=== PATIENT | female | born 1970 | race Caucasian/White ===

== ENCOUNTER 2025-01-26 13:05 | Outpatient (CLI) | payer BC, SELFPAY ==
--- OUTSIDE RECORDS SUMMARY | 2025-01-26 14:42 | XMS_ITS | Continuity of Care Document ---
Author Organization [facility] Address [address] [place] [address] Phone Care Team Providers Care Vascular Technologist Name Role Phone Messi Saunders MD Unavailable Unavailable Allergies, Adverse Reactions, Alerts Substance Reaction Status Criticality azithromycin Vomiting Active No Information levofloxacin RashRash Active No Information codeine RashRash Active No Information Medications Medication Instructions Dosage Effective Dates (start - stop) Status Comments levothyroxine 75 mcg tablet take 1 tablet by oral route every day 75 MCG - Active Reclast 5 mg/100 mL intravenous piggyback take 1 Tablet by Oral route once 1 Tablet - Active Vitamin D3 125 mcg (5,000 unit) tablet take 1 tablet by oral route every day - No Longer Active Procedures Procedure Date FALL RISK ASSESSMENT DOC'D PRES/ABSN URINE INCON ASSESS Pt inelig neg scrn depres PREVENTATIVE-EST: 40-64 BODY MASS INDEX DOCD SYST BP LT 130 MM HG DIAST BP 80-89 MM HG FALL RISK ASSESSMENT DOC'D PRES/ABSN URINE INCON ASSESS URINALYSIS, DIPSTICK (UA) - Office Lab F Pt inelig neg scrn depres PREVENTATIVE-NEW: 40-64 BODY MASS INDEX DOCD SYST BP LT 130 MM HG DIAST BP < 80 MM HG Advance Directives Directive Yes / No Effective Date File Name No Information Encounters Encounter Description Practice Location Reason(s) For Visit Diagnoses Date Provider Providers Copied on Encounter [facility], [address], [place], [place], [address] , tel: [phone] [facility] No Information 5 Chip Swenson. [address] [place] [address], [address] , [place], [place], [address] , . tel: [phone] Referring Provider: Messi Saunders, [address] [place] [address] [address] , [place], [address] . tel:[phone] PREVENTATIVE -EST: [facility], [address], [place], [place], [address] , tel: [phone] [facility] Chronic Conditions (chief complaint)c hronic conditions (chief complaint) Encounter for annual health examinationAcquired hypothyroidismOAB (overactive bladder)Body mass index [BMI] 26.0-26.9, adult 4 Chip Swenson. [address] [place] [address], [facility] [address] , [place], [place], [id number] , . tel: [phone] Referring Provider: Messi Saunders, [address] [place] [address] [address] , [place], [place], [address] [place] [address] . tel:[phone] [facility], [address], [place], [place], [address] , tel: [phone] [facility] No Information 3 Chip Swenson. [address] [place] [address], [address] [place], [place], [id number] , . tel: [phone] PREVENTATIVE -NEW: [facility], [address], [place], [place], [address] , tel: [phone] [facility] preventive exam (chief complaint)C hronic Conditions (chief complaint)c hronic conditions (chief complaint) Encounter for general adult medical examination without abnormal findingsMalignant neoplasm of right female breast, unspecified estrogen receptor status, unspecified site of breastAcquired hypothyroidismHearin g loss of left ear, unspecified hearing loss typeSeasonal allergiesAnxiety and depressionPrimary insomniaUrinary urgencyMicroscopic hematuriaHistory of acute lymphoid leukemiaBody mass index [BMI] 28.0-28.9, adult [address] Elo Winter[id number] [place] [address], [address], [place], [place], [address] , . tel: [phone] Referring Provider: Messi Saunders, [address] [place] [address] [address], [place], [address] . tel:[phone] Family History Family Member Type Diagnosis Age At Onset Father Problem Hypercholesterolemia Father Problem Hearing loss Mother Problem Diabetes mellitus Sister Problem Mental disorder Father Problem Dementia Father Problem Stroke Brother Problem Obesity Sister Problem Cancer, breast Father Problem Hypertension Mother Problem Obesity Mother Problem Irritable bowel syndrome Sister Problem Migraine headaches Immunizations Vaccine Date Status Comments Pfizer Comirnaty COVID vacci ne, sonny-sucrose, 30mcg/0.3mL dose, 12 years and older administered Source: Source Unspe cified Fluzone Trivalent, preservat lindsay free, split virus, 0.5mL dosage administered Source: Source Unspecified SHINGRIX (Zoster vaccine recombinant, adjuvanted) administered Source: Source Unspecified SHINGRIX (Zoster vaccine recombinant, adjuvanted) administered Source: Source Unspecified Pneumococcal conjugate PCV20 administered Source: Source Unspecified Moderna (Bivalent Booster) C OVID Vac, 50mgc/0.5 mL, 18+ years administered Source: Terrie rce Unspecified Fluzone High-Dose, high dose , preservative free administered Source: Source Unspe cified Tdap administered Source: Source Unspecified Moderna COVID19 Vaccine, 0.5 mL per dose, 2 doses, administered 28 days apart administered Source: Source Unspe cified J&J COVID/Adenovirus Vaccine [id number] viral particles/0.5mL administered Source: Terrie rce Unspecified Payers Payer name Insurance type Covered green party ID Authoriza tion(s) No Information Social History Type Description Quantity Date Captured Comments Sex Female Smoking Status No Information Chief Complaint And Reason For Visit No Information Reason For Referral Reason For Referral No Information Plan Of Treatment Date Type Action Status Goal Dietary manageme nt education, guidance, and counseling completed Goal Dietary manageme nt education, guidance, and counseling completed Appointment Penny Walter BOOKED History Of Present Illness Encounter Date Complaint History Of Prese nt Illness Chronic Conditions *See Chronic Conditions HPI chronic conditions *See Chronic Conditions HPI chronic conditions *See Chronic Conditions HPI Chronic Conditions *See Chronic Conditions HPI preventive exam : 2. Tasneem ty: Term: 2. Livin. The patient states she uses abstinence for control. Last LMP was 09/07/2013. Her menses is absent. Negative for: breast discharge, breast lump(s) and breast pain. Positive for: breast self exam.Postmenopausal: Type: chemo induced. Negative for Hormone replacement therapy. Menopausal symptoms negative for: hot flashes, night sweats and vaginal dryness. Menopausal symptoms positive for: insomnia. Associated symptoms include anxiety and depression. Pertinent negatives include abnormal bleeding (hematology), abnormal vaginal bleeding, difficulty falling sleep, history of infertility, nocturia, sexual dysfunction, sleep disturbances, urinary incontinence, urinary urgency, vaginal discharge and vaginal itching. Diet healthy. She reports getting calcium from dietary sources. She reports getting calcium supplement daily. She reports taking a vitamin D supplement daily. She does not take multivitamins. She does not take Folic acid.The patient states her exercise level is moderate. The patient does not use tobacco. She has not been exposed to passive smoke. She has not been exposed to passive vaping. She formerly drank alcohol. Additional information: She is here today to establish as a new pt. of this practice. She is , 2 sons. She states she is not presently working- was displaced she states. She does not smoke, stopped drinking alcohol in 2016. She had mammogram in Jun 2022, colonoscopy in February 2022. She is going to see manager recruiting for well woman exam soon. She sees Dr Peraza for endocrinology, Dr [facility] for breast cancer (Yessi Rodriguez), She notes she will be seeing Dr Pollard at [facility] next month after breast MRI/mammogram. She had 1 COVID vaccine (Aditya & Aditya) and 2 boosters. She had flu vaccine 07/30/22, She has not had shingrix vaccine.. Functional Status Date Functional Assessmen t No Information Instructions Date Instruction Additional Infor mation Get appropriate vacc martha. Return 1 year Related to Encounter for annual health examination Giving encouragement to exercise Related to Body mass index (BMI) 26.0-26.9, adult Dietary management e ducation, guidance, and counseling Related to Body mass index (BMI) 26.0-26.9, adult Disease process Get labs as planned. Related to Acquired hypothyroidism Could see urology. Related to OA B (overactive bladder) She is here today to establish as a new pt. of this practice. She is , 2 sons. She states she is not presently working- was displaced she states. She does not smoke, stopped drinking alcohol in 2016. She had mammogram in Jun 2022, colonoscopy in February 2022. She is going to see manager recruiting for well woman exam soon. She sees Dr Peraza for endocrinology, Dr [facility] for breast cancer (Yessi Rodriguez), She notes she will be seeing Dr Pollard at [facility] next month after breast MRI/mammogram. She had 1 COVID vaccine (Aditya & Aditya) and 2 boosters. She had flu vaccine 07/30/22, She has not had shingrix vaccine. Related to Encounter for general adult medical examination without abnormal findings She continues to fol low with oncology. Related to History of acute lymphoid leukemia sending sample to lab for C&S. R elated to Microscopic hematuria Checking urine dip today Related to Urinary urgency Discussed good sleep habits with her. Related to Primary insomnia She will advise if symptoms wors en. Related to Anxiety and depression She will advise if s ymptoms worsen or when OTC meds are not helpful. Related to Seasonal allergies She states she will advise of changes in hearing. Related to Hearing loss of left ear, unspecified hearing loss type She will continue pl an of care with Dr Peraza. Related to Acquired hypothyroidism Continue present corrina n of care, has mamm and MRI scheduled [facility] next month and will see specialists as well. She agrees to advise of any changes Related to Malignant neoplasm of right female breast, unspecified estrogen receptor status, unspecified site of breast Disease process Dietary management e ducation, guidance, and counseling Related to Body mass index (BMI) 28.0-28.9, adult Prescribed activity/ exercise education Related to Body mass index (BMI) 28.0-28.9, adult Assessments Type Assessment Date No Information Patient Care Teams Name Effective Dates (start - stop) Status Members No Information
--- OUTSIDE RECORDS SUMMARY | 2025-01-26 14:42 | XMS_ITS | Clinical Summary ---
Author Organization [facility] Address [address] [place] [address] Phone Care Team Providers Care Hose Operator Name Role Phone Unavailable Unavailable Unavailable Reason for Visit and Chief Complaint LINER ROLL CHANGER EXAM Problems Includes: Problems addressed during this encounter and other active Problems All Visits Onset Date Resolved Date Provider Condition S tatus Drug Toxicity Chemotherapeutics 12/04/2013 BEKA LUONG MD Active Last Documented On 4 11:15AM ; [facility] History of Ductal Xlckvcvqn-qd-ooeg of the Breast 12/04/2013 BEKA LUONG MD Active Last Documented On 4 11:10AM ; [facility] Note: Dr. Regine Sethi oncologist Irregular Menstrual Bleeding 03/25/2013 BEKA LUONG MD Active Last Documented On 3 9:54AM ; [facility] HEARTBURN 11/17/2011 JEFRY SALAZAR M.D. A ctive Last Documented On 2 10:51AM ; [facility] DISORDER OF THYROID NOS 02/14/2011 JEFRY GARRETT M.D. Active Last Documented On 1 9:08AM ; [facility] Plan of Treatment No Plan of Treatment Recorded Assessments Includes: Assessments from this encounter No Assessments Recorded Medical Equipment - Implanted Devices Includes: Current Devices No Medical Equipment Recorded Medications Includes: Medications discussed during this encounter and other current Medications Discontinued / Stopped on this date on 02/10/2016 Mirtazapine 30 MG Tablet Provider: Diagnosis: Last Documented On 02/19/2017 3:47PM By ELIAS JARQUIN LPN ; [facility] Pantoprazole Sodium 40 MG OR TBEC Provide r: SALEEM DUMONT MD Diagnosis: Last Documented On 02/19/2017 3:47PM By ELIAS JARQUIN LPN ; [facility] Current Medications (continue as prescribed) [facility] Melatonin 10MG Oral Capsule, conventional 02/26/20 18 Provider: Diagnosis: Last Documented On 8 3:39PM By NATIVIDAD COTA ; [facility] Pepcid 20MG Oral Tablet 02/19/2017 Provider: Diagnosis: Last Documented On 02/19/2017 3:48PM By ELIAS JARQUIN LPN ; [facility] Vitamin D3 1000UNIT Oral Tablet Chewable 7 Provider: Diagnosis: Last Documented On 02/19/2017 3:48PM By ELIAS JARQUIN LPN ; [facility] Vitamin C 1000MG Oral Tablet Chewable 02/19/2017 Provider: Diagnosis: Last Documented On 02/19/2017 3:48PM By ELIAS JARQUIN LPN ; [facility] Tamoxifen Citrate 10 MG OR TABS 12/04/2013 Provider: Diagnosis: Last Documented On 12/04/2013 11:10AM By ALAINA JOSHUA LPN ; [facility] Levothyroxine Sodium 75 MCG OR TABS 11/17/2011 Provi marylu: Diagnosis: Last Documented On 2 11:10AM By DR. JEFRY SALAZAR ; [facility] Medications Administered Includes: Administered Medications from this encounter No Administered Medications Recorded Results Includes: Results discussed during this encounter No Results Recorded For Specified Dates History of Present Illness Includes: History of Present Illness from this encounter No History of Present Illness Recorded Social History No Social History Recorded - Smoking Status Unknown Medical History Includes: Medical History addressed during this encounter No Medical History Recorded Family History Includes: Family History addressed during this encounter No Family History Recorded Review of Systems Includes: Review of Systems from this encounter No Review of Systems Recorded Mental Status Includes: Mental Status from this encounter No Mental Status Recorded Functional Status Includes: Functional Status from this encounter No Functional Status Recorded Physical Exam Includes: Physical Exam from this encounter No Physical Exam Recorded Allergies Includes: Active Allergies Substance Type Reaction Onset Date Resolved Date Statu s Zithromax Allergy 12/04/2013 Active Last Documented On 8 3:39PM ; [facility] Levaquin Allergy 12/04/2013 Active Last Documented On 8 3:39PM ; [facility] Codeine Allergy 10/04/2009 Active Last Documented On 8 3:39PM ; [facility] Clinical Notes Includes: Clinical Notes from this encounter No Clinical Notes Recorded
--- OUTSIDE RECORDS SUMMARY | 2025-01-26 14:42 | XMS_ITS | Encounter Summary ---
Author Organization [facility] Address [address] [place] [address] Care Team Providers Care Tuber Machine Operator Name Role Phone Sharifa Sin Primary Care Provider [phone] Leslie Parker MD Unavailable [phone] Tata Bang MD Unavailable [phone] Rima Peraza MD Unavailable Kenny Ansari MD Unavailable [phone] Messi Goff MD Unavailable [phone] Messi Saunders MD Primary Care Provider Kenny Ansari MD Unavailable [phone] Encounter Details Date Type Department Care Team (Late st Contact Info) Description 05/20/2020 E-Visit [facility] HealthCare/ Physicians [address] [place] [address] Kimmy Villasenor, FACILITIES ADMINISTRATOR [address] [address] RE: E-Visit Submission: COVID-19 Evaluation Social History Tobacco Use Types Packs/Day Years Used Date Smoking Tobacco: Never Smokeless Tobacco: Never Alcohol Use Standard Drinks/Week Comments Not Currently 0 (1 standard drink = 0.6 oz pur e alcohol) rarely PHQ-2 Answer Date Recorded PHQ-2 Score 0 07/25/2019 Comments No Sex and Gender Information Value Date Recorded Sex Assigned at Not on file Legal Sex Female 10:29 AM SPECIAL EDUCATION SECRETARY Gender Identity Female 10/19/2022 10:44 AM SPECIAL EDUCATION SECRETARY Sexual Orientation Not on file documented as of this encounter Plan of Treatment Not on file documented as of this encounter Visit Diagnoses Diagnosis Cough Sore throat Acute pharyngitis Exposure to COVID-19 virus documented in this encounter Additional Health Concerns Infection Onset Date Last Indicated Resolved Time COVID: Suspected 05/20/2020 05/21/2020 05/21/2020 7:36 PM CDT Respiratory Infection (SARAH), contact + droplet Comment:Automatically added due to negative COVID-19 result. 05/21/2020 05/21/2020 06/04/2020 3:0 7 AM CDT COVID: Suspected 10/02/2023 10/02/2023 10/02/2023 8:50 AM SPECIAL EDUCATION SECRETARY COVID: Suspected 07/15/2024 07/15/2024 07/15/2024 10:38 AM CDT documented as of this encounter Care Teams Tuber Machine Operator Relationship Specialty Start Date End Date Sharifa SinDO PCP - General 05/27/19 12/14/22 [place] [address] [address] PCP - General Internal Medicine 12/15/22 Leslie Parker MD Child And Family Counselor Obstetrics and Gynecology 07/07/19 Tata Bang MD Surgeon Surgical Oncology 07/07/19 [place] [address] [address] Referring Physician Endocrinology Diabetes & Metabolism 09/01/19 [place] [address] [place] [address] Medical Oncologist/Hematologis t Hematology and Oncology 02/10/20 01/16/23 Messi Goff MD [address] [facility] [place] [address] Consulting Physician Gastroenterology 11/17/21 [place] [address] [address] Medical Oncologist/Hematologis t Hematology and Oncology 01/17/23 documented as of this encounter
--- OUTSIDE RECORDS SUMMARY | 2025-01-26 14:42 | XMS_ITS ---
Care Plan - [facility] Created on: January 26, 2025 ELSA ZAMORA : 1970 Sex: Female Author Organization [facility] Address [address] [place] [address] Phone Care Team Providers Care Primary Class Teacher Name Role Phone Unavailable Unavailable Unavailable
--- OUTSIDE RECORDS SUMMARY | 2025-01-26 14:42 | XMS_ITS | Clinical Summary ---
Author Organization [facility] Address [address] [place] [address] Phone Care Team Providers Care Dye Colorist Formulator Name Role Phone Unavailable Unavailable Unavailable Reason for Visit and Chief Complaint * PHONE CALL Problems Includes: Problems addressed during this encounter and other active Problems All Visits Onset Date Resolved Date Provider Condition S tatus Drug Toxicity Chemotherapeutics 12/04/2013 BEKA LUONG MD Active Last Documented On 4 11:15AM ; [facility] History of Ductal Wgiaytlct-ve-mskl of the Breast 12/04/2013 BEKA LUONG MD Active Last Documented On 4 11:10AM ; [facility] Note: Dr. Regine Sethi oncologist Irregular Menstrual Bleeding 03/25/2013 BEKA LUONG MD Active Last Documented On 3 9:54AM ; [facility] 11/17/2011 JEFRY SALAZAR M.D. A ctive Last Documented On 2 10:51AM ; [facility] DISORDER OF THYROID NOS 02/14/2011 JEFRY GARRETT M.D. Active Last Documented On 1 9:08AM ; [facility] Plan of Treatment No Plan of Treatment Recorded Assessments Includes: Assessments from this encounter No Assessments Recorded Medical Equipment - Implanted Devices Includes: Current Devices No Medical Equipment Recorded Medications Includes: Medications discussed during this encounter and other current Medications Current Medications (continue as prescribed) [facility] Melatonin 10MG Oral Capsule, conventional 02/26/20 Provider: Diagnosis: Last Documented On 8 3:39PM By NATIVIDAD COTA ; [facility] Pepcid 20MG Oral Tablet 02/19/2017 Provider: Diagnosis: Last Documented On 02/19/2017 3:48PM By ELIAS JARQUIN LPN ; [facility] Vitamin D3 1000UNIT Oral Tablet Chewable 7 Provider: Diagnosis: Last Documented On 02/19/2017 3:48PM By ELIAS JARQUIN LPN ; [facility] Vitamin C 1000MG Oral Tablet Chewable 02/19/2017 Provider: Diagnosis: Last Documented On 02/19/2017 3:48PM By ELIAS JARQUIN LPN ; [facility] Tamoxifen Citrate 10 MG OR TABS 12/04/2013 Provider: Diagnosis: Last Documented On 12/04/2013 11:10AM By ALAINA JOSHUA LPN ; [facility] Levothyroxine Sodium 75 MCG OR TABS 11/17/2011 Provi marylu: Diagnosis: Last Documented On 2 11:10AM By DR. JEFRY SALAZAR ; [facility] Past Medications on file Anusol-HC 2.5% RE CREA 11/17/2011 - 03/16/2012 Provide r: JEFRY SALAZAR M.D. Diagnosis: HEMORRHOIDS NOS apply PRN Last Documented On 2 11:15AM By DR. JEFRY SALAZAR ; [facility] LO-LOESTRIN FE 10/17/10 MG/MCG MT TABS 11/15/2010 - 03/15/2011 Provider: JEFRY SALAZAR M.D. Diagnosis: OTHER FAMILY TINY NNING ADVICE NEC Last Documented On 1 9:38AM By DR. JEFRY SALAZAR ; [facility] Mircette 0.15-0.02/0.01 MG (25/02) OR TABS 10/22/2008 - 10/17/2009 Provider: Diagnosis: Last Documented On 9 11:44AM By DEENA MALLOY ; [facility] Medications Administered Includes: Administered Medications from this [...] Active Last Documented On 8 3:39PM ; [facility] Levaquin Allergy 12/04/2013 Active Last Documented On 8 3:39PM ; [facility] Codeine Allergy 10/04/2009 Active Last Documented On 8 3:39PM ; [facility] Encounters Encounter Provider Location Date Check-In Time Check-Out Time Diagnosis * PHONE CALL BEKA LUONG MD [facility] FREELANCE ART DIRECTOR 5 9:19AM 11:59PM Clinical Notes Includes: Clinical Notes from this encounter No Clinical Notes Recorded
--- OUTSIDE RECORDS SUMMARY | 2025-01-26 14:42 | XMS_ITS | Clinical Summary ---
Author Organization [facility] Address [address] [place] [address] Care Team Providers Care Orchard Worker Name Role Phone Leslie Parker MD Unavailable [phone] Tata Bang MD Unavailable [phone] Rima Peraza MD Unavailable [phone] Messi Goff MD Unavailable [phone] Messi Saunders MD Primary Care Provider [phone] Kenny Ansari MD Unavailable [phone] Allergies Active Allergy Reactions Criticality Noted Date Comments Azithromycin Other (See comments),Vomiting Medium Reaction: Hives, , , , Reaction: vomitting, , Codeine Hives,Rash High Reaction: Hives, , , Reaction: Rash, , Reaction: Hives, Rash, Levofloxacin Other (See comments),Nausea only,Vomiting Low Reaction: Rash, , , Reaction: nausea, vomitting, , Pantoprazole Rash Medium 02/15/2022 Medications levothyroxine (SYNTHROID, LEVOTHROID) 75 mcg tablet take 1 tablet (75MCG) by oral route every day 0 12/27/2012 Active cholecalciferol, vitamin D3, 1,000 unit tablet,chewable Take 0.05 mg by mouth daily 08/26/2021 Active Lactobacillus acidophilus 10 billion cell capsule Take by mouth Active ascorbic acid (VITAMIN C) 100 mg tablet Take 2.5 tablets (250 mg total) by mouth daily Active biotin 1 mg capsule Take by mouth Active Myrbetriq 25 mg tablet extended release 24 hr Take 1 tablet (25 mg total) by mouth 04/07/2023 Active tamoxifen (NOLVADEX) 10 mg tablet TAKE 1 TABLET(10 MG) BY MOUTH TWICE DAILY 180 tablet 1 04/28/2024 Active Active Problems Problem Noted Date Diagnosed Date Abnormal MRI, breast 07/02/2023 Odynophagia 02/13/2022 Overview (02/13/2022): Added automatically from request for surgery [id number] Screening for colon cancer 02/13/2022 Overview (02/13/2022): Added automatically from request for surgery [id number] Invasive ductal carcinoma of right breast in fem sania 12/18/2019 BMI 29.0-29.9,adult 07/07/2019 History of long-term treatment with high-risk me dication 07/07/2019 Vitamin D deficiency 08/14/2017 History of breast cancer 08/01/2017 Assessment & Plan (11/11/2020 3:12 PM SUPERCALENDER OPERATOR): Currently taking tamoxifen. Managed by Oncology. Hypothyroidism due to Boris's thyroiditis Assessment & Plan (11/11/2020 3:11 PM SUPERCALENDER OPERATOR): Stable. Cont. Current meds. Managed by endocrinology. Assessment & Plan (11/07/2019 6:39 PM SUPERCALENDER OPERATOR): Managed by endocrinology. Gastroesophageal reflux disease 06/15/2014 Overview (01/11/2017): Gastroesophageal reflux disease Assessment & Plan (02/13/2022 2:56 PM CDT): egd Assessment & Plan (11/07/2019 6:40 PM SUPERCALENDER OPERATOR): Managed by GI. 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 Malignant neoplasm of breast 06/05/2013 Overview (01/12/2017): Breast cancer, right breast Assessment & Plan (11/07/2019 6:40 PM SUPERCALENDER OPERATOR): Managed by Heme/Onc. Chronic venous insufficiency 05/08/2013 Overview (01/12/2017): Venous insufficiency Carcinoma in situ of breast 05/07/2013 Resolved Problems Problem Noted Date Diagnosed Date Resolved Date Screening for thyroid disorder 11/11/2020 11/11/2020 Biliary dyskinesia 01/10/2019 9 Overview (01/10/2019): Added automatically from request for surgery [id number] Nausea 12/20/2018 11/07/2019 Assessment & Plan (12/20/2018 3:52 PM CDT): Elevated LFTs began recently and always notrmal before. Sono shows gallstones without other signs of GB disease. Nausea since 09/24 about time lfts elevated. This all may be unified by GB disease and treated with clole. Will egd and do hepatitis viral profile and PATRICIA and go from there Gall stones 12/20/2018 02/19/2019 Overview (12/20/2018): Added automatically from request for surgery [id number] Abdominal pain 12/20/2018 11/07/2019 Overview (12/20/2018): Added automatically from request for surgery [id number] Assessment & Plan (03/10/2019 2:13 PM CDT): All sx resolved with nazario. Have pmd repeat LFTs to be sure of normalizzation and return prn Nausea and vomiting 12/20/2018 11/07/19 20 Overview (12/20/2018): Added automatically from request for surgery [id number] Calculus of gallbladder with out cholecystitis without obstruction 12/13/2018 02/19/2019 Assessment & Plan (12/13/2018 11:13 AM SUPERCALENDER OPERATOR): Patient main concern is of nausea, unrelated, or unknown to food intake. Will have GI work up to rule out PUD or other possible etiologies. Elevated LFTs 12/13/2018 11/11/2020 Assessment & Plan (07/25/2019 3:36 PM CDT): Reviewed with patient abnormal transaminases beginning in 11/26 and perwsisting. Prior to that from 05/25 and all preceeding werre normal. Viral panel neg,sono nl,HIDA normal but nazario anyway. Pattern c/w occult viral disease or DILI. Ptient convinced aciphex is the cause. I reviewed all labs,notes,images and procedures. Will repeat LFTs in 4 weeks with and PATRICIA and recap. Assessment & Plan (12/13/2018 11:12 AM SUPERCALENDER OPERATOR): Slow rise in lft's (ast and alt) unknown etiology. Main complaint is of nausea. Will send referral to GI for evaluation, if work up is negative will re assess the gallstones. Depression 07/27/2016 11/11/2020 Viral upper respiratory tract infection 06/16/2016 11/07/2019 Overview (01/11/2017): Viral upper respiratory tract infection Acute suppurative otitis med ia without spontaneous rupture of ear drum 06/16/2016 11/07/19 20 Overview (01/11/2017): Acute suppurative otitis media of left ear without spontaneous rupture of tympanic membrane, recurrence not specified Malaise and fatigue 02/21/2014 11/07/19 20 Overview (01/10/2017): MALAISE AND FATIGUE NEC Abnormal weight gain 02/21/2014 020 Overview (01/12/2017): ABNORMAL WEIGHT GAIN Anxiety 12/27/2012 11/11/2020 Overview (01/10/2017): Anxiety Immunizations Immunization Administration Dates Next Due Influenza, Quadrivalent, Milly l Culture-based MDCK, Preservative Free, Antibiotic Free, Intramuscular 09/10/2023 Influenza, Quadrivalent, Hig h Dose, Preservative Free, Intrr 07/30/2022 Influenza, Quadrivalent, Spl it, Intramuscular 08/23/2016 Influenza, Quadrivalent, Spl it, Preservative Free, Intramuscular 08/07/2022,07/30/2021,07/11/2020 Influenza, Unspecified 09/11/2023,2019,07/11/2019,08/02 [employer] SARS-CoV-2 Vaccination 12/13/2020 Pneumococcal Conjugate Pcv20 09/17/2023 Tdap 11/17/2021 ZOSTER Recombinant 11/18/2023,09/17/2023 Surgical History Surgery Date Site/Laterality Comments OTHER SURGICAL HISTORY 10/08/1990 - 10/07/1991 ALL: Silverman catheter OTHER SURGICAL HISTORY 05/19/2013 Left Port a Cath Placement / Left Subclavian OTHER SURGICAL HISTORY 10/05/2014 Left Removal of Port A Cath from Left Subclavian BREAST LUMPECTOMY 04/07/2013 - 05/07/2013 Right Right Lumpectomy CHOLECYSTECTOMY 01/24/2019 Dr. Gomez COLONOSCOPY 04/07/2011 - 05/07/2011 Medical History Medical History Date Comments Depression Gastroesophageal reflux disease Disorder of thyroid Back pain Cholelithiasis 11/2018 Hypothyroidism PONV (postoperative nausea and vomiting) Malignant neoplasm of female breast (HCC) 2012 Cancer, breast; Comments: DNT 06/19/2014 - Dx 2012. Lumpectomy followed by chemo and RTx ALL (acute lymphoblastic leukemia) (HCC) 1990 chemo from [id number] Family History Medical History Relation Name Comments Hypertension Father Stroke Father Stroke; Diabetes Mother Diabetes mellit us; Mental illness Other Family histor y of Mental illness; Diabetes Paternal Grandmother Breast cancer Sister Cancer Sister Relation Name Status Comments Father Alive Mother Other Paternal Grandmother Sister Alive Social History Tobacco Use Types Packs/Day Years Used Date Smoking Tobacco: Never Smokeless Tobacco: Never Tobacco Cessation:Counseling Given: Not Answered Alcohol Use Standard Drinks/Week Comments Not Currently 0 (1 standard drink = 0.6 oz pur e alcohol) rarely AUDIT-C Answer Date Recorded Q1: How often do you have a drink containing alcohol? Never 08/12/2024 Q2: How many drinks containi ng alcohol do you have on a typical day when you are drinking? Patient does not drink Q3: How often do you have si x or more drinks on one occasion? Never 08/12/2024 PHQ-2 Answer Date Recorded PHQ-2 Total Score (If total score is 3 or more points, staff should administer the PHQ-9) 0 11/17/2021 Comments No Sex and Gender Information Value Date Recorded Sex Assigned at Not on file Legal Sex Female 10:29 AM SUPERCALENDER OPERATOR Gender Identity Female 10/19/2022 10:44 AM SUPERCALENDER OPERATOR Sexual Orientation Not on file Obstetrics History Last Filed Vital Signs Vital Sign Reading Time Taken Comments Blood Pressure 134/82 08/12/2024 9:48 AM SUPERCALENDER OPERATOR Pulse 76 08/12/2024 9:48 AM SUPERCALENDER OPERATOR Temperature 36.3 C (97.3 F) 08/12/2024 9:48 AM SUPERCALENDER OPERATOR Respiratory Rate 18 08/12/2024 9:48 AM SUPERCALENDER OPERATOR Oxygen Saturation 97% 08/12/2024 9:48 AM SUPERCALENDER OPERATOR Inhaled Oxygen Concentration - - Weight 61.4 kg (135 lb 5.8 oz) 08/13/2024 10:47 AM SUPERCALENDER OPERATOR Height 149.9 cm (4' 11.02 ) 08/13/2024 10:47 AM SUPERCALENDER OPERATOR Body Mass Index 27.33 08/13/2024 10:47 AM SUPERCALENDER OPERATOR Plan of Treatment Health Maintenance Due Date Last Done Comments Hepatitis B Screening 1990 Cervical Cancer Screening 11/09/2021 11/09/2020 Depression Screening 11/17/2022 11/17/2021, 02/09/2021, 02/02/2021, Additional history exists Regular Well Visit/Exam 18-64 11/17/2022, 11/11/2020, 11/07/2019 Covid-19 Vaccine (5 - 2023-2 5 season) 2024 09/10/2023, 08/07/2022, 07/30/2021, Additional history exists Influenza Vaccine (Season Ended) 2025 09/11/2023, 09/10/2023, 08/07/2022, Additional history exists Breast Cancer Screening-Mammogram 08/13/2025 08/13/2024, 07/02/2023, 06/23/2022, Additional history exists DTaP/Tdap/Td Vaccine (2 - Td or Tdap) 11/17/2031 11/17/2021 Colon Cancer Screening-Colonoscopy 02/17/20322021, 05/05/2011 Hepatitis C Screening Completed 11/11/2020 , 07/23/2019, 12/24/2018 Pneumococcal vaccine <65 Completed 09/17/2023 Zoster Vaccine Completed 11/18/2023, 09/17/2023 Procedures Procedure Name Priority Date/Time Associated Diagnosis Comments SCREENING MAMMOGRAM BILATERAL W BROCK Schedule Routine, Read Routine (OP Routine) 08/13/2024 11:29 AM SUPERCALENDER OPERATOR Breast cancer screening, high risk patient COLONOSCOPY 02/16/2022 11:50 AM CDT HEPATITIS C ANTIBODY Routine 11/11/2020 2:33 PM SUPERCALENDER OPERATOR Encounter for hepatitis C screening test for low risk patient HM PAP SMEAR WITH HPV Routine 11/09/2020 9:41 AM SUPERCALENDER OPERATOR from Last 3 Months or Most Recently Relevant to Health Maintenance Results * Screening Mammogram Bilateral W Brock (08/13/2024 11:29 AM SUPERCALENDER OPERATOR) Anatomical Region Laterality Modality Breast Bilateral Mammography Narrative 08/13/2024 2:48 PM SUPERCALENDER OPERATOR Mammogram Technique: Bilateral Digital Breast Tomosynthesis, Bilateral C-view 2D Screening mammogram. Views obtained: bilateral craniocaudal and bilateral mediolateral oblique. Computer Aided Detection was performed. Mammogram Findings: The present examination has been compared to prior imaging studies performed at [facility] on 06/23/2022, 12/22/2022 and 07/02/2023. There are scattered areas of fibroglandular density. There are post breast conservation therapy changes in the right breast. There is no suspicious abnormality in either breast. Impression: There is no mammographic evidence of malignancy. Annual screening mammography is recommended. OVERALL FINAL ASSESSMENT: BI-RADS CATEGORY 2: Benign. Procedure Note Marlin Murillo MD - 08/13/2024 Mammogram Technique: Bilateral Digital Breast Tomosynthesis, Bilateral C-view 2D Screening mammogram. Views obtained: bilateral craniocaudal and bilateral mediolateral oblique. Computer Aided Detection was performed. Mammogram Findings: The present examination has been compared to prior imaging studies performed at [facility] on 06/23/2022, 12/22/2022 and 07/02/2023. There are scattered areas of fibroglandular density. There are post breast conservation therapy changes in the right breast. There is no suspicious abnormality in either breast. Impression: There is no mammographic evidence of malignancy. Annual screening mammography is recommended. OVERALL FINAL ASSESSMENT: BI-RADS CATEGORY 2: Benign. Alise Enriquez NP IMG MAMMO PROCEDURES Final Result * COLONOSCOPY (02/16/2022 11:50 AM CDT) Anatomical Region Laterality Modality Other Narrative Procedure Note Messi Goff MD - 02/16/2022 11:50 AM CDT [facility] Patient Name: Edita Walter Procedure Date: 02/16/2022 11:50 AM Date of : 1970 Admit Type: Outpatient Age: 51 Gender: Female Attending MD: Messi Goff M.D. Room: [facility] 2 Note Status: Finalized Patient Profile: Refer to note in patient chart for documentation of history and physical. Procedure: Colonoscopy Indications: Screening for colorectal malignant neoplasm, Last colonoscopy: April 2011 Referring MD: Sharifa Sin D.O. Providers: Messi Goff M.D. Impression: - Hemorrhoids found on perianal exam. - Diverticulosis in the sigmoid colon. - The examination was otherwise normal. - No specimens collected. Recommendation: - Discharge patient to home. - Resume previous diet. - Continue present medications. - Repeat colonoscopy in 10 years for screening purposes. - Return to primary care physician as previously scheduled. Medicines: Propofol per Anesthesia Complications: No immediate complications. Estimated Blood Loss: Estimated blood loss: none. Procedure: Pre-Anesthesia Assessment: - This assessment was completed [Time ofAssessment] prior to the administration of sedation. The benefits, risks and alternatives of theprocedure and sedation were discussed and informed consentwas obtained. All questions were answered. Please referto the signed informed consent document in the medical record. The bowel preparation used was Miralax via single dose instruction. The bowel preparation used was bisacodyl tablets via single dose instruction.The scope was passed under direct vision. TheColonoscope [id number] was introduced through the anus and advanced to the the cecum, identified by appendiceal orifice and ileocecal valve. The colonoscopy was performed without difficulty. The patient tolerated the procedure well. The qualityof the bowel preparation was good. The ileocecalvalve, appendiceal orifice, and rectum werephotographed. Findings: Hemorrhoids were found on perianal exam. Multiple small and large-mouthed diverticula were found in thesigmoid colon. The exam was otherwise without abnormality. Electronically signed by Messi Goff M.D. Messi Goff M.D. 02/16/2022 1:14:49 PM Number of Addenda: 0 Note Initiated On: 02/16/2022 11:50 AM Procedure Code(s): --- Professional --- G0121, Colorectal cancer screening; colonoscopy on individual not meeting criteria for high risk Diagnosis Code(s): --- Professional --- K57.30, Diverticulosis of large intestine without perforation orabscess without bleeding K64.9, Unspecified hemorrhoids Z12.11, Encounter for screening for malignant neoplasm of colon CPT copyright 2020 [employer]. All rights reserved. The codes documented in this report are preliminary and upon bookbinder chief reviewmay be revised to meet current compliance requirements. Recognized by the [employer] for promoting quality in endoscopy us Messi Goff MD ENDOSCOPY PROCEDURES Final Re sult * Hepatitis C antibody (11/11/2020 2:33 PM SUPERCALENDER OPERATOR) Hep C Ab Nonreactive Nonreactive [facility] ([place]) Comment: Interpretive Data Nonreactive: Antibodies to HCV not detected. Does NOT exclude the possibility of recent exposure to HCV. Equivocal: Equivocal for HCV antibodies. Supplemental molecular testing will be automatically performed to determine infection status in accordance with current CDC screening recommendations. Reactive: Positive for HCV antibodies. This may represent current or past HCV infection. Supplemental molecular testing will be automatically performed to determine current infection status in accordance with current CDC screening recommendations. Interpretive data was last revised on 2019. Testing performed by: [facility], [address] [place] [address], [place]., [address] Blood specimen (specimen) 11/11/2020 2:33 PM SUPERCALENDER OPERATOR 11/11/2020 6:47 PM SUPERCALENDER OPERATOR us Sharifa Sin DO LAB MICROBIOLOGY - GENERAL ORDERABLES Final Result [facility] SORIA ([place]) [address] [facility] Department [place] [address] * HM PAP SMEAR WITH HPV (11/09/2020 9:41 AM SUPERCALENDER OPERATOR) Scribed Pap Smear w/HPV Normal 11/09/2020 9:41 AM SUPERCALENDER OPERATOR us Historical Provider HEALTH MAINTENANCE Final Result from Last 3 Months or Most Recently Relevant to Health Maintenance Insurance [facility] [place] [employer] [place] Advance Directives For more information, please contact: [phone] * Full Code (Latest Code Status on File) Date Activated Date Inactivated Comments 02/16/2022 11:58 AM 02/16/2022 6:22 PM * Full Code Date Activated Date Inactivated Comments 02/16/2022 11:57 AM 02/16/2022 11:58 AM * Full Code Date Activated Date Inactivated Comments 12/24/2018 11:54 AM 12/24/2018 5:39 PM * Full Code Date Activated Date Inactivated Comments 12/24/2018 11:54 AM 12/24/2018 11:54 AM Care Teams Orchard Worker Relationship Specialty [place] [id number] [address] PCP - General Internal Medicine 12/15/22 Leslie Parker MD Loss Control Engineer Obstetrics and Gynecology 07/07/19 Tata Bang MD Surgeon Surgical Oncology 07/07/19 [place] [id number] [address] Referring Physician Endocrinology Diabetes & Metabolism 09/01/19 Messi Goff MD [address] [facility] [place] [address] Consulting Physician Gastroenterology 11/17/21 [place] [id number] [address] Medical Oncologist/Hematologis t Hematology and Oncology 01/17/23
--- OUTSIDE RECORDS SUMMARY | 2025-01-26 14:42 | XMS_ITS | Referral Summary ---
Author Organization [facility] Address [address] [place] [address] Care Team Providers Care Leak Hunter Name Role Phone Leslie Parker MD Unavailable [phone] Tata Bang MD Unavailable [phone] Rima Peraza MD Unavailable [phone] Messi Goff MD Unavailable [phone] Messi Saunders MD Primary Care Provider [phone] Kenny Ansari MD Unavailable [phone] Allergies Active Allergy Reactions Criticality Noted Date [...] (02/13/2022): Added automatically from request for surgery [id number] Screening for colon cancer 02/13/2022 Overview (02/13/2022): Added automatically from request for surgery [id number] Invasive ductal carcinoma of right breast in fem sania 12/18/2019 BMI 29.0-29.9,adult 07/07/2019 History of long-term treatment with high-risk me dication 07/07/2019 Vitamin D deficiency 08/14/2017 History of breast cancer 08/01/2017 Assessment & Plan (11/11/2020 3:12 PM BRASS INSTRUMENT REPAIR TECHNICIAN): Currently taking tamoxifen. Managed by Oncology. Hypothyroidism due to Boris's thyroiditis Assessment & Plan (11/11/2020 3:11 PM BRASS INSTRUMENT REPAIR TECHNICIAN): Stable. Cont. Current meds. Managed by endocrinology. Assessment & Plan (11/07/2019 6:39 PM BRASS INSTRUMENT REPAIR TECHNICIAN): Managed by endocrinology. Gastroesophageal reflux disease 06/15/2014 Overview (01/11/2017): Gastroesophageal reflux disease Assessment & Plan (02/13/2022 2:56 PM CDT): egd Assessment & Plan (11/07/2019 6:40 PM BRASS INSTRUMENT REPAIR TECHNICIAN): Managed by GI. 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 Malignant neoplasm of breast 06/05/2013 Overview (01/12/2017): Breast cancer, right breast Assessment & Plan (11/07/2019 6:40 PM BRASS INSTRUMENT REPAIR TECHNICIAN): Managed by Heme/Onc. Chronic venous insufficiency 05/08/2013 Overview (01/12/2017): Venous insufficiency Carcinoma in situ of breast 05/07/2013 Resolved Problems Problem Noted Date Diagnosed Date Resolved Date Screening for thyroid disorder 11/11/2020 11/11/2020 Biliary dyskinesia 01/10/2019 9 Overview (01/10/2019): Added automatically from request for surgery [id number] Nausea 12/20/2018 11/07/2019 Assessment & Plan (12/20/2018 [...] (12/20/2018): Added automatically from request for surgery [id number] Abdominal pain 12/20/2018 11/07/2019 Overview (12/20/2018): Added automatically from request for surgery [id number] Assessment & Plan (03/10/2019 2:13 PM CDT): All sx resolved with nazario. Have pmd repeat LFTs to be sure of normalizzation and return prn Nausea and vomiting 12/20/2018 11/07/19 20 Overview (12/20/2018): Added automatically from request for surgery [id number] Calculus of gallbladder with out cholecystitis without obstruction 12/13/2018 02/19/2019 Assessment & Plan (12/13/2018 11:13 AM BRASS INSTRUMENT REPAIR TECHNICIAN): Patient main concern is of nausea, unrelated, [...] recap. Assessment & Plan (12/13/2018 11:12 AM BRASS INSTRUMENT REPAIR TECHNICIAN): Slow rise in lft's (ast and alt) [...] Preservative Free, Intramuscular 08/07/2022,07/30/2021,07/11/2020 Influenza, Unspecified 09/11/2023,2019,07/11/2019,08/02 [email or web address] ([employer]) SARS-CoV-2 Vaccination 12/13/2020 Pneumococcal Conjugate Pcv20 09/17/2023 Tdap 11/17/2021 ZOSTER Recombinant 11/18/2023,09/17/2023 Social History Tobacco Use Types Packs/Day Years [...] on file Legal Sex Female 10:29 AM BRASS INSTRUMENT REPAIR TECHNICIAN Gender Identity Female 10/19/2022 10:44 AM BRASS INSTRUMENT REPAIR TECHNICIAN Sexual Orientation Not on file Last Filed Vital Signs Vital Sign Reading Time Taken Comments Blood Pressure 134/82 08/12/2024 9:48 AM BRASS INSTRUMENT REPAIR TECHNICIAN Pulse 76 08/12/2024 9:48 AM BRASS INSTRUMENT REPAIR TECHNICIAN Temperature 36.3 C (97.3 F) 08/12/2024 9:48 AM BRASS INSTRUMENT REPAIR TECHNICIAN Respiratory Rate 18 08/12/2024 9:48 AM BRASS INSTRUMENT REPAIR TECHNICIAN Oxygen Saturation 97% 08/12/2024 9:48 AM BRASS INSTRUMENT REPAIR TECHNICIAN Inhaled Oxygen Concentration - - Weight 61.4 kg (135 lb 5.8 oz) 08/13/2024 10:47 AM BRASS INSTRUMENT REPAIR TECHNICIAN Height 149.9 cm (4' 11.02 ) 08/13/2024 10:47 AM BRASS INSTRUMENT REPAIR TECHNICIAN Body Mass Index 27.33 08/13/2024 10:47 AM BRASS INSTRUMENT REPAIR TECHNICIAN Plan of Treatment Not on file Procedures Procedure Name Priority Date/Time Associated Diagnosis Comments SCREENING MAMMOGRAM BILATERAL W BROCK Schedule Routine, Read Routine (OP Routine) 08/13/2024 11:29 AM BRASS INSTRUMENT REPAIR TECHNICIAN Breast cancer screening, high risk patient COLONOSCOPY 02/16/2022 11:50 AM CDT HEPATITIS C ANTIBODY Routine 11/11/2020 2:33 PM BRASS INSTRUMENT REPAIR TECHNICIAN Encounter for hepatitis C screening test for low risk patient HM PAP SMEAR WITH HPV Routine 11/09/2020 9:41 AM BRASS INSTRUMENT REPAIR TECHNICIAN from Last 3 Months or Most Recently Relevant to Health Maintenance Results * Screening Mammogram Bilateral W Brock (08/13/2024 11:29 AM BRASS INSTRUMENT REPAIR TECHNICIAN) Anatomical Region Laterality Modality Breast Bilateral Mammography Narrative 08/13/2024 2:48 PM BRASS INSTRUMENT REPAIR TECHNICIAN Mammogram Technique: Bilateral Digital Breast Tomosynthesis, Bilateral C-view 2D Screening mammogram. Views obtained: bilateral craniocaudal and bilateral mediolateral oblique. Computer Aided Detection was performed. Mammogram Findings: The present examination has been compared to prior imaging studies performed at [facility] on 06/23/2022, 12/22/2022 and 07/02/2023. There [...] compared to prior imaging studies performed at [facility] on 06/23/2022, 12/22/2022 and 07/02/2023. There are scattered areas of fibroglandular density. There are post breast conservation therapy changes in the right breast. There is no suspicious abnormality in either breast. Impression: There is no mammographic evidence of malignancy. Annual screening mammography is recommended. OVERALL FINAL ASSESSMENT: BI-RADS CATEGORY 2: Benign. us Alise Enriquez NP IMG MAMMO PROCEDURES Final Result * COLONOSCOPY (02/16/2022 11:50 AM CDT) Anatomical Region Laterality Modality Other Narrative Procedure Note Messi Goff MD - 02/16/2022 11:50 AM CDT [facility] Patient Name: Edita Zamora Procedure Date: 02/16/2022 11:50 AM Date of : 1970 Admit Type: Outpatient Age: 51 Gender: Female Attending MD: Messi Goff M.D. Room: [facility] ENDOSCOPY ROOM 2 Note Status: Finalized Patient Profile: [...] scope was passed under direct vision. TheColonoscope [id number] was introduced through the anus and advanced [...] malignant neoplasm of colon CPT copyright 2020 [employer]. All rights reserved. The codes documented in this report are preliminary and upon air transport professionals reviewmay be revised to meet current compliance requirements. Recognized by the [employer] for promoting quality in endoscopy us Messi Goff MD ENDOSCOPY PROCEDURES Final Re sult * Hepatitis C antibody (11/11/2020 2:33 PM BRASS INSTRUMENT REPAIR TECHNICIAN) Hep C Ab Nonreactive Nonreactive [facility] S[facility] ([place]) Comment: Interpretive Data Nonreactive: Antibodies to HCV [...] last revised on 2019. Testing performed by: [facility], [address] [place] [address]., [id number] Blood specimen (specimen) 11/11/2020 2:33 PM BRASS INSTRUMENT REPAIR TECHNICIAN 11/11/2020 6:47 PM BRASS INSTRUMENT REPAIR TECHNICIAN us Sharifa Sin DO LAB MICROBIOLOGY - GENERAL ORDERABLES Final Result KAYLA SORIA ([place]) [address] [facility] [place] [address] * HM PAP SMEAR WITH HPV (11/09/2020 9:41 AM BRASS INSTRUMENT REPAIR TECHNICIAN) Scribed Pap Smear w/HPV Normal 11/09/2020 9:41 AM BRASS INSTRUMENT REPAIR TECHNICIAN us Historical Provider HEALTH MAINTENANCE Final Result from Last 3 Months or Most Recently Relevant to Health Maintenance Insurance [employer] [place] Advance Directives For more information, please contact: [phone] * Full Code (Latest Code Status on File) Date Activated Date Inactivated Comments 02/16/2022 11:58 AM 02/16/2022 6:22 PM * Full Code Date Activated Date Inactivated Comments 02/16/2022 11:57 AM 02/16/2022 11:58 AM * Full Code Date Activated Date Inactivated Comments 12/24/2018 11:54 AM 12/24/2018 5:39 PM * Full Code Date Activated Date Inactivated Comments 12/24/2018 11:54 AM 12/24/2018 11:54 AM Care Teams Leak Hunter Relationship Specialty [place] [id number] [address] PCP - General Internal Medicine 12/15/22 Leslie Parker MD Certified Ophthalmic Medical Technician Obstetrics and Gynecology 07/07/19 Tata Bang MD Surgeon Surgical Oncology 07/07/19 [place] [id number] [address] Referring Physician Endocrinology Diabetes & Metabolism 09/01/19 Messi Goff MD [address] [address] Consulting Physician Gastroenterology 11/17/21 [place] [id number] [address] Medical Oncologist/Hematologis t Hematology and Oncology 01/17/23
--- OUTSIDE RECORDS SUMMARY | 2025-01-26 14:43 | XMS_ITS | Clinical Summary ---
Author Organization [facility] Address [address] [place] [address] Phone Care Team Providers Care Fine Patcher Name Role Phone Unavailable Unavailable Unavailable Reason for Visit and Chief Complaint gynecologic annual exam - The Chief Complaint is: annual Problems Includes: Problems addressed during this encounter and other active Problems All Visits Onset Date Resolved Date Provider Condition S tatus Drug Toxicity Chemotherapeutics 12/04/2013 BEKA LUONG MD Active Last Documented On 4 11:15AM ; [facility] History of Ductal Qqueyaoij-nk-kfeq of the Breast 12/04/2013 BEKA LUONG MD Active Last Documented On 4 11:10AM ; [facility] Note: R Dr. Regine caceres oncologist Irregular Menstrual Bleeding 03/25/2013 BEKA LUONG MD Active Last Documented On 3 9:54AM ; [facility] HEARTBURN 11/17/2011 JEFRY SALAZAR M.D. A ctive Last Documented On 2 10:51AM ; [facility] DISORDER OF THYROID NOS 02/14/2011 JEFRY GARRETT M.D. Active Last Documented On 1 9:08AM ; [facility] Plan of Treatment - Clinical summary provided to patient - Last Documented On 02/10/2016 11:25AM ; [facility] PT TO CALL WITH ANY CHANGE IN STATUS ALL QUESTIONS ANSWERED WITH UNDERSTANDING VERBALIZED BY PT. - Last Documented On 02/10/2016 11:25AM ; [facility] RTC 1 YEAR - Last Documented On 02/10/2016 11:25AM ; [facility] Instructions to patient Instructions for patient : B reast Self Exam discussed Last Documented On 6 11:03AM ; [facility] Instructed to call if excess lindsay bleeding or abdominal/pelvic pain Last Documented On 6 11:12AM ; [facility] Recommend diet and exercise at least 30 min three times per week Last Documented On 6 11:12AM ; [facility] Education and Decision Aids were provided during visit for: Patient Education: Daily beth cium and vitamin D Last Documented On 6 11:12AM ; [facility] Assessments Includes: Assessments from this encounter Findings - Routine pelvic exam - Last Documented On 02/10/2016 11:25AM ; [facility] - NORMAL FEMALE EXAM - Last Documented On 02/10/2016 11:25AM ; [facility] - Screen malignant neoplasm cervix - Last Documented On 02/10/2016 11:25AM ; [facility] Instructions Includes: Instructions from this encounter Instructions to patient Instructions for patient : B reast Self Exam discussed Last Documented On 6 11:03AM ; [facility] Instructed to call if excess lindsay bleeding or abdominal/pelvic pain Last Documented On 6 11:12AM ; [facility] Recommend diet and exercise at least 30 min three times per week Last Documented On 6 11:12AM ; [facility] Education and Decision Aids were provided during visit for: Patient Education: Daily beth cium and vitamin D Last Documented On 6 11:12AM ; [facility] Medical Equipment - Implanted Devices Includes: Current Devices No Medical Equipment Recorded Medications Includes: Medications discussed during this encounter and other current Medications Discontinued / Stopped on this date on 12/11/2014 Rinderer's testosterone cream 0.1% EX CREA Provider: Diagnosis: Last Documented On 02/10/2016 10:57AM By DARWIN YEE CMA ; [facility] Current Medications (continue as prescribed) [facility] Melatonin 10MG Oral Capsule, conventional 02/26/20 18 Provider: Diagnosis: Last Documented On 3:39PM By NATIVIDAD COTA ; [facility] Pepcid 20MG Oral Tablet 02/19/2017 Provider: Diagnosis: Last Documented On 02/19/2017 3:48PM By ELIAS JARQUIN LPN ; [facility] Vitamin D3 1000UNIT Oral Tablet Chewable 7 Provider: Diagnosis: Last Documented On 02/19/2017 3:48PM By ELIAS JARQUIN LPN ; [facility] Vitamin C 1000MG Oral Tablet Chewable 02/19/2017 Provider: Diagnosis: Last Documented On 02/19/2017 3:48PM By ELIAS JARQUIN LPN ; [facility] Tamoxifen Citrate 10 MG OR TABS 12/04/2013 Provider: Diagnosis: Last Documented On 12/04/2013 11:10AM By ALAINA JOSHUA LPN ; [facility] Levothyroxine Sodium 75 MCG OR TABS 11/17/2011 Provi marylu: Diagnosis: Last Documented On 2 11:10AM By DR. JEFRY SALAZAR ; [facility] Past Medications on file Anusol-HC 2.5% RE CREA 11/17/2011 - 03/16/2012 Provide r: JEFRY SALAZAR M.D. Diagnosis: HEMORRHOIDS NOS apply PRN Last Documented On 2 11:15AM By DR. JEFRY SALAZAR ; [facility] LO-LOESTRIN FE 10/17/ MG/MCG MT TABS 11/15/2010 - 03/15/2011 Provider: JEFRY SALAZAR M.D. Diagnosis: OTHER FAMILY TINY NNING ADVICE NEC Last Documented On 1 9:38AM By DR. JEFRY SALAZAR ; [facility] Mircette 0.15-0.02/0.01 MG (25/02) OR TABS 10/22/2008 - 10/17/2009 Provider: Diagnosis: Last Documented On 9 11:44AM By DEENA MALLOY ; [facility] Medications Administered Includes: Administered Medications from this encounter No Administered Medications Recorded Vital Signs Includes: Vital Signs from this encounter Vital Name 02/10/2016 11:00A 02/10/2016 10: 59A Height (in) 59 Blood Pressure Sitting (mmHg) 116/72 Weight (lb) 146 Last Documented: On 02/10/2016 11:00A M ; [facility] On 02/10/2016 11:00AM ; [facility] Results Includes: Results discussed during this encounter No Results Recorded For Specified Dates History of Present Illness Includes: History of Present Illness from this encounter JOS OCONNELL is a 45 year old female. - No unusual bleeding. - No pelvic pain. - No vaginal discharge. Social History Description Last Updated Age of 1st intercourse was was 21 2015 Last Documented On 6 11:25AM ; [facility] Alcohol use: 2 drinks or less per day Last Documented On 6 11:25AM ; [facility] control is being practiced 016 Last Documented On 6 11:25AM ; [facility] Denied sexual activity 02/10/2016 Last Documented On 6 11:25AM ; [facility] Education history 02/10/2016 Last Documented On 6 11:25AM ; [facility] In monogamous relationship 02/10/2016 Last Documented On 6 11:25AM ; [facility] Non-smoker 02/10/2016 Last Documented On 6 11:25AM ; [facility] Not using alcohol 02/10/2016 Last Documented On 6 11:25AM ; [facility] Personal history 02/10/2016 Last Documented On 6 11:25AM ; [facility] Sexually active 02/10/2016 Last Documented On 6 11:25AM ; [facility] Sexually active with 1 partners in the l ast year 02/10/2016 Last Documented On 6 11:25AM ; [facility] Single 02/10/2016 Last Documented On 6 11:25AM ; [facility] Smoking status : Never smoker 02/10/2016 Last Documented On 6 11:25AM ; [facility] Social history unchanged 02/10/2016 Last Documented On 6 11:25AM ; [facility] Alcohol use: 2 drinks or less per day so cially 02/10/2016 Last Documented On 6 11:25AM ; [facility] Procedures and Surgical History Includes: Procedures from this encounter Procedures Code Diagnosis Performing Provider Service L ocation Service Date explanation of plan Last Documented On 6 11:12AM ; [facility] junk-free diet including sodas Last Documented On 6 11:12AM ; [facility] Urged Exercise and Diet , exercise at le ast 30 min three times per week Last Documented On 6 11:12AM ; [facility] cervical Pap smear 37162 Last Documented On 6 11:03AM ; [facility] FIT Test-Fecal Occult negative 68943 Last Documented On 6 11:12AM ; [facility] Surgical History Last Updated Surgical / procedural histor y Silverman catheter September 25, 1991 ~Lumpectomy April 21, 2013 ~Powerport placed May 19, 2013 12/10/2014 Last Documented On 6 10:50AM ; [facility] Medical History Includes: Medical History addressed during this encounter Description Last Updated hx of breast CA 02/10/2016 Last Documented On 6 11:25AM ; [facility] Leukemia AML ~Silverman Catheter 6 Last Documented On 6 11:25AM ; [facility] 2 living children 02/10/2016 Last Documented On 6 11:25AM ; [facility] A breast self-exam was performed 016 Last Documented On 6 11:25AM ; [facility] A colonoscopy was performed 07/17/2011 0 02/10/2016 Last Documented On 6 11:25AM ; [facility] Condoms 02/10/2016 Last Documented On 6 11:25AM ; [facility] Contraception: 02/10/2016 Last Documented On 6 11:25AM ; [facility] 2 02/10/2016 Last Documented On 6 11:25AM ; [facility] History of chronic reflux esophagitis Last Documented On 6 11:25AM ; [facility] History of hyperthyroidism 02/10/2016 Last Documented On 6 11:25AM ; [facility] History of leukemia 02/10/2016 Last Documented On 6 11:25AM ; [facility] History of thyroid disorder 02/10/2016 Last Documented On 6 11:25AM ; [facility] Last mammogram date: 03/28/2013 6 Last Documented On 6 11:25AM ; [facility] Last pap smear date 11/26/2012 02/10/2016 Last Documented On 6 11:25AM ; [facility] LMP: 04/21/2013 02/10/2016 Last Documented On 6 11:25AM ; [facility] No recent change in medical history 02/2016 Last Documented On 6 11:25AM ; [facility] Oral contraceptives 02/10/2016 Last Documented On 6 11:25AM ; [facility] Para 2 02/10/2016 Last Documented On 6 11:25AM ; [facility] Result: abnormal ascus. neg hr hpv 02/09 Last Documented On 6 11:25AM ; [facility] Result: abnormal Bx performed, Ductal Ca rcinoma of R breast 02/10/2016 Last Documented On 6 11:25AM ; [facility] Result: normal 02/10/2016 Last Documented On 6 11:25AM ; [facility] Result: normal 02/10/2016 Last Documented On 6 11:25AM ; [facility] Vaginal delivery 02/10/2016 Last Documented On 6 11:25AM ; [facility] Contraception: none 02/10/2016 Last Documented On 6 11:25AM ; [facility] Last mammogram date: 02/01/2016 6 Last Documented On 6 11:25AM ; [facility] LMP: 201202/10/2016 Last Documented On 6 11:25AM ; [facility] Patient recently had a dexa scan couple of years ago 02/10/2016 Last Documented On 6 11:25AM ; [facility] Result: abnormal ASC-US 02/10/2016 Last Documented On 6 11:25AM ; [facility] Family History Includes: Family History addressed during this encounter Description Last Updated Family history of malignant female breast neoplasm pt had breast cancer April 2013 02/10/2016 Last Documented On 6 11:25AM ; [facility] Review of Systems Includes: Review of Systems from this encounter Systemic: Feeling fine and not tiring easily. No fever, no chills, no unusual bleeding, and no recent weight change. Head: No headache. Neck: No neck pain and no swollen glands in the neck. Eyes: No vision problems. Otolaryngeal: No hoarseness. Breasts: No breast lump, no pain in breast, and patient performs self breast exams. Cardiovascular: No chest pain or discomfort, no palpitations, no intermittent leg claudication, and no varicosities. Pulmonary: No pulmonary symptoms, no dyspnea, and not expressed as feeling short of breath. Gastrointestinal: Normal appetite, no heartburn, and no indigestion. No nausea, no vomiting, no abdominal pain, no melena, and no hematochezia. No diarrhea and no constipation. Genitourinary: No change in urinary frequency and no nocturia. No incomplete emptying of bladder. No urinary loss of control and no dysuria. No genital lesion, no pain during intercourse, and no vaginal dryness. No vaginal discharge. Endocrine: No polydipsia, no hot flashes, and libido has not changed. Hematologic: No blood clotting problems. Musculoskeletal: No back pain, no muscle aches, no arthralgias, no localized joint pain, and no localized joint swelling. Neurological: No dizziness, no tingling, and no numbness. Psychological: No anxiety, no depression, no sleep disturbances, and a desire to continue living. Skin: No pruritus. No skin lesions and no rash. Allergic and Immunologic: No hay fever. Mental Status Includes: Mental Status from this encounter Description Oriented to time, place, and person No anxiety A desire to continue living Functional Status Includes: Functional Status from this encounter No Functional Status Recorded Physical Exam Includes: Physical Exam from this encounter Allergies Includes: Active Allergies Substance Type Reaction Onset Date Resolved Date Statu s Zithromax Allergy 12/04/2013 Active Last Documented On 8 3:39PM ; [facility] Levaquin Allergy 12/04/2013 Active Last Documented On 8 3:39PM ; [facility] Codeine Allergy 10/04/2009 Active Last Documented On 8 3:39PM ; [facility] Encounters Encounter Provider Location Date Check-In Time Check-Out Time Diagnosis RETORT OR CONDENSER PRESS OPERATOR EXAM GISEL MORFIN RN YUSEF [facility] THERAPEUTIC SUPPORT STAFF 6 10:49AM 11:25AM Routine Pelvic Exam,Normal Female Exam,Screen Malignant Neoplasm Cervix Clinical Notes Includes: Clinical Notes from this encounter No Clinical Notes Recorded
--- OUTSIDE RECORDS SUMMARY | 2025-01-26 14:43 | XMS_ITS | Encounter Summary ---
Author Organization [facility] Address [address] [place] [address] Care Team Providers Care Screedman/Laborer Name Role Phone Leslie Parker MD Unavailable [phone] Rima Peraza MD Unavailable Tata Bang MD Unavailable [phone] Messi Goff MD Unavailable Messi Saunders MD Primary Care Provider [phone] Encounter Details Date Type Department Care Team (Late st Contact Info) Description 03/13/2022 [facility] Outpatient Visit Infusion Services at [facility] [id number] [place] [address] [address] [place] [address] [place] [address] [facility] [address] [place] [address] Social History Tobacco Use Types Packs/Day Years Used Date Smoking Tobacco: Never Smokeless Tobacco: Never Alcohol Use Standard Drinks/Week Comments No 0 (1 standard drink = 0.6 oz pur e alcohol) Comments No Sex and Gender Information Value Date Recorded Sex Assigned at Female 12/19/2022 6:12 AM CDT Legal Sex Female 1:26 PM STORM CHASER Gender Identity Female 12/19/2022 6:12 AM CDT Sexual Orientation Choose not to disclose 2022 6:12 AM CDT documented as of this encounter Plan of Treatment Upcoming Encounters Date Type Department Care Team (Late st Contact Info) Description 08/27/2025 10:00 AM STORM CHASER Office Visit [facility] - Endocrinology [address] [facility], [address] [address] [place] [address] [address] documented as of this encounter Visit Diagnoses Not on filedocumented in this encounter Care Teams Screedman/Laborer Relationship Specialty [place] [address] [id number] PCP - General Internal Medicine 09/10/24 Leslie Parker MD Obstetrics and Gynecology 01/15/14 R[place] [id number] [place] [address] Endocrinology 01/25/15 [place] [address] [address] Surgical Oncology 07/27/16 [place]i Goff [place] [address] [place] [address] Gastroenterology 08/28/19 documented as of this encounter
--- OUTSIDE RECORDS SUMMARY | 2025-01-26 14:43 | XMS_ITS | Encounter Summary ---
Author Organization [facility] Address [address] [place] [address] Care Team Providers Care Soil Fertility Specialist Name Role Phone Sharfia Sin Primary Care Provider [phone] Leslie Parker MD Unavailable [phone] Tata Bang MD Unavailable Rima Peraza MD Unavailable Gael Yanes MD Unavailable [phone] Kenny Ansari MD Unavailable [phone] Messi Goff MD Unavailable [phone] Messi Saunders MD Primary Care Provider [phone] Kenny Ansari MD Unavailable [phone] Encounter Details Date Type Department Care Team (Late st Contact Info) Description 06/30/2019 Documentation [facility] Physicians [address] [address] [place] [address] Lary Gant MD [facility] [address] [place] [address] Social History Tobacco Use Types Packs/Day Years Used Date Smoking Tobacco: Never Smokeless Tobacco: Never Alcohol Use Standard Drinks/Week Comments Not Currently 0 (1 standard drink = 0.6 oz pur e alcohol) rarely PHQ-2 Answer Date Recorded PHQ-2 Score 0 05/28/2019 Comments No Sex and Gender Information Value Date Recorded Sex Assigned at Not on file Legal Sex Female 10:29 AM SECURITY ANALYST Gender Identity Female 10/19/2022 10:44 AM SECURITY ANALYST Sexual Orientation Not on file documented as of this encounter Plan of Treatment Not on file documented as of this encounter Visit Diagnoses Not on filedocumented in this encounter Additional Health Concerns Infection Onset Date Last Indicated Resolved Time COVID: Suspected 05/20/2020 05/21/2020 05/21/2020 7:36 PM CDT Respiratory Infection (SARAH), contact + droplet Comment:Automatically added due to negative COVID-19 result. 05/21/2020 05/21/2020 06/04/2020 3:0 7 AM CDT COVID: Suspected 10/02/2023 10/02/2023 10/02/2023 8:50 AM SECURITY ANALYST COVID: Suspected 07/15/2024 07/15/2024 07/15/2024 10:38 AM CDT documented as of this encounter Care Teams Soil Fertility Specialist Relationship Specialty Start Date End Date Merrick Sharifa DO Herminio PCP - General 05/27/19 12/14/22 [place] [address] [address] PCP - General Internal Medicine 12/15/22 Leslie Parker MD Nozzle Tender Obstetrics and Gynecology 07/07/19 Tata Bang MD Surgeon Surgical Oncology 07/07/19 [place] [address] [address] Referring Physician Endocrinology Diabetes & Metabolism 09/01/19 [place] [address] [place] [address] Consulting Physician Medical Oncology 11/07/19 02/09/20 [place] [address] [address] [place] [address] Medical Oncologist/Hematologis t Hematology and Oncology 02/10/20 01/16/23 Messi Goff MD [address] [place] [address] Consulting Physician Gastroenterology 11/17/21 [place] [address] [address] Medical Oncologist/Hematologis t Hematology and Oncology 01/17/23 documented as of this encounter
--- OUTSIDE RECORDS SUMMARY | 2025-01-26 14:43 | XMS_ITS | Clinical Summary ---
Author Organization [facility] Address [address] [place] [address] Phone Care Team Providers Care Small Kick Press Operator Name Role Phone Unavailable Unavailable Unavailable Reason for Visit and Chief Complaint The Chief Complaint is: Annual exam Problems Includes: Problems addressed during this encounter and other active Problems All Visits Onset Date Resolved Date Provider Condition S tatus Drug Toxicity Chemotherapeutics 12/04/2013 BEKA LUONG MD Active Last Documented On 4 11:15AM ; [facility] History of Ductal Xwfrtohhi-ve-jdza of the Breast 12/04/2013 BEKA LUONG MD Active Last Documented On 4 11:10AM ; [facility] Note: R breastDr. Weiner oncologist Irregular Menstrual Bleeding 03/25/2013 BEKA LUONG MD Active Last Documented On 3 9:54AM ; [facility] HEARTBURN 11/17/2011 JEFRY SALAZAR M.D. A ctive Last Documented On 2 10:51AM ; [facility] DISORDER OF THYROID NOS 02/14/2011 JEFRY GARRETT M.D. Active Last Documented On 1 9:08AM ; [facility] Plan of Treatment She is 5 years out from breast cancer and now has been recommended to take Tamoxifen for a total of 10 years - Last Documented On 02/25/2018 4:05PM ; [facility] Instructions to patient Instructions for patient : B reast Self Exam discussed Last Documented On 8 4:03PM ; [facility] Education and Decision Aids were provided during visit for: Patient education : Last Documented On 8 4:03PM ; [facility] STD screening offered and de clined Last Documented On 8 4:03PM ; [facility] Assessments Includes: Assessments from this encounter Findings - Routine pelvic exam - Last Documented On 02/25/2018 4:05PM ; [facility] Instructions Includes: Instructions from this encounter Instructions to patient Instructions for patient : B reast Self Exam discussed Last Documented On 8 4:03PM ; [facility] Education and Decision Aids were provided during visit for: Patient education : Last Documented On 8 4:03PM ; [facility] STD screening offered and de clined Last Documented On 8 4:03PM ; [facility] Medical Equipment - Implanted Devices Includes: Current Devices No Medical Equipment Recorded Medications Includes: Medications discussed during this encounter and other current Medications Current Medications (continue as prescribed) [facility] Melatonin 10MG Oral Capsule, conventional 02/26/20 18 Provider: Diagnosis: Last Documented On 8 3:39PM By NATIVIDAD COTA ; [facility] Pepcid 20MG Oral Tablet 02/19/2017 Provider: Diagnosis: Last Documented On 02/19/2017 3:48PM By ELIAS JARQUIN LPN ; [facility] Vitamin D3 1000UNIT Oral Tablet Chewable 7 Provider: Diagnosis: Last Documented On 02/19/2017 3:48PM By ELIAS JARQUIN LPN ; [facility] Vitamin C 1000MG Oral Tablet Chewable 02/19/2017 Provider: Diagnosis: Last Documented On 02/19/2017 3:48PM By ELIAS JARQUIN LPN ; [facility] Tamoxifen Citrate 10 MG OR TABS 12/04/2013 Provider: Diagnosis: Last Documented On 12/04/2013 11:10AM By ALAINA JOSHUA LPN ; [facility] Levothyroxine Sodium 75 MCG OR TABS 11/17/2011 Provi marylu: Diagnosis: Last Documented On 2 11:10AM By DR. JEFRY SALAZAR ; [facility] Past Medications on file Anusol-HC 2.5% RE CREA 11/17/2011 - 03/16/2012 Provide r: JEFRY SALAZAR M.D. Diagnosis: HEMORRHOIDS NOS apply PRN Last Documented On 2 11:15AM By DR. JEFRY SALAZAR ; [facility] LO-LOESTRIN FE 10/17/09 MG/MCG MT TABS 11/15/2010 - 03/15/2011 Provider: JEFRY SALAZAR M.D. Diagnosis: OTHER FAMILY TINY NNING ADVICE NEC Last Documented On 1 9:38AM By DR. JEFRY SALAZAR ; [facility] Mircette 0.15-0.02/0.01 MG (25/02) OR TABS 10/22/2008 - 10/17/2009 Provider: Diagnosis: Last Documented On 9 11:44AM By DEENA MALLOY ; [facility] Medications Administered Includes: Administered Medications from this encounter No Administered Medications Recorded Vital Signs Includes: Vital Signs from this encounter Vital Name 02/25/2018 03:35P Blood Pressure Sitting (mmHg) 104/76 Height (in) 58 Weight (lb) 139 Body Mass Index (kg/m2) 29.1 Body Surface Area (m2) 1.6 Last Documented: On 02/25/2018 3:40PM ; [facility] Results Includes: Results discussed during this encounter No Results Recorded For Specified Dates History of Present Illness Includes: History of Present Illness from this encounter JOS ZAMORA is a 47 year old female. - Medication list reviewed. - No unusual bleeding. - No pelvic pain. - No vaginal discharge. She has a new partner, and they're living together. She's 39, has no kids, and doesn't want to have kids. She is currently in [facility] with a brain aneurysm Social History Description Last Updated In monogamous relationship 02/25/2018 Last Documented On 8 4:05PM ; [facility] Alcohol use: 2 drinks or less per day ve ry little 02/25/2018 Last Documented On 8 4:05PM ; [facility] Non-smoker 02/25/2018 Last Documented On 8 4:05PM ; [facility] Not sexually active 02/25/2018 Last Documented On 8 4:05PM ; [facility] Smoking status : Never smoker 02/25/2018 Last Documented On 8 4:05PM ; [facility] Procedures and Surgical History Includes: Procedures from this encounter Procedures Code Diagnosis Performing Provider Service L ocation Service Date Clinical summary provided to patient Last Documented On 8 4:03PM ; [facility] cervical Pap smear 25781 Last Documented On 8 4:03PM ; [facility] Medical History Includes: Medical History addressed during this encounter Description Last Updated A colonoscopy was performed 2011 018 Last Documented On 8 4:05PM ; [facility] Contraception: none 02/25/2018 Last Documented On 8 4:05PM ; [facility] Last mammogram date: 02/201702/25/2018 Last Documented On 8 4:05PM ; [facility] Patient recently had a dexa scan none Last Documented On 8 4:05PM ; [facility] Result: normal [facility] 02/06 Last Documented On 8 4:05PM ; [facility] 2 02/25/2018 Last Documented On 8 4:05PM ; [facility] Last pap smear date 02/10/2016 02/25/2018 Last Documented On 8 4:05PM ; [facility] LMP: 201202/25/2018 Last Documented On 8 4:05PM ; [facility] Para 2 02/25/2018 Last Documented On 8 4:05PM ; [facility] Family History Includes: Family History addressed during this encounter Description Last Updated Family history of malignant female breast neoplasm pt had breast cancer April 2013 02/10/2016 Last Documented On 8 3:34PM ; [facility] no family hx of breast CA ~DM--mother an d PGM 12/10/2014 Last Documented On 8 3:34PM ; [facility] Family history unchanged 12/10/2014 Last Documented On 8 3:34PM ; [facility] No family history of malignant neoplasm of the large intestine 12/10/2014 Last Documented On 8 3:34PM ; [facility] No family history of malignant neoplasm of the ovary 12/10/2014 Last Documented On 8 3:34PM ; [facility] Family history of diabetes m ellitus mother, maternal grandmother and paternal grandmother 03/25/2013 Last Documented On 8 3:34PM ; [facility] No family history of hypercholesterolemi a 11/15/2010 Last Documented On 8 3:34PM ; [facility] No family history of hypertension 2010 Last Documented On 8 3:34PM ; [facility] No family history of uterine cancer 05/2011 Last Documented On 8 3:34PM ; [facility] No heart disease 11/15/2010 Last Documented On 8 3:34PM ; [facility] Family history of Diabetes 10/04/2009 Last Documented On 8 3:34PM ; [facility] Family medical history of high blood pre ssure ~Hyperlipidemia 10/04/2009 Last Documented On 8 3:34PM ; [facility] Review of Systems Includes: Review of Systems from this encounter Systemic: No recent weight change. Head: No headache. Eyes: No vision problems. Otolaryngeal: No hoarseness. Cardiovascular: No chest pain or discomfort and no palpitations. Pulmonary: No shortness of breath. Gastrointestinal: Normal appetite. No nausea, no vomiting, and no hematochezia. No diarrhea and no constipation. Genitourinary: No nocturia. No urinary loss of control and no dysuria. Musculoskeletal: No arthralgias and no localized joint swelling. Neurological: No tingling and no numbness. Psychological: No anxiety, no depression, and no sleep disturbances. Mental Status Includes: Mental Status from this encounter Description No anxiety Functional Status Includes: Functional Status from this encounter No Functional Status Recorded Physical Exam Includes: Physical Exam from this encounter Allergies Includes: Active Allergies Substance Type Reaction Onset Date Resolved Date Statu s Zithromax Allergy 12/04/2013 Active Last Documented On 8 3:39PM ; [facility] Levaquin Allergy 12/04/2013 Active Last Documented On 8 3:39PM ; [facility] Codeine Allergy 10/04/2009 Active Last Documented On 8 3:39PM ; [facility] Encounters Encounter Provider Location Date Check-In Time Check-Out Time Diagnosis LICENSED CERTIFIED ORTHOTIST EXAM BEKA LUONG MD [facility] ARCHITECTURAL EXAMINER 8 3:33PM 4:08PM Routine Pelvic Exam Clinical Notes Includes: Clinical Notes from this encounter No Clinical Notes Recorded
--- OUTSIDE RECORDS SUMMARY | 2025-01-26 14:43 | XMS_ITS ---
Author Organization [facility] Address [address] [place] [address] Phone Care Team Providers Care Rag Washer Name Role Phone Unavailable Unavailable Unavailable Problems Includes: Active, inactive, and resolved Problems All Visits Onset Date Resolved Date Provider Condition S tatus Drug Toxicity Chemotherapeutics 12/04/2013 BEKA LUONG MD Active Last Documented On 4 11:15AM ; [facility] History of Ductal Icnbdrepr-ay-wgto of the Breast 12/04/2013 BEKA LUONG MD Active Last Documented On 4 11:10AM ; [facility] Note: R Dr. Regine caceres oncologist Irregular Menstrual Bleeding 03/25/2013 BEKA LUONG MD Active Last Documented On 3 9:54AM ; [facility] HEARTBURN 11/17/2011 JEFRY SALAZAR M.D. A ctive Last Documented On 2 10:51AM ; [facility] DISORDER OF THYROID NOS 02/14/2011 JEFRY GARRETT M.D. Active Last Documented On 1 9:08AM ; [facility] Plan of Treatment Findings Encounter Date Ordered Clinical summary pro vided to patient SECURITY SYSTEM INSTALLER EXAM with GISEL MORFIN RN [facility] 02/10/2016 Last Documented On 6 11:25AM ; [facility] Ordered a mammogram CONSULTATION with BEKA PALMA MD 03/25/2013 Last Documented On 3 10:32AM ; [facility] Ordered follow-up visit in 1 year or as needed MED CHECK with JEFRY SALAZAR M.D. 02/14/2011 Last Documented On 1 9:41AM ; [facility] Referrals To Diagnosis General Surgery ASHLEY ROSAS MD - [facility] - [address] [place] [phone] - [place] IN SITU BREAST Note: Pt has R ductal carcin sandra in situ. Please set up appt directly with her. She has no scheduling restrictions. Last Documented On 3 4:07PM ; [facility] Instructions to patient Instructions for patient : B reast Self Exam discussed Last Documented On 8 4:03PM ; [facility] Instructions for patient : B reast Self Exam discussed Last Documented On 7 3:51PM ; [facility] Instructions for patient : B reast Self Exam discussed Last Documented On 6 11:03AM ; [facility] Instructed to call if excess lindsay bleeding or abdominal/pelvic pain Last Documented On 6 11:12AM ; [facility] Recommend diet and exercise at least 30 min three times per week Last Documented On 6 11:12AM ; [facility] Instructions for patient : B reast Self Exam discussed Last Documented On 5 8:48AM ; [facility] Instructions for patient : B reast Self Exam discussed Last Documented On 4 11:17AM ; [facility] Instructions for patient : b reast self exam. Patient to come in for appointment if lump or other changes are felt Last Documented On 3 10:31AM ; [facility] Instructions for patient : B reast Self Exam discussed Last Documented On 3 3:16PM ; [facility] Instructions for patient : B reast Self Exam discussed. Reviewed monthly self breast examination and technique Last Documented On 2 11:08AM ; [facility] Recommend diet and exercise at least 30 min three times per week Last Documented On 2 11:08AM ; [facility] Discussed Gardasil vaccinati on and recommend vaccination for HPV prevention. Handout given. Patient understands sexual transmission of high-risk HPV and the association with abnormal pap smear and cervical cancer. Recommend to decrease high risk behaviors such as: number of sexual partners, smoking and contraception use Last Documented On 2 11:08AM ; [facility] Recommend preventative vacci nation including but not limited to influenza/flu vaccine, DTP, Rubella, Hepatitis B vaccination series Last Documented On 2 11:08AM ; [facility] Recommend annual pap smear e xamination or every three year if high risk hpv negative and 3 consecutive normal pap examination during preceding three years Last Documented On 2 11:08AM ; [facility] Recommend TSH, fasting gluco se, fasting lipid panel, CBC, BMP Last Documented On 2 11:08AM ; [facility] Recommend Calcium supplement ation and weight bearing exercise Last Documented On 2 11:08AM ; [facility] Instructions for patient : B reast Self Exam discussed and technique reviewed Last Documented On 1 9:26AM ; [facility] If patient is taking francine. Re commend annual K level. Pt understands risk of hyperkalemia and that if diagnosis of liver or kidney disease that the continuation of francine is not recommended Last Documented On 1 9:26AM ; [facility] Recommend diet and exercise at least 30 min three times per week Last Documented On 1 9:26AM ; [facility] Recommend CBC, TSH, fasting glucose, fasting lipid panel if patient aged 25 or older Last Documented On 1 9:26AM ; [facility] Discussed Gardasil vaccinati on and recommend vaccination for HPV prevention. Handout given. Patient understands sexual transmission of high-risk HPV and the association with abnormal pap smear and cervical cancer. Recommend to decrease high risk behaviors such as: number or sexual partners, smoking, and contraception use Last Documented On 1 9:26AM ; [facility] Recommend preventative vacci nation including but not limited to influenza/flu vaccine, DTP, Rubella, Hepatitis B vaccination series Last Documented On 1 9:26AM ; [facility] Education and Decision Aids were provided during visit for: Patient education : Last Documented On 8 4:03PM ; [facility] STD screening offered and de clined Last Documented On 8 4:03PM ; [facility] Patient education : Last Documented On 7 3:51PM ; [facility] STD screening offered and de clined Last Documented On 7 3:51PM ; [facility] Patient Education: Daily beth cium and vitamin D Last Documented On 6 11:12AM ; [facility] Patient education : Last Documented On 5 8:48AM ; [facility] STD screening offered and de clined Last Documented On 5 8:48AM ; [facility] Patient education : Last Documented On 4 11:17AM ; [facility] STD screening offered and de clined Last Documented On 4 11:17AM ; [facility] Patient education : Last Documented On 3 3:16PM ; [facility] STD screening offered and de clined Last Documented On 3 3:16PM ; [facility] Assessments Includes: Assessments for all patient encounters Findings Encounter Date Routine pelvic exam SECURITY SYSTEM INSTALLER EXAM with BEKA LUONG MD 02/25/2018 Last Documented On 8 4:05PM ; [facility] Routine pelvic exam SECURITY SYSTEM INSTALLER EXAM with BEKA LUONG MD 02/19/2017 Last Documented On 7 4:11PM ; [facility] NORMAL FEMALE EXAM SECURITY SYSTEM INSTALLER EXAM with GISEL Chi YUSEF 02/10/2016 Last Documented On 6 11:25AM ; [facility] Routine pelvic exam SECURITY SYSTEM INSTALLER EXAM with GISEL MOFRIN RN [facility] 02/10/2016 Last Documented On 6 11:25AM ; [facility] Screen malignant neoplasm cervix SECURITY SYSTEM INSTALLER EXAM with Sugey MORFIN RN [facility] 02/10/2016 Last Documented On 6 11:25AM ; [facility] Routine pelvic exam SECURITY SYSTEM INSTALLER EXAM with BEKA LUONG MD 12/10/2014 Last Documented On 5 9:12AM ; [facility] Symptomatic menopause SECURITY SYSTEM INSTALLER EXAM with BEKA Chi MD 12/10/2014 Last Documented On 5 9:12AM ; [facility] Routine pelvic exam SECURITY SYSTEM INSTALLER EXAM with BEKA LUONG MD 12/04/2013 Last Documented On 4 11:42AM ; [facility] Lump or mass in breast CONSULTATION with BKEA LUONG MD 03/25/2013 Last Documented On 3 10:32AM ; [facility] Lump or mass in the right breast CONSULTATION wi th BEKA LUONG MD 03/25/2013 Last Documented On 3 10:32AM ; [facility] Menometrorrhagia CONSULTATION with BEKA LUONG MD 03/25/2013 Last Documented On 3 10:32AM ; [facility] Routine pelvic exam NEW SECURITY SYSTEM INSTALLER EXAM with BEKA PALMA MD 11/26/2012 Last Documented On 3 3:37PM ; [facility] MAMMOGRAM SCREENING SECURITY SYSTEM INSTALLER EXAM with JEFRY APONTE M.D. 11/17/2011 Last Documented On 2 11:30AM ; [facility] NORMAL FEMALE EXAM SECURITY SYSTEM INSTALLER EXAM with JEFRY QUINTANA M.D. 11/17/2011 Last Documented On 2 11:30AM ; [facility] Contraceptive surveillance MED CHECK with SANDRA SALAZAR M.D. 02/14/2011 Last Documented On 1 9:41AM ; [facility] Contraceptive management SECURITY SYSTEM INSTALLER EXAM with JEFRY SALAZAR M.D. 11/15/2010 Last Documented On 1 9:39AM ; [facility] NORMAL FEMALE EXAM SECURITY SYSTEM INSTALLER EXAM with JEFRY QUINTANA M.D. 11/15/2010 Last Documented On 1 9:39AM ; [facility] Instructions Includes: Instructions for all patient encounters Instructions to patient Instructions for patient : B reast Self Exam discussed Last Documented On 8 4:03PM ; [facility] Instructions for patient : B reast Self Exam discussed Last Documented On 7 3:51PM ; [facility] Instructions for patient : B reast Self Exam discussed Last Documented On 6 11:03AM ; [facility] Instructed to call if excess lindsay bleeding or abdominal/pelvic pain Last Documented On 6 11:12AM ; [facility] Recommend diet and exercise at least 30 min three times per week Last Documented On 6 11:12AM ; [facility] Instructions for patient : B reast Self Exam discussed Last Documented On 5 8:48AM ; [facility] Instructions for patient : B reast Self Exam discussed Last Documented On 4 11:17AM ; [facility] Instructions for patient : b reast self exam. Patient to come in for appointment if lump or other changes are felt Last Documented On 3 10:31AM ; [facility] Instructions for patient : B reast Self Exam discussed Last Documented On 3 3:16PM ; [facility] Instructions for patient : B reast Self Exam discussed. Reviewed monthly self breast examination and technique Last Documented On 2 11:08AM ; [facility] Recommend diet and exercise at least 30 min three times per week Last Documented On 2 11:08AM ; [facility] Discussed Gardasil vaccinati on and recommend vaccination for HPV prevention. Handout given. Patient understands sexual transmission of high-risk HPV and the association with abnormal pap smear and cervical cancer. Recommend to decrease high risk behaviors such as: number of sexual partners, smoking and contraception use Last Documented On 2 11:08AM ; [facility] Recommend preventative vacci nation including but not limited to influenza/flu vaccine, DTP, Rubella, Hepatitis B vaccination series Last Documented On 2 11:08AM ; [facility] Recommend annual pap smear e xamination or every three year if high risk hpv negative and 3 consecutive normal pap examination during preceding three years Last Documented On 2 11:08AM ; [facility] Recommend TSH, fasting gluco se, fasting lipid panel, CBC, BMP Last Documented On 2 11:08AM ; [facility] Recommend Calcium supplement ation and weight bearing exercise Last Documented On 2 11:08AM ; [facility] Instructions for patient : B reast Self Exam discussed and technique reviewed Last Documented On 1 9:26AM ; [facility] If patient is taking francine. Re commend annual K level. Pt understands risk of hyperkalemia and that if diagnosis of liver or kidney disease that the continuation of francine is not recommended Last Documented On 1 9:26AM ; [facility] Recommend diet and exercise at least 30 min three times per week Last Documented On 1 9:26AM ; [facility] Recommend CBC, TSH, fasting glucose, fasting lipid panel if patient aged 25 or older Last Documented On 1 9:26AM ; [facility] Discussed Gardasil vaccinati on and recommend vaccination for HPV prevention. Handout given. Patient understands sexual transmission of high-risk HPV and the association with abnormal pap smear and cervical cancer. Recommend to decrease high risk behaviors such as: number or sexual partners, smoking, and contraception use Last Documented On 1 9:26AM ; [facility] Recommend preventative vacci nation including but not limited to influenza/flu vaccine, DTP, Rubella, Hepatitis B vaccination series Last Documented On 1 9:26AM ; [facility] Education and Decision Aids were provided during visit for: Patient education : Last Documented On 8 4:03PM ; [facility] STD screening offered and de clined Last Documented On 8 4:03PM ; [facility] Patient education : Last Documented On 7 3:51PM ; [facility] STD screening offered and de clined Last Documented On 7 3:51PM ; [facility] Patient Education: Daily beth cium and vitamin D Last Documented On 6 11:12AM ; [facility] Patient education : Last Documented On 5 8:48AM ; [facility] STD screening offered and de clined Last Documented On 5 8:48AM ; [facility] Patient education : Last Documented On 4 11:17AM ; [facility] STD screening offered and de clined Last Documented On 4 11:17AM ; [facility] Patient education : Last Documented On 3 3:16PM ; [facility] STD screening offered and de clined Last Documented On 3 3:16PM ; [facility] Medical Equipment - Implanted Devices Includes: Current and historical Devices No Medical Equipment Recorded Medications Includes: Current and historical Medications Current Medications (continue as prescribed) [facility] Melatonin 10MG Oral Capsule, conventional 02/26/20 18 Provider: Diagnosis: Last Documented On 8 3:39PM By NATIVIDAD COTA ; [facility] Pepcid 20MG Oral Tablet 02/19/2017 Provider: Diagnosis: Last Documented On 02/19/2017 3:48PM By ELIAS JARQUIN LPN ; [facility] Vitamin D3 1000UNIT Oral Tablet Chewable 7 Provider: Diagnosis: Last Documented On 02/19/2017 3:48PM By ELIAS JARQUIN LPN ; [facility] Vitamin C 1000MG Oral Tablet Chewable 02/19/2017 Provider: Diagnosis: Last Documented On 02/19/2017 3:48PM By ELIAS JARQUIN LPN ; [facility] Tamoxifen Citrate 10 MG OR TABS 12/04/2013 Provider: Diagnosis: Last Documented On 12/04/2013 11:10AM By ALAINA JOSHUA LPN ; [facility] Levothyroxine Sodium 75 MCG OR TABS 11/17/2011 Provi marylu: Diagnosis: Last Documented On 2 11:10AM By DR. JEFRY SALAZAR ; [facility] Past Medications on file Mirtazapine 30 MG Tablet 02/10/2016 - 02/19/2017 Provi marylu: Diagnosis: Last Documented On 02/19/2017 3:47PM By ELIAS JARQUIN LPN ; [facility] Rinderer's testosterone cream 0.1% EX CREA 12/11/2014 - 02/10/2016 Provider: Diagnosis: Last Documented On 02/10/2016 10:57AM By DARWIN YEE CMA ; [facility] Ondansetron 8 MG OR TBDP 12/04/2013 - 12/10/2014 Provi marylu: Diagnosis: PRN Last Documented On 5 8:45AM By JOIE JAMIL LPN ; [facility] traMADol HCl 50 MG OR TABS 12/04/2013 - 12/10/2014 Pro vider: Diagnosis: PRN Last Documented On 5 8:45AM By JOIE JAMIL LPN ; [facility] oxyCODONE-Acetaminophen 5-325 MG OR TABS 12/04/2013 - 12/10/2014 Provider: Diagnosis: PRN Last Documented On 5 8:45AM By JOIE JAMIL LPN ; [facility] DocQLace 100 MG OR CAPS 12/04/2013 - 12/10/2014 Provid er: Diagnosis: PRN Last Documented On 5 8:44AM By JOIE JAMIL LPN ; [facility] dexAMETHasone 4 MG OR TABS 12/04/2013 - 12/04/2013 Pro vider: Diagnosis: one po on day of chemo tx + 2 days Last Documented On 12/04/2013 11:10AM By ALAINA JOSHUA LPN ; [facility] Fluconazole 200 MG OR TABS 12/04/2013 - 12/10/2014 Pro vider: Diagnosis: 1po for 3-7 days Last Documented On 5 8:45AM By JOIE JAMIL LPN ; [facility] Ortho Micronor 0.35 MG OR TABS 04/15/2013 - 12/04/2013 Provider: BEKA LUONG MD Diagnosis: Last Documented On 12/04/2013 11:04AM By COLETTE DUMONT ; [facility] Liothyronine Sodium 5 MCG OR TABS 03/25/2013 - 014 Provider: Diagnosis: Last Documented On 12/04/2013 11:04AM By COLETTE DUMONT ; [facility] Anusol-HC 2.5% RE CREA 11/17/2011 - 03/16/2012 Provide r: JEFRY SALAZAR M.D. Diagnosis: HEMORRHOIDS NOS apply PRN Last Documented On 2 11:15AM By DR. EJFRY SALAZAR ; [facility] Pantoprazole Sodium 40 MG OR TBEC 10/23/2011 - 02/19/2017 Provider: SALEEM DUMONT MD Diagnosis: Last Documented On 02/19/2017 3:47PM By ELIAS JARQUIN LPN ; [facility] LO-LOESTRIN FE 10/17/09 MG/MCG MT TABS 02/14/2011 - 11/17/2011 Provider: JEFRY SALAZAR M.D. Diagnosis: CONTRACEPT SURVE ILL NOS Last Documented On 2 11:10AM By DR. JEFRY SALAZAR ; [facility] LO-LOESTRIN FE 10/17/09 MG/MCG MT TABS 11/15/2010 - 03/15/2011 Provider: JEFRY SALAZAR M.D. Diagnosis: OTHER FAMILY TINY NNING ADVICE NEC Last Documented On 1 9:38AM By DR. JEFRY SALAZAR ; [facility] Levothyroxine 0.06 MCG MT TABS 10/28/2010 - 11/17/2011 Provider: Diagnosis: Last Documented On 2 11:10AM By DR. JEFRY SALAZAR ; [facility] Mircette 0.15-0.02/0.01 MG (25/02) OR TABS 10/22/2008 - 10/17/2009 Provider: Diagnosis: Last Documented On 9 11:44AM By DEENA MALLOY ; [facility] Medications Administered Includes: Administered Medications in patient's chart No Administered Medications Recorded Results Includes: Results from 01/27/2024 through 01/26/2025 No Results Recorded For Specified Dates History of Present Illness History of Present Illness not supported for this document type No History of Present Illness Recorded Social History Description Last Updated In monogamous relationship 02/25/2018 Last Documented On 8 4:05PM ; [facility] Alcohol use: 2 drinks or less per day ve ry little 02/25/2018 Last Documented On 8 4:05PM ; [facility] Non-smoker 02/25/2018 Last Documented On 8 4:05PM ; [facility] Not sexually active 02/25/2018 Last Documented On 8 4:05PM ; [facility] Smoking status : Never smoker 02/25/2018 Last Documented On 8 4:05PM ; [facility] Age of 1st intercourse was was 21 2015 Last Documented On 6 11:25AM ; [facility] control is being practiced 016 Last Documented On 6 11:25AM ; [facility] Denied sexual activity 02/10/2016 Last Documented On 6 11:25AM ; [facility] Education history 02/10/2016 Last Documented On 6 11:25AM ; [facility] Not using alcohol 02/10/2016 Last Documented On 6 11:25AM ; [facility] Personal history 02/10/2016 Last Documented On 6 11:25AM ; [facility] Sexually active with 1 partners in the l ast year 02/10/2016 Last Documented On 6 11:25AM ; [facility] Single 02/10/2016 Last Documented On 6 11:25AM ; [facility] Social history unchanged 02/10/2016 Last Documented On 6 11:25AM ; [facility] Procedures and Surgical History Surgical History Last Updated Surgical / procedural histor y Silverman catheter September 25, 1991 ~Lumpectomy April 21, 2013 ~Powerport placed May 19, 2013 12/10/2014 Last Documented On 5 9:12AM ; [facility] No Bilateral salpingo-oophorectomy 11/15 Last Documented On 1 9:39AM ; [facility] No Breast Biopsy 11/15/2010 Last Documented On 1 9:39AM ; [facility] No Dilation + Curettage 11/15/2010 Last Documented On 1 9:39AM ; [facility] No Ectopic surgery 11/15/2010 Last Documented On 1 9:39AM ; [facility] No Endometrial Ablation 11/15/2010 Last Documented On 1 9:39AM ; [facility] No history of appendectomy 11/15/2010 Last Documented On 1 9:39AM ; [facility] No history of cholecystectomy 11/15/2010 Last Documented On 1 9:39AM ; [facility] No history of Loop electrode excision of cervix (LEEP) 11/15/2010 Last Documented On 1 9:39AM ; [facility] No history of total abdominal hysterecto my 11/15/2010 Last Documented On 1 9:39AM ; [facility] No history of tubal ligation 11/15/2010 Last Documented On 1 9:39AM ; [facility] No history of vaginal hysterectomy 11/15 Last Documented On 1 9:39AM ; [facility] No Laparoscopic Hysterectomy 11/15/2010 Last Documented On 1 9:39AM ; [facility] No Ovarian Cystectomy 11/15/2010 Last Documented On 1 9:39AM ; [facility] No Tonsillectomy 11/15/2010 Last Documented On 1 9:39AM ; [facility] Medical History Includes: Medical History in patient's chart Description Last Updated A colonoscopy was performed 2011 018 Last Documented On 8 4:05PM ; [facility] Contraception: none 02/25/2018 Last Documented On 8 4:05PM ; [facility] Last mammogram date: 02/201702/25/2018 Last Documented On 8 4:05PM ; [facility] [facility] Patient recently had a dexa scan none Last Documented On 8 4:05PM ; [facility] Result: normal [facility] 02/06 Last Documented On 8 4:05PM ; [facility] 2 02/25/2018 Last Documented On 8 4:05PM ; [facility] Last pap smear date 02/10/2016 02/25/2018 Last Documented On 8 4:05PM ; [facility] LMP: 201202/25/2018 Last Documented On 8 4:05PM ; [facility] Para 2 02/25/2018 Last Documented On 8 4:05PM ; [facility] Result: normal 02/19/2017 Last Documented On 7 4:11PM ; [facility] hx of breast CA 02/10/2016 Last Documented On 6 11:25AM ; [facility] Leukemia AML ~Silverman Catheter 6 Last Documented On 6 11:25AM ; [facility] 2 living children 02/10/2016 Last Documented On 6 11:25AM ; [facility] A breast self-exam was performed 016 Last Documented On 6 11:25AM ; [facility] Condoms 02/10/2016 Last Documented On 6 11:25AM ; [facility] History of chronic reflux esophagitis Last Documented On 6 11:25AM ; [facility] History of hyperthyroidism 02/10/2016 Last Documented On 6 11:25AM ; [facility] History of leukemia 02/10/2016 Last Documented On 6 11:25AM ; [facility] History of thyroid disorder 02/10/2016 Last Documented On 6 11:25AM ; [facility] No recent change in medical history 02/2016 Last Documented On 6 11:25AM ; [facility] Oral contraceptives 02/10/2016 Last Documented On 6 11:25AM ; [facility] Result: abnormal ascus. neg hr hpv 02/09 Last Documented On 6 11:25AM ; [facility] Result: abnormal Bx performed, Ductal Ca rcinoma of R breast 02/10/2016 Last Documented On 6 11:25AM ; [facility] Vaginal delivery 02/10/2016 Last Documented On 6 11:25AM ; [facility] Family History Includes: Family History in patient's chart Description Last Updated Family history of malignant female breast neoplasm pt had breast cancer April 2013 02/10/2016 Last Documented On 6 11:25AM ; [facility] no family hx of breast CA ~DM--mother an d PGM 12/10/2014 Last Documented On 5 9:12AM ; [facility] Family history unchanged 12/10/2014 Last Documented On 5 9:12AM ; [facility] No family history of malignant neoplasm of the large intestine 12/10/2014 Last Documented On 5 9:12AM ; [facility] No family history of malignant neoplasm of the ovary 12/10/2014 Last Documented On 5 9:12AM ; [facility] Family history of diabetes m ellitus mother, maternal grandmother and paternal grandmother 03/25/2013 Last Documented On 3 10:32AM ; [facility] No family history of hypercholesterolemi a 11/15/2010 Last Documented On 1 9:39AM ; [facility] No family history of hypertension 2010 Last Documented On 1 9:39AM ; [facility] No family history of uterine cancer 05/2011 Last Documented On 1 9:39AM ; [facility] No heart disease 11/15/2010 Last Documented On 1 9:39AM ; [facility] Family history of Diabetes 10/04/2009 Last Documented On 9 11:48AM ; [facility] Family medical history of high blood pre ssure ~Hyperlipidemia 10/04/2009 Last Documented On 9 11:48AM ; [facility] Review of Systems Review of Systems not supported for this document type No Review of Systems Recorded Mental Status Description No anxiety Functional Status No Functional Status Recorded Physical Exam Physical Exam not supported for this document type No Physical Exam Recorded Immunizations Includes: Immunizations in patient's chart Vaccine Dose # Date Site Reaction(s) Status Source Influenza (Quadrivalent)36 mo.& older PF 0.5ml (SD) 1 Complete (Repor desmond) Patient Last Documented On 2 11:09AM ; [facility] Td 1 Complete (Reported) Susanne ent Last Documented On 1 9:38AM ; [facility] Allergies Includes: Active, inactive, and resolved Allergies Substance Type Reaction Onset Date Resolved Date Statu s Zithromax Allergy 12/04/2013 Active Last Documented On 8 3:39PM ; [facility] Levaquin Allergy 12/04/2013 Active Last Documented On 8 3:39PM ; [facility] Codeine Allergy 10/04/2009 Active Last Documented On 8 3:39PM ; [facility] Clinical Notes Includes: Signed Clinical Notes starting from 10/27/2022 No Clinical Notes Recorded
--- OUTSIDE RECORDS SUMMARY | 2025-01-26 14:43 | XMS_ITS | Clinical Summary ---
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 Weiner oncologist Irregular Menstrual Bleeding 03/25/2013 BEKA LUONG MD Active Last Documented On 3 9:54AM ; [facility] HEARTBURN 11/17/2011 JEFRY SALAZAR M.D. A ctive Last Documented On 2 10:51AM ; [facility] DISORDER OF THYROID NOS 02/14/2011 JEFRY GARRETT M.D. Active Last Documented On 1 9:08AM ; [facility] Plan of Treatment We reviewed current pap guidelines and she agrees and is aware no pap done today. Pap normal 2016 She has appt. for mammogram and with Dr. Pollard tomorrow Decreased libido: not currently a major issue since not in a relationship, but we discussed options of Addyi and that she can't drink alcohol while taking it. She'll let me know if she wants to discuss this further in the future - Last Documented On 02/19/2017 4:11PM ; [facility] Instructions to patient Instructions for patient : B reast Self Exam discussed Last Documented On 7 3:51PM ; [facility] Education and Decision Aids were provided during visit for: Patient education : Last Documented On 7 3:51PM ; [facility] STD screening offered and de clined Last Documented On 7 3:51PM ; [facility] Assessments Includes: Assessments from this encounter Findings - Routine pelvic exam - Last Documented On 02/19/2017 4:11PM ; [facility] Instructions Includes: Instructions from this encounter Instructions to patient Instructions for patient : B reast Self Exam discussed Last Documented On 7 3:51PM ; [facility] Education and Decision Aids were provided during visit for: Patient education : Last Documented On 7 3:51PM ; [facility] STD screening offered and de clined Last Documented On 7 3:51PM ; [facility] Medical Equipment - Implanted Devices Includes: Current Devices No Medical Equipment Recorded Medications Includes: Medications discussed during this encounter and other current Medications Discontinued / Stopped on this date on 02/10/2016 Mirtazapine 30 MG Tablet Provider: Diagnosis: Last Documented On 02/19/2017 3:47PM By ELIAS JARQUIN LPN ; [facility] Pantoprazole Sodium 40 MG OR TBEC Provide r: SALEEM DUMONT MD Diagnosis: Last Documented On 02/19/2017 3:47PM By ELIAS JARQUIN LPN ; [facility] Current Medications (continue as prescribed) [facility] Melatonin 10MG Oral Capsule, conventional 02/26/20 18 Provider: Diagnosis: Last Documented On 8 3:39PM By NATIVIDAD COTA ; [facility] Pepcid 20MG Oral Tablet 02/19/2017 Provider: Diagnosis: Last Documented On 02/19/2017 3:48PM By ELIAS JARQUIN LPN ; [facility] Vitamin D3 1000UNIT Oral Tablet Chewable 7 Provider: Diagnosis: Last Documented On 02/19/2017 3:48PM By ELIAS JARQUIN LPN ; [facility] Vitamin C 1000MG Oral Tablet Chewable 02/19/2017 Provider: Diagnosis: Last Documented On 02/19/2017 3:48PM By ELIAS JARQUIN LPN ; [facility] Tamoxifen Citrate 10 MG OR TABS 12/04/2013 Provider: Diagnosis: Last Documented On 12/04/2013 11:10AM By ALAINA JOSHUA LPN ; [facility] Levothyroxine Sodium 75 MCG OR TABS 11/17/2011 Provi marylu: Diagnosis: Last Documented On 2 11:10AM By DR. JEFRY SALAZAR ; [facility] Past Medications on file Anusol-HC 2.5% RE CREA 11/17/2011 - 03/16/2012 Provide r: JEFRY SALAZAR M.D. Diagnosis: HEMORRHOIDS NOS apply PRN Last Documented On 2 11:15AM By DR. JEFRY SALAZAR ; [facility] LO-LOESTRIN FE 10/17/ MG/MCG MT TABS 11/15/2010 - 03/15/2011 Provider: JEFRY SALAZAR M.D. Diagnosis: OTHER FAMILY TINY NNING ADVICE NEC Last Documented On 1 9:38AM By DR. JEFRY SALAZAR ; [facility] Mircette 0.15-0.02/0.01 MG (25/02) OR TABS 10/22/2008 - 10/17/2009 Provider: Diagnosis: Last Documented On 9 11:44AM By DEENA MALLOY ; [facility] Medications Administered Includes: Administered Medications from this encounter No Administered Medications Recorded Vital Signs Includes: Vital Signs from this encounter Vital Name 02/19/2017 03:44P Blood Pressure Sitting (mmHg) 130/68 Height (in) 58 Weight (lb) 126.8 Body Mass Index (kg/m2) 26.5 Body Surface Area (m2) 1.5 Last Documented: On 02/19/2017 3:46PM ; [facility] Results Includes: Results discussed during this encounter No Results Recorded For Specified Dates History of Present Illness Includes: History of Present Illness from this encounter JOS OCONNELL is a 46 year old female. - No unusual bleeding. - No pelvic pain. - No vaginal discharge. She got in October. Their main issue was Elsa's lack of libido. She tried testosterone in past and it did not work Social History Description Last Updated In monogamous relationship 02/19/2017 Last Documented On 7 4:11PM ; [facility] Alcohol use: 2 drinks or less per day oc c 02/19/2017 Last Documented On 7 4:11PM ; [facility] Not sexually active 02/19/2017 Last Documented On 7 4:11PM ; [facility] Non-smoker 02/19/2017 Last Documented On 7 4:11PM ; [facility] Smoking Status Unknown Procedures and Surgical History Includes: Procedures from this encounter Procedures Code Diagnosis Performing Provider Service L ocation Service Date Clinical summary provided to patient Last Documented On 7 3:51PM ; [facility] Medical History Includes: Medical History addressed during this encounter Description Last Updated Contraception: none 02/19/2017 Last Documented On 7 4:11PM ; [facility] LMP: 201202/19/2017 Last Documented On 7 4:11PM ; [facility] 2 02/19/2017 Last Documented On 7 4:11PM ; [facility] Last mammogram date: 02/01/2016 7 Last Documented On 7 4:11PM ; [facility] Last pap smear date 02/10/2016 02/19/2017 Last Documented On 7 4:11PM ; [facility] Para 2 02/19/2017 Last Documented On 7 4:11PM ; [facility] Result: normal 02/19/2017 Last Documented On 7 4:11PM ; [facility] Family History Includes: Family History addressed during this encounter Description Last Updated Family history of malignant female breast neoplasm pt had breast cancer April 2013 02/10/2016 Last Documented On 7 3:40PM ; [facility] no family hx of breast CA ~DM--mother an d PGM 12/10/2014 Last Documented On 7 3:40PM ; [facility] Family history unchanged 12/10/2014 Last Documented On 7 3:40PM ; [facility] No family history of malignant neoplasm of the large intestine 12/10/2014 Last Documented On 7 3:40PM ; [facility] No family history of malignant neoplasm of the ovary 12/10/2014 Last Documented On 7 3:40PM ; [facility] Family history of diabetes m ellitus mother, maternal grandmother and paternal grandmother 03/25/2013 Last Documented On 7 3:40PM ; [facility] No family history of hypercholesterolemi a 11/15/2010 Last Documented On 7 3:40PM ; [facility] No family history of hypertension 2010 Last Documented On 7 3:40PM ; [facility] No family history of uterine cancer 05/2011 Last Documented On 7 3:40PM ; [facility] No heart disease 11/15/2010 Last Documented On 7 3:40PM ; [facility] Family history of Diabetes 10/04/2009 Last Documented On 7 3:40PM ; [facility] Family medical history of high blood pre ssure ~Hyperlipidemia 10/04/2009 Last Documented On 7 3:40PM ; [facility] Review of Systems Includes: Review of Systems [...] Active Last Documented On 8 3:39PM ; [facility] Levaquin Allergy 12/04/2013 Active Last Documented On 8 3:39PM ; [facility] Codeine Allergy 10/04/2009 Active Last Documented On 8 3:39PM ; [facility] Encounters Encounter Provider Location Date Check-In Time Check-Out Time Diagnosis POLYMERIZATION KETTLE OPERATOR EXAM BEKA LUONG MD [facility] FIELD OPERATIONS MANAGER 7 3:39PM 4:10PM Routine Pelvic Exam Clinical Notes Includes: Clinical Notes from this encounter No Clinical Notes Recorded
--- OUTSIDE RECORDS SUMMARY | 2025-01-26 14:43 | XMS_ITS ---
Author Organization [facility] Address [address] [place] [address] Care Team Providers Care Content Checker Name Role Phone Leslie Parker MD Unavailable [phone] Rima Peraza MD Unavailable [phone] Tata Bang MD Unavailable [phone] Messi Gfof MD Unavailable Messi Saunders MD Primary Care Provider [phone] Active Problems Problem Noted Date Diagnosed Date Post-menopausal 03/07/2022 Other osteoporosis without current pathological fracture 03/07/2022 Overview (03/07/2022): At the spine Osteopenia of multiple sites 02/24/2022 Vitamin D deficiency 08/14/2017 Depression 07/27/2016 Weight gain, abnormal 07/27/2016 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 Past Treatment and Therapy Plans
--- OUTSIDE RECORDS SUMMARY | 2025-01-26 14:43 | XMS_ITS | Clinical Summary ---
Author Organization [facility] Address [address] [place] [address] Care Team Providers Care Marketing Teacher Name Role Phone Leslie Parker MD Unavailable [phone] Rima Peraza MD Unavailable [phone] Tata Bang MD Unavailable [phone] Messi Goff MD Unavailable Messi Saunders MD Primary Care Provider [phone] Source Comments [facility],non-owned Affiliates and Associated Physician Practices is amultiple site organization consisting of ambulatory clinics and hospital sitesin [place], [place], [place] and [place]. This disclosure is being madepursuant to the Care Everywhere program and may not contain all information available regarding this patient. Last updated 18.[facility] Allergies Active Allergy Reactions Criticality Noted Date Comments Codeine 07/17/2013 Levofloxacin Nausea and/or Vomiting 07/17/2013 Kdc:Ci Pigment Blue 63+Pantoprazole Rash Medium 02/24/2022 Azithromycin 07/17/2013 Medications * Be aware that medications may not be up to date on this document. Alwaysverify current medications with the patient. ibuprofen (MOTRIN) 200 MG tablet 200 mg 3 Active acetaminophen (TYLENOL) 325 MG tablet 325 mg 3 Active Ascorbic Acid (VITAMIN C) 500 MG A ctive Biotin 10 MG Take by mouth once daily Active Cholecalciferol (EQL VITAMIN D3 GUMMIES) 25 MCG (1000 UT) Take 2 (two) tablets by mouth once daily 1 Active Calcium Carbonate 500 MGIndications:Acqu ired hypothyroidism Take 2 (two) tablets by mouth once daily 2 Active mirabegron ER 24hr (Myrbetriq) 25 MG tablet 3 Active albuterol HFA (Proventil; Ventolin; Proair) 108 (90 Base) MCG/ACT inhaler INHALE 2 PUFFS BY MOUTH EVERY 4 HOURS NEEDED FOR WHEEZING OR SHORTNESS OF BREATH 3 Active benzonatate (Tessalon) 200 MG capsule 3 Active levothyroxine (Synthroid) 75 MCG tablet Take 1 (one) tablet by mouth once daily 100 tablet 3 4 Active Active Problems Problem Noted Date Diagnosed [...] treated with chemo: 09/1991-- 02/1995 In remission Encounters Date Type Department Care Team Description 10/29/2024 Telephone [facility] - Endocrinology [address] [address] [facility], [address] [place] [id number] Rima Peraza MD Results from Last 3 Months Family History Medical History Relation Name Comments CVA Father Hypercholesterolemia Father Diabetes Mother 71 y/o Cancer - Breast Neg Hx Thyroid Disease Neg Hx Relation Name Status Comments Father Mother 71 y/o Social History Tobacco Use Types Packs/Day Years Used Date Smoking Tobacco: Never Smokeless Tobacco: Never Tobacco Cessation:Counseling Given: Not Answered Alcohol Use Standard Drinks/Week Comments No 0 (1 standard drink = 0.6 oz pur e alcohol) Comments No Sex and Gender Information Value Date Recorded Sex Assigned at Female 12/19/2022 6:12 AM CDT Legal Sex Female 1:26 PM DIAMOND CLEANER Gender Identity Female 12/19/2022 6:12 AM CDT Sexual Orientation Choose not to disclose 2022 6:12 AM CDT Last Filed Vital Signs Vital Sign Reading Time Taken Comments Blood Pressure 126/86 08/27/2024 10:07 AM DIAMOND CLEANER Pulse 79 08/27/2024 10:07 AM DIAMOND CLEANER Temperature 36.7 C (98 F) 04/03/2024 11:08 AM CDT Respiratory Rate 18 04/03/2024 11:08 AM CDT Oxygen Saturation 98% 08/27/2024 10:07 AM DIAMOND CLEANER Inhaled Oxygen Concentration - - Weight 62.1 kg (137 lb) 08/27/2024 10:07 AM DIAMOND CLEANER Height 149.9 cm (4' 11 ) 08/27/2024 10:07 AM DIAMOND CLEANER Body Mass Index 27.67 08/27/2024 10:07 AM DIAMOND CLEANER Plan of Treatment Upcoming Encounters Date Type Department Care Team (Late st Contact Info) Description 08/27/2025 10:00 AM DIAMOND CLEANER Office Visit [facility] - Endocrinology [id number] [place] [address], [address] [place] [address] [place] [id number] [place] [address] [address] [place] [address] Health Maintenance Due Date Last Done Comments COLOGUARD (AGES 45-75) - COLON CA SCREENING [address] COLONOGRAPHY - COLON CA SCREENING 1972 FIT - COLON CA SCREENING 1972 FLEX SIG - COLON CA SCREENING 1972 LIPID TESTING 1972 PAP SMEAR 1972 HIV SCREENING 1987 HEPATITIS C SCREENING 04/12/1990 DTAP/TDAP/TD VACCINES (1 - Tdap) 1991 HEPATITIS B VACCINE (1 of 3 - 19+ 3-dose series) 1991 PNEUMOCOCCAL VACCINE 50+ (1 of 2 - PCV) 1991 ZOSTER VACCINE (1 of 2) 1991 COVID-19 VACCINE (2 - Tom risk series) 01/10/2021 12/13/2020 DEPRESSION SCREENING 10/08/2024 INFLUENZA VACCINE (Season Ended) 2025 09/11/2023, 09/10/2023, 08/07/2022, Additional history exists SCREENING FOR DIABETES 03/19/2026 , 08/26/2021, 08/15/2018, Additional history exists MAMMOGRAM 08/13/2026 08/13/2024, 03/2024, 07/02/2023, Additional history exists COLONOSCOPY - COLON CA SCREENING 02/17/2032 02/16/2022 Colorectal Cancer Screening 02/17/2032 HIB VACCINE Aged Out No longer eligi ble based on patient's age to complete this topic HPV VACCINE Aged Out No longer eligi ble based on patient's age to complete this topic MENINGOCOCCAL (Group B) VACCINE SHARED DECISION-MAKING Aged Out No longer eligible based on patient's age to complete this topic MENINGOCOCCAL GROUPS A/C/Y/W VACCINE Aged Out No longer eligible based on patient's age to complete this topic Procedures Procedure Name Priority Date/Time Associated Diagnosis Comments COMPREHENSIVE METABOLIC PANEL Routine 03/19/2023 10:33 AM CDT Osteopenia of multiple sites from Last 3 Months or Most Recently Relevant to Health Maintenance Results * (ABNORMAL) COMPREHENSIVE METABOLIC PANEL (03/19/2023 10:33 AM CDT) Glucose 89 70 - 99 mg/dL [facility] ACCOUNT BILL BUN 10 6 - 24 mg/dL [facility] ACCOUNT BILL Creatinine 0.77 0.57 - 1.00 mg/dL [facility] ACCOUNT BILL eGFR by CKD-EPI 94 >59 mL/min/1.7 3 [facility] ACCOUNT BILL BUN/Creatinine Ratio 13 9 - 23 [facility] ACCOUNT BILL Sodium 143 134 - 144 mmol/L [facility] ACCOUNT BILL Potassium 4.3 3.5 - 5.2 mmol/L [facility] ACCOUNT BILL Chloride 107(H) 96 - 106 mmol/L [facility] ACCOUNT BILL CO2 22 20 - 29 mmol/L [facility] ACCOUNT BILL Calcium 9.6 8.7 - 10.2 mg/dL [facility] ACCOUNT BILL Protein Total 6.8 6.0 - 8.5 g/dL [facility] ACCOUNT BILL Albumin 4.5 3.8 - 4.8 g/dL [facility] ACCOUNT BILL Globulin Total 2.3 1.5 - 4.5 g/dL [facility] ACCOUNT BILL Albumin/Globulin Ratio 2.0 1.2 - 2.2 [facility] ACCOUNT BILL Bilirubin Total 0.3 0.0 - 1.2 mg/dL [facility] ACCOUNT BILL Alkaline Phosphatase 66 44 - 121 IU/L [facility] ACCOUNT BILL AST 23 0 - 40 IU/L [facility] ACCOUNT BILL ALT 15 0 - 32 IU/L [facility] ACCOUNT BILL Comment:FASTING Blood BLOOD SPECIMEN / Unknown 03/19/2023 10:33 AM CDT 03/19/2023 Narrative Resulting Agency Comment Lab Testing performed at: [facility] [id number] [facility] [id number] Arianna Wilcox MANAGER OF TRAINING AND DEVELOPMENT-[employer] [facility] - CHEMISTRY ORD ERABLES Final Result [facility] ACCOUNT BILL [address] [place] [address] from Last 3 Months or Most Recently Relevant to Health Maintenance Insurance [employer] Member Subscriber Plan / Payer (Ef fective 2020-Present) Name:Elsa Zamora Relation to Subscriber:Self Name:ELSA ZAMORA Payer ID:[id number] (NAIC) Type:PPO Address: [address] [place] [id number] Care Teams Marketing Teacher Relationship Specialty [place] [id number] [id number] PCP - General Internal Medicine 09/10/24 Leslie Parker MD Obstetrics and Gynecology 01/15/14 [place] [address] [facility] [address] [place] [address] Endocrinology 01/25/15 [place] [address] [facility] [address] [place] [address] Surgical Oncology 07/27/16 [place] [address] [address] [place] [address] Gastroenterology 08/28/19
[2025-01-26 19:34] LABS: Hematocrit 41.3 % (37.0-47.0)
== END 2025-01-26 13:06 | disposition home or self-care (01) ==
LOC: ANHBWCLAB 13:06
PROVIDERS: Visit Provider Student in an Organized Health Care Education/Training Program
DX: R93.89 Abnormal findings on diagnostic imaging of other specified body structures (principal)
CPT/HCPCS: 36415; 85014; 85018

== ENCOUNTER 2025-01-29 02:21 | Day surgery (SDC) | payer BC, OTHER, SELFPAY ==
[2025-01-22 08:52] VITALS: BMI 28.8
--- NOTE | 2025-01-22 09:03 | PC.NURSE ---
Report to the Outpatient Waiting Room, entrance under the green pavilion located off [facility], at time _1200_ on date _[phone]_. Planned Procedure Time: _2pm_.? Time changes happen often and if your time is changed the preop area will call you the afternoon before. - You and your visitor will be asked to self-screen and do not enter if you have any COVID symptoms. Please call surgeon if you need to reschedule. - A mask is optional within the hospital at this time. Patients may have clear liquids (water, carbonated beverages, clear teas, apple juice) until 3 hours prior to surgery with a maximum of 20 ounces. - No food from midnight until time of surgery and no smoking, or chewing tobacco (or any form of nicotine). No chewing gum, candy or mints. Take only the following medications with a SIP of water on the morning of surgery: ____Levothyroxine.____ DO NOT STOP ANY OF YOUR OTHER PRESCRIPTION MEDICATIONS PRIOR TO SURGERY EXCEPT THE FOLLOWING Hold all vitamins and supplements for 3 days per anesthesiologist. Medications to discontinue per physician Date to take last rvrs___[phone]___ Please no make-up, nail danish, hairspray, perfume, deodorant, or body powder the day of surgery.? No jewelry (including any body piercings) or valuables the day of surgery, leave them at home.? Please take a shower or bath the night before, or the morning of, surgery with an antibacterial soap.? Wear comfortable, loose fitting clothing.? - Jewelry must be removed prior to entering the operating room.? Rings and piercings that are not removed may be cut off. - The hospital will not accept responsibility for valuables.? - Please leave all valuables, including medications, at home the day of surgery. If you are going home after surgery, a licensed class c driver must drive you home.? - NO public transportation without another adult if you receive anesthesia. - We recommend that an adult stay with you for 24 hours following discharge. - We also recommend that you do not drive, make important decision, drink alcoholic beverages, or take any drugs that were not prescribed by your health care provider for at least 24 hours after your discharge time. Follow any additional instructions given to you from your surgeon. Telephone instructions given to __Pilar__and asked if any additional questions and then verbalized understanding. Patient advised to call surgeon office or pre surgery nurse liaison [phone] if any additional questions.
--- OUTSIDE RECORDS SUMMARY | 2025-01-29 02:24 | XMS_ITS | Clinical Summary ---
Author Organization [facility] Address [address] [place] [address] Care Team Providers Care Director Of Clinical Applications Name Role Phone Leslie Parker MD Unavailable [phone] Tata Bang MD Unavailable [phone] Rima Peraza MD Unavailable [phone] Messi Goff MD Unavailable [phone] Messi Saunders MD Primary Care Provider [phone] Kenny Ansari MD Unavailable [phone] Allergies Active Allergy Reactions Criticality Noted Date [...] (02/13/2022): Added automatically from request for surgery [id number] Screening for colon cancer 02/13/2022 Overview (02/13/2022): Added automatically from request for surgery [id number] Invasive ductal carcinoma of right breast in fem sania 12/18/2019 BMI 29.0-29.9,adult 07/07/2019 History of long-term treatment with high-risk me dication 07/07/2019 Vitamin D deficiency 08/14/2017 History of breast cancer 08/01/2017 Assessment & Plan (11/11/2020 3:12 PM GATE MORTISER OPERATOR): Currently taking tamoxifen. Managed by Oncology. Hypothyroidism due to Boris's thyroiditis Assessment & Plan (11/11/2020 3:11 PM GATE MORTISER OPERATOR): Stable. Cont. Current meds. Managed by endocrinology. Assessment & Plan (11/07/2019 6:39 PM GATE MORTISER OPERATOR): Managed by endocrinology. Gastroesophageal reflux disease 06/15/2014 Overview (01/11/2017): Gastroesophageal reflux disease Assessment & Plan (02/13/2022 2:56 PM CDT): egd Assessment & Plan (11/07/2019 6:40 PM GATE MORTISER OPERATOR): Managed by GI. 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 Malignant neoplasm of breast 06/05/2013 Overview (01/12/2017): Breast cancer, right breast Assessment & Plan (11/07/2019 6:40 PM GATE MORTISER OPERATOR): Managed by Heme/Onc. Chronic venous insufficiency 05/08/2013 Overview (01/12/2017): Venous insufficiency Carcinoma in situ of breast 05/07/2013 Resolved Problems Problem Noted Date Diagnosed Date Resolved Date Screening for thyroid disorder 11/11/2020 11/11/2020 Biliary dyskinesia 01/10/2019 9 Overview (01/10/2019): Added automatically from request for surgery [id number] Nausea 12/20/2018 11/07/2019 Assessment & Plan (12/20/2018 [...] (12/20/2018): Added automatically from request for surgery [id number] Abdominal pain 12/20/2018 11/07/2019 Overview (12/20/2018): Added automatically from request for surgery [id number] Assessment & Plan (03/10/2019 2:13 PM CDT): All sx resolved with nazario. Have pmd repeat LFTs to be sure of normalizzation and return prn Nausea and vomiting 12/20/2018 11/07/19 20 Overview (12/20/2018): Added automatically from request for surgery [id number] Calculus of gallbladder with out cholecystitis without obstruction 12/13/2018 02/19/2019 Assessment & Plan (12/13/2018 11:13 AM GATE MORTISER OPERATOR): Patient main concern is of nausea, [...] recap. Assessment & Plan (12/13/2018 11:12 AM GATE MORTISER OPERATOR): Slow rise in lft's (ast and [...] Preservative Free, Intramuscular 08/07/2022,07/30/2021,07/11/2020 Influenza, Unspecified 09/11/2023,2019,07/11/2019,08/02 [place] (J&J) SARS-CoV-2 Vaccination 12/13/2020 Pneumococcal Conjugate Pcv20 [...] (acute lymphoblastic leukemia) (HCC) 1990 chemo from [id number] Family History Medical History Relation Name Comments [...] on file Legal Sex Female 10:29 AM GATE MORTISER OPERATOR Gender Identity Female 10/19/2022 10:44 AM GATE MORTISER OPERATOR Sexual Orientation Not on file Obstetrics History Last Filed Vital Signs Vital Sign Reading Time Taken Comments Blood Pressure 134/82 08/12/2024 9:48 AM GATE MORTISER OPERATOR Pulse 76 08/12/2024 9:48 AM GATE MORTISER OPERATOR Temperature 36.3 C (97.3 F) 08/12/2024 9:48 AM GATE MORTISER OPERATOR Respiratory Rate 18 08/12/2024 9:48 AM GATE MORTISER OPERATOR Oxygen Saturation 97% 08/12/2024 9:48 AM GATE MORTISER OPERATOR Inhaled Oxygen Concentration - - Weight 61.4 kg (135 lb 5.8 oz) 08/13/2024 10:47 AM GATE MORTISER OPERATOR Height 149.9 cm (4' 11.02 ) 08/13/2024 10:47 AM GATE MORTISER OPERATOR Body Mass Index 27.33 08/13/2024 10:47 AM GATE MORTISER OPERATOR Plan of Treatment Health Maintenance Due [...] Read Routine (OP Routine) 08/13/2024 11:29 AM GATE MORTISER OPERATOR Breast cancer screening, high risk patient COLONOSCOPY 02/16/2022 11:50 AM CDT HEPATITIS C ANTIBODY Routine 11/11/2020 2:33 PM GATE MORTISER OPERATOR Encounter for hepatitis C screening test for low risk patient HM PAP SMEAR WITH HPV Routine 11/09/2020 9:41 AM GATE MORTISER OPERATOR from Last 3 Months or Most Recently Relevant to Health Maintenance Results * Screening Mammogram Bilateral W Brock (08/13/2024 11:29 AM GATE MORTISER OPERATOR) Anatomical Region Laterality Modality Breast Bilateral Mammography Narrative 08/13/2024 2:48 PM GATE MORTISER OPERATOR Mammogram Technique: Bilateral Digital Breast Tomosynthesis, Bilateral C-view 2D Screening mammogram. Views obtained: bilateral craniocaudal and bilateral mediolateral oblique. Computer Aided Detection was performed. Mammogram Findings: The present examination has been compared to prior imaging studies performed at [facility] on 06/23/2022, 12/22/2022 and 07/02/2023. There are [...] compared to prior imaging studies performed at [facility] on 06/23/2022, 12/22/2022 and 07/02/2023. There are [...] Goff MD - 02/16/2022 11:50 AM CDT [facility] Patient Name: Edita Walter Procedure Date: 02/16/2022 11:50 AM Date of : 1970 Admit Type: Outpatient Age: 51 Gender: Female Attending MD: Messi Goff M.D. Room: [facility] ROOM 2 Note Status: Finalized Patient Profile: [...] scope was passed under direct vision. TheColonoscope [id number] was introduced through the anus and advanced [...] malignant neoplasm of colon CPT copyright 2020 [employer]. All rights reserved. The codes documented in this report are preliminary and upon senior sales manager reviewmay be revised to meet current compliance requirements. Recognized by the [place] [employer] for promoting quality in endoscopy us Messi Goff MD ENDOSCOPY PROCEDURES Final Re sult * Hepatitis C antibody (11/11/2020 2:33 PM GATE MORTISER OPERATOR) Hep C Ab Nonreactive Nonreactive KAYLA SORIA ([place]) Comment: Interpretive Data Nonreactive: Antibodies to HCV [...] last revised on 2019. Testing performed by: [facility], [address] [place] [address], [place] [address] Blood specimen (specimen) 11/11/2020 2:33 PM GATE MORTISER OPERATOR 11/11/2020 6:47 PM GATE MORTISER OPERATOR us Sharifa Sin DO LAB MICROBIOLOGY - GENERAL ORDERABLES Final Result KAYLA SORIA ([place]) 1 [facility] Department [place] [address] * HM PAP SMEAR WITH HPV (11/09/2020 9:41 AM GATE MORTISER OPERATOR) Scribed Pap Smear w/HPV Normal 11/09/2020 9:41 AM GATE MORTISER OPERATOR us Historical Provider HEALTH MAINTENANCE Final Result from Last 3 Months or Most Recently Relevant to Health Maintenance Insurance [facility] ACCESS CHOICE [place] Advance Directives For more information, please contact: [phone] * Full Code (Latest Code Status on File) Date Activated Date Inactivated Comments 02/16/2022 11:58 AM 02/16/2022 6:22 PM * Full Code Date Activated Date Inactivated Comments 02/16/2022 11:57 AM 02/16/2022 11:58 AM * Full Code Date Activated Date Inactivated Comments 12/24/2018 11:54 AM 12/24/2018 5:39 PM * Full Code Date Activated Date Inactivated Comments 12/24/2018 11:54 AM 12/24/2018 11:54 AM Care Teams Director Of Clinical Applications Relationship Specialty [place] [id number] [address] PCP - General Internal Medicine 12/15/22 Leslie Parker MD Applications Analyst Obstetrics and Gynecology 07/07/19 Tata Bang MD Surgeon Surgical Oncology 07/07/19 [place] [address] [address] Referring Physician Endocrinology Diabetes & Metabolism 09/01/19 Messi Goff MD [address] [facility] [address] [place] [address] Consulting Physician Gastroenterology 11/17/21 [place] [id number] [address] Medical Oncologist/Hematologis t Hematology and Oncology 01/17/23
--- OUTSIDE RECORDS SUMMARY | 2025-01-29 02:24 | XMS_ITS | Referral Summary ---
Author Organization [facility] Address [address] [place] [address] Care Team Providers Care Cocoa Mill Operator Name Role Phone Leslie Parker MD Unavailable [phone] Tata Bang MD Unavailable [phone] Rima Peraza MD Unavailable [phone] Messi Goff MD Unavailable [phone] Messi Saunders MD Primary Care Provider [phone] Kenny Ansari MD Unavailable [phone] Allergies Active Allergy Reactions Criticality Noted Date [...] (02/13/2022): Added automatically from request for surgery [id number] Screening for colon cancer 02/13/2022 Overview (02/13/2022): Added automatically from request for surgery [id number] Invasive ductal carcinoma of right breast in fem sania 12/18/2019 BMI 29.0-29.9,adult 07/07/2019 History of long-term treatment with high-risk me dication 07/07/2019 Vitamin D deficiency 08/14/2017 History of breast cancer 08/01/2017 Assessment & Plan (11/11/2020 3:12 PM COATER CARBON PAPER): Currently taking tamoxifen. Managed by Oncology. Hypothyroidism due to Boris's thyroiditis Assessment & Plan (11/11/2020 3:11 PM COATER CARBON PAPER): Stable. Cont. Current meds. Managed by endocrinology. Assessment & Plan (11/07/2019 6:39 PM COATER CARBON PAPER): Managed by endocrinology. Gastroesophageal reflux disease 06/15/2014 Overview (01/11/2017): Gastroesophageal reflux disease Assessment & Plan (02/13/2022 2:56 PM CDT): egd Assessment & Plan (11/07/2019 6:40 PM COATER CARBON PAPER): Managed by GI. 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 Malignant neoplasm of breast 06/05/2013 Overview (01/12/2017): Breast cancer, right breast Assessment & Plan (11/07/2019 6:40 PM COATER CARBON PAPER): Managed by Heme/Onc. Chronic venous insufficiency 05/08/2013 Overview (01/12/2017): Venous insufficiency Carcinoma in situ of breast 05/07/2013 Resolved Problems Problem Noted Date Diagnosed Date Resolved Date Screening for thyroid disorder 11/11/2020 11/11/2020 Biliary dyskinesia 01/10/2019 9 Overview (01/10/2019): Added automatically from request for surgery [id number] Nausea 12/20/2018 11/07/2019 Assessment & Plan (12/20/2018 [...] (12/20/2018): Added automatically from request for surgery [id number] Abdominal pain 12/20/2018 11/07/2019 Overview (12/20/2018): Added automatically from request for surgery [id number] Assessment & Plan (03/10/2019 2:13 PM CDT): All sx resolved with nazario. Have pmd repeat LFTs to be sure of normalizzation and return prn Nausea and vomiting 12/20/2018 11/07/19 20 Overview (12/20/2018): Added automatically from request for surgery [id number] Calculus of gallbladder with out cholecystitis without obstruction 12/13/2018 02/19/2019 Assessment & Plan (12/13/2018 11:13 AM COATER CARBON PAPER): Patient main concern is of nausea, unrelated, [...] recap. Assessment & Plan (12/13/2018 11:12 AM COATER CARBON PAPER): Slow rise in lft's (ast and alt) [...] Preservative Free, Intramuscular 08/07/2022,07/30/2021,07/11/2020 Influenza, Unspecified 09/11/2023,2019,07/11/2019,08/02 [employer] (J[employer]J) SARS-CoV-2 Vaccination 12/13/2020 Pneumococcal Conjugate Pcv20 [...] on file Legal Sex Female 10:29 AM COATER CARBON PAPER Gender Identity Female 10/19/2022 10:44 AM COATER CARBON PAPER Sexual Orientation Not on file Last Filed Vital Signs Vital Sign Reading Time Taken Comments Blood Pressure 134/82 08/12/2024 9:48 AM COATER CARBON PAPER Pulse 76 08/12/2024 9:48 AM COATER CARBON PAPER Temperature 36.3 C (97.3 F) 08/12/2024 9:48 AM COATER CARBON PAPER Respiratory Rate 18 08/12/2024 9:48 AM COATER CARBON PAPER Oxygen Saturation 97% 08/12/2024 9:48 AM COATER CARBON PAPER Inhaled Oxygen Concentration - - Weight 61.4 kg (135 lb 5.8 oz) 08/13/2024 10:47 AM COATER CARBON PAPER Height 149.9 cm (4' 11.02 ) 08/13/2024 10:47 AM COATER CARBON PAPER Body Mass Index 27.33 08/13/2024 10:47 AM COATER CARBON PAPER Plan of Treatment Not on file Procedures Procedure Name Priority Date/Time Associated Diagnosis Comments SCREENING MAMMOGRAM BILATERAL W BROCK Schedule Routine, Read Routine (OP Routine) 08/13/2024 11:29 AM COATER CARBON PAPER Breast cancer screening, high risk patient COLONOSCOPY 02/16/2022 11:50 AM CDT HEPATITIS C ANTIBODY Routine 11/11/2020 2:33 PM COATER CARBON PAPER Encounter for hepatitis C screening test for low risk patient HM PAP SMEAR WITH HPV Routine 11/09/2020 9:41 AM COATER CARBON PAPER from Last 3 Months or Most Recently Relevant to Health Maintenance Results * Screening Mammogram Bilateral W Brock (08/13/2024 11:29 AM COATER CARBON PAPER) Anatomical Region Laterality Modality Breast Bilateral Mammography Narrative 08/13/2024 2:48 PM COATER CARBON PAPER Mammogram Technique: Bilateral Digital Breast Tomosynthesis, Bilateral C-view 2D Screening mammogram. Views obtained: bilateral craniocaudal and bilateral mediolateral oblique. Computer Aided Detection was performed. Mammogram Findings: The present examination has been compared to prior imaging studies performed at [facility] on 06/23/2022, 12/22/2022 and 07/02/2023. There are [...] compared to prior imaging studies performed at [facility] on 06/23/2022, 12/22/2022 and 07/02/2023. There are [...] Goff MD - 02/16/2022 11:50 AM CDT [facility] Patient Name: Edita Zamora Procedure Date: 02/16/2022 11:50 AM Date of : 1970 Admit Type: Outpatient Age: 51 Gender: Female Attending MD: Messi Goff M.D. Room: [facility] ENDOSCOPY ROOM 2 Note Status: Finalized Patient [...] scope was passed under direct vision. TheColonoscope [id number] was introduced through the anus and advanced [...] malignant neoplasm of colon CPT copyright 2020 [employer]. All rights reserved. The codes documented in this report are preliminary and upon cnc lathe machinist reviewmay be revised to meet current compliance requirements. Recognized by the [employer] for promoting quality in endoscopy us Messi Goff MD ENDOSCOPY PROCEDURES Final Re sult * Hepatitis C antibody (11/11/2020 2:33 PM COATER CARBON PAPER) Hep C Ab Nonreactive Nonreactive KAYLA SORIA ([place]) Comment: Interpretive Data Nonreactive: Antibodies to HCV [...] last revised on 2019. Testing performed by: [facility], [address] [place] [address]., [address] Blood specimen (specimen) 11/11/2020 2:33 PM COATER CARBON PAPER 11/11/2020 6:47 PM COATER CARBON PAPER us Sharifa Sin DO LAB MICROBIOLOGY - GENERAL ORDERABLES Final Result KAYLA SORIA ([place]) 1 [facility] Department [place] [address] * HM PAP SMEAR WITH HPV (11/09/2020 9:41 AM COATER CARBON PAPER) Scribed Pap Smear w/HPV Normal 11/09/2020 9:41 AM COATER CARBON PAPER us Historical Provider HEALTH MAINTENANCE Final Result from Last 3 Months or Most Recently Relevant to Health Maintenance Insurance [employer] [place] Advance Directives For more information, please contact: [phone] * Full Code (Latest Code Status on File) Date Activated Date Inactivated Comments 02/16/2022 11:58 AM 02/16/2022 6:22 PM * Full Code Date Activated Date Inactivated Comments 02/16/2022 11:57 AM 02/16/2022 11:58 AM * Full Code Date Activated Date Inactivated Comments 12/24/2018 11:54 AM 12/24/2018 5:39 PM * Full Code Date Activated Date Inactivated Comments 12/24/2018 11:54 AM 12/24/2018 11:54 AM Care Teams Cocoa Mill Operator Relationship Specialty [place] [id number] [address] PCP - General Internal Medicine 12/15/22 Leslie Parker MD Library Services Dean Obstetrics and Gynecology 07/07/19 Tata Bang MD Surgeon Surgical Oncology 07/07/19 [place] [address] [address] Referring Physician Endocrinology Diabetes & Metabolism 09/01/19 Messi Goff MD [address] [address] Consulting Physician Gastroenterology 11/17/21 [place] [address] [address] Medical Oncologist/Hematologis t Hematology and Oncology 01/17/23
--- OUTSIDE RECORDS SUMMARY | 2025-01-29 02:24 | XMS_ITS | Encounter Summary ---
Author Organization [facility] Healthcare Address [address] [place] [address] Care Team Providers Care Wastewater Treatment Plant Operator Name Role Phone Sharifa Sin Primary Care Provider [phone] Leslie Parker MD Unavailable [phone] Tata Bang MD Unavailable [phone] Rima Peraza MD Unavailable [phone] Kenny Ansari MD Unavailable [phone] Messi Goff MD Unavailable [phone] Messi Saunders MD Primary Care Provider Kenny Ansari MD Unavailable [phone] Encounter Details Date Type Department Care Team (Late st Contact Info) Description 05/20/2020 E-Visit [facility] HealthCare/ Physicians [address] [place] [address] Kimmy Villasenor, IMPREGNATOR [employer] [address] [address] RE: E-Visit Submission: COVID-19 Evaluation [...] on file Legal Sex Female 10:29 AM PSYCH THERAPIST Gender Identity Female 10/19/2022 10:44 AM PSYCH THERAPIST Sexual Orientation Not on file documented as [...] COVID: Suspected 10/02/2023 10/02/2023 10/02/2023 8:50 AM PSYCH THERAPIST COVID: Suspected 07/15/2024 07/15/2024 07/15/2024 10:38 AM CDT documented as of this encounter Care Teams Wastewater Treatment Plant Operator Relationship Specialty Start Date End Date Sharifa SinDO PCP - General 05/27/19 12/14/22 [place] [address] [address] PCP - General Internal Medicine 12/15/22 Leslie Parker MD Oil Bay Technician Obstetrics and Gynecology 07/07/19 Tata Bang MD Surgeon Surgical Oncology 07/07/19 [place] [address] [address] Referring Physician Endocrinology Diabetes & Metabolism 09/01/19 [place] [address] [place] [address] Medical Oncologist/Hematologis t Hematology and Oncology 02/10/20 01/16/23 Messi Goff MD [address] [facility] [address] [place] [address] Consulting Physician Gastroenterology 11/17/21 [place] [address] [address] Medical Oncologist/Hematologis t Hematology and Oncology 01/17/23 documented as of this encounter
--- OUTSIDE RECORDS SUMMARY | 2025-01-29 02:24 | XMS_ITS | Clinical Summary ---
Author Organization [facility] Address [address] [place] [address] Phone Care Team Providers Care Open Hearth Furnace Operator Helper Name Role Phone Unavailable Unavailable Unavailable Reason for Visit and Chief Complaint * PHONE CALL Problems Includes: Problems addressed during this encounter and other active Problems All Visits Onset Date Resolved Date Provider Condition S tatus Drug Toxicity Chemotherapeutics 12/04/2013 BEKA LUONG MD Active Last Documented On 4 11:15AM ; [facility] History of Ductal Xlhkpstrz-da-vfne of the Breast 12/04/2013 BEKA LUONG MD Active Last Documented On 4 11:10AM ; [facility] Note: Dr. Regine Sethi oncologist Irregular Menstrual Bleeding 03/25/2013 BEKA LUONG MD Active Last Documented On 3 9:54AM ; [facility] HEARTBURN 11/17/2011 JEFRY SALAZAR M.D. A ctive Last Documented On 2 10:51AM ; [facility] DISORDER OF THYROID NOS 02/14/2011 JEFRY GARRETT M.D. Active Last Documented On 1 9:08AM ; [facility] Plan of Treatment No Plan of Treatment Recorded Assessments Includes: Assessments from this encounter No Assessments Recorded Medical Equipment - Implanted Devices Includes: Current Devices No Medical Equipment Recorded Medications Includes: Medications discussed during this encounter and other current Medications Current Medications (continue as prescribed) [facility] Melatonin 10MG Oral Capsule, conventional 02/26/20 Provider: Diagnosis: Last Documented On 8 3:39PM By NATIVIDAD COTA ; [facility] Pepcid 20MG Oral Tablet 02/19/2017 Provider: Diagnosis: Last Documented On 02/19/2017 3:48PM By ELIAS JARQUIN LPN ; [facility] Vitamin D3 1000UNIT Oral Tablet Chewable 7 Provider: Diagnosis: Last Documented On 02/19/2017 3:48PM By ELIAS JARQUIN LPN ; [facility] Vitamin C 1000MG Oral Tablet Chewable 02/19/2017 Provider: Diagnosis: Last Documented On 02/19/2017 3:48PM By ELIAS JARQUIN LPN ; [facility] Tamoxifen Citrate 10 MG OR TABS 12/04/2013 Provider: Diagnosis: Last Documented On 12/04/2013 11:10AM By ALAINA JOSHUA LPN ; [facility] Levothyroxine Sodium 75 MCG OR TABS 11/17/2011 Provi marylu: Diagnosis: Last Documented On 2 11:10AM By DR. JEFRY SALAZAR ; [facility] Past Medications on file Anusol-HC 2.5% RE CREA 11/17/2011 - 03/16/2012 Provide r: JEFRY SALAZAR M.D. Diagnosis: HEMORRHOIDS NOS apply PRN Last Documented On 2 11:15AM By DR. JEFRY SALAZAR ; [facility] LO-LOESTRIN FE 10/17/10 MG/MCG MT TABS 11/15/2010 - 03/15/2011 Provider: JEFRY SALAZAR M.D. Diagnosis: OTHER FAMILY TINY NNING ADVICE NEC Last Documented On 1 9:38AM By DR. JEFRY SALAZAR ; [facility] Mircette 0.15-0.02/0.01 MG (25/02) OR TABS 10/22/2008 - 10/17/2009 Provider: Diagnosis: Last Documented On 9 11:44AM By DEENA MALLOY ; [facility] Medications Administered Includes: Administered Medications from this [...] Active Last Documented On 8 3:39PM ; [facility] Levaquin Allergy 12/04/2013 Active Last Documented On 8 3:39PM ; [facility] Codeine Allergy 10/04/2009 Active Last Documented On 8 3:39PM ; [facility] Encounters Encounter Provider Location Date Check-In Time Check-Out Time Diagnosis * PHONE CALL BEKA LUONG MD [facility] PACU RN 5 9:19AM 11:59PM Clinical Notes Includes: Clinical Notes from this encounter No Clinical Notes Recorded
--- OUTSIDE RECORDS SUMMARY | 2025-01-29 02:25 | XMS_ITS | Clinical Summary ---
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 Name Role Phone Unavailable Unavailable Unavailable Reason for Visit and Chief Complaint gynecologic annual exam - The Chief Complaint is: annual Problems Includes: Problems addressed during this encounter and other active Problems All Visits Onset Date Resolved Date Provider Condition S tatus Drug Toxicity Chemotherapeutics 12/04/2013 BEKA LUONG MD Active Last Documented On 4 11:15AM ; [facility] History of Ductal Uetqzqxyf-gd-bbac of the Breast 12/04/2013 BEKA LUONG MD Active Last Documented On 4 11:10AM ; [facility] Note: R Dr. Regine caceres oncologist Irregular Menstrual Bleeding 03/25/2013 BEKA LUONG MD Active Last Documented On 3 9:54AM ; [facility] HEARTBURN 11/17/2011 JEFRY SALAZAR M.D. A ctive Last Documented On 2 10:51AM ; [facility] DISORDER OF THYROID NOS 02/14/2011 JEFRY GARRETT M.D. Active Last Documented On 1 9:08AM ; [facility] Plan of Treatment - Clinical summary provided to patient - Last Documented On 02/10/2016 11:25AM ; [facility] PT TO CALL WITH ANY CHANGE IN STATUS ALL QUESTIONS ANSWERED WITH UNDERSTANDING VERBALIZED BY PT. - Last Documented On 02/10/2016 11:25AM ; [facility] RTC 1 YEAR - Last Documented On 02/10/2016 11:25AM ; [facility] Instructions to patient Instructions for patient : B reast Self Exam discussed Last Documented On 6 11:03AM ; [facility] Instructed to call if excess lindsay bleeding or abdominal/pelvic pain Last Documented On 6 11:12AM ; [facility] Recommend diet and exercise at least 30 min three times per week Last Documented On 6 11:12AM ; [facility] Education and Decision Aids were provided during visit for: Patient Education: Daily beth cium and vitamin D Last Documented On 6 11:12AM ; [facility] Assessments Includes: Assessments from this encounter Findings - Routine pelvic exam - Last Documented On 02/10/2016 11:25AM ; [facility] - NORMAL FEMALE EXAM - Last Documented On 02/10/2016 11:25AM ; [facility] - Screen malignant neoplasm cervix - Last Documented On 02/10/2016 11:25AM ; [facility] Instructions Includes: Instructions from this encounter Instructions to patient Instructions for patient : B reast Self Exam discussed Last Documented On 6 11:03AM ; [facility] Instructed to call if excess lindsay bleeding or abdominal/pelvic pain Last Documented On 6 11:12AM ; [facility] Recommend diet and exercise at least 30 min three times per week Last Documented On 6 11:12AM ; [facility] Education and Decision Aids were provided during visit for: Patient Education: Daily beth cium and vitamin D Last Documented On 6 11:12AM ; [facility] Medical Equipment - Implanted Devices Includes: Current Devices No Medical Equipment Recorded Medications Includes: Medications discussed during this encounter and other current Medications Discontinued / Stopped on this date on 12/11/2014 Rinderer's testosterone cream 0.1% EX CREA Provider: Diagnosis: Last Documented On 02/10/2016 10:57AM By DARWIN YEE CMA ; [facility] Current Medications (continue as prescribed) [facility] Melatonin 10MG Oral Capsule, conventional 02/26/20 18 Provider: Diagnosis: Last Documented On 3:39PM By NATIVIDAD COTA ; [facility] Pepcid 20MG Oral Tablet 02/19/2017 Provider: Diagnosis: Last Documented On 02/19/2017 3:48PM By ELIAS JARQUIN LPN ; [facility] Vitamin D3 1000UNIT Oral Tablet Chewable 7 Provider: Diagnosis: Last Documented On 02/19/2017 3:48PM By ELIAS JARQUIN LPN ; [facility] Vitamin C 1000MG Oral Tablet Chewable 02/19/2017 Provider: Diagnosis: Last Documented On 02/19/2017 3:48PM By ELIAS JARQUIN LPN ; [facility] Tamoxifen Citrate 10 MG OR TABS 12/04/2013 Provider: Diagnosis: Last Documented On 12/04/2013 11:10AM By ALAINA JOSHUA LPN ; [facility] Levothyroxine Sodium 75 MCG OR TABS 11/17/2011 Provi marylu: Diagnosis: Last Documented On 2 11:10AM By DR. JEFRY SALAZAR ; [facility] Past Medications on file Anusol-HC 2.5% RE CREA 11/17/2011 - 03/16/2012 Provide r: JEFRY SALAZAR M.D. Diagnosis: HEMORRHOIDS NOS apply PRN Last Documented On 2 11:15AM By DR. JEFRY SALAZAR ; [facility] LO-LOESTRIN FE 10/17/ MG/MCG MT TABS 11/15/2010 - 03/15/2011 Provider: JEFRY SALAZAR M.D. Diagnosis: OTHER FAMILY TINY NNING ADVICE NEC Last Documented On 1 9:38AM By DR. JEFRY SALAZAR ; [facility] Mircette 0.15-0.02/0.01 MG (25/02) OR TABS 10/22/2008 - 10/17/2009 Provider: Diagnosis: Last Documented On 9 11:44AM By DEENA MALLOY ; [facility] Medications Administered Includes: Administered Medications from this encounter No Administered Medications Recorded Vital Signs Includes: Vital Signs from this encounter Vital Name 02/10/2016 11:00A 02/10/2016 10: 59A Height (in) 59 Blood Pressure Sitting (mmHg) 116/72 Weight (lb) 146 Last Documented: On 02/10/2016 11:00A M ; [facility] On 02/10/2016 11:00AM ; [facility] Results Includes: Results discussed during this [...] 2015 Last Documented On 6 11:25AM ; [facility] Alcohol use: 2 drinks or less per day Last Documented On 6 11:25AM ; [facility] control is being practiced 016 Last Documented On 6 11:25AM ; [facility] Denied sexual activity 02/10/2016 Last Documented On 6 11:25AM ; [facility] Education history 02/10/2016 Last Documented On 6 11:25AM ; [facility] In monogamous relationship 02/10/2016 Last Documented On 6 11:25AM ; [facility] Non-smoker 02/10/2016 Last Documented On 6 11:25AM ; [facility] Not using alcohol 02/10/2016 Last Documented On 6 11:25AM ; [facility] Personal history 02/10/2016 Last Documented On 6 11:25AM ; [facility] Sexually active 02/10/2016 Last Documented On 6 11:25AM ; [facility] Sexually active with 1 partners in the l ast year 02/10/2016 Last Documented On 6 11:25AM ; [facility] Single 02/10/2016 Last Documented On 6 11:25AM ; [facility] Smoking status : Never smoker 02/10/2016 Last Documented On 6 11:25AM ; [facility] Social history unchanged 02/10/2016 Last Documented On 6 11:25AM ; [facility] Alcohol use: 2 drinks or less per day so cially 02/10/2016 Last Documented On 6 11:25AM ; [facility] Procedures and Surgical History Includes: Procedures from this encounter Procedures Code Diagnosis Performing Provider Service L ocation Service Date explanation of plan Last Documented On 6 11:12AM ; [facility] junk-free diet including sodas Last Documented On 6 11:12AM ; [facility] Urged Exercise and Diet , exercise at le ast 30 min three times per week Last Documented On 6 11:12AM ; [facility] cervical Pap smear 92704 Last Documented On 6 11:03AM ; [facility] FIT Test-Fecal Occult negative 04179 Last Documented On 6 11:12AM ; [facility] Surgical History Last Updated Surgical / procedural histor y Silverman catheter September 25, 1991 ~Lumpectomy April 21, 2013 ~Powerport placed May 19, 2013 12/10/2014 Last Documented On 6 10:50AM ; [facility] Medical History Includes: Medical History addressed during this encounter Description Last Updated hx of breast CA 02/10/2016 Last Documented On 6 11:25AM ; [facility] Leukemia AML ~Silverman Catheter 6 Last Documented On 6 11:25AM ; [facility] 2 living children 02/10/2016 Last Documented On 6 11:25AM ; [facility] A breast self-exam was performed 016 Last Documented On 6 11:25AM ; [facility] A colonoscopy was performed 07/17/2011 0 02/10/2016 Last Documented On 6 11:25AM ; [facility] Condoms 02/10/2016 Last Documented On 6 11:25AM ; [facility] Contraception: 02/10/2016 Last Documented On 6 11:25AM ; [facility] 2 02/10/2016 Last Documented On 6 11:25AM ; [facility] History of chronic reflux esophagitis Last Documented On 6 11:25AM ; [facility] History of hyperthyroidism 02/10/2016 Last Documented On 6 11:25AM ; [facility] History of leukemia 02/10/2016 Last Documented On 6 11:25AM ; [facility] History of thyroid disorder 02/10/2016 Last Documented On 6 11:25AM ; [facility] Last mammogram date: 03/28/2013 6 Last Documented On 6 11:25AM ; [facility] Last pap smear date 11/26/2012 02/10/2016 Last Documented On 6 11:25AM ; [facility] LMP: 04/21/2013 02/10/2016 Last Documented On 6 11:25AM ; [facility] No recent change in medical history 02/2016 Last Documented On 6 11:25AM ; [facility] Oral contraceptives 02/10/2016 Last Documented On 6 11:25AM ; [facility] Para 2 02/10/2016 Last Documented On 6 11:25AM ; [facility] Result: abnormal ascus. neg hr hpv 02/09 Last Documented On 6 11:25AM ; [facility] Result: abnormal Bx performed, Ductal Ca rcinoma of R breast 02/10/2016 Last Documented On 6 11:25AM ; [facility] Result: normal 02/10/2016 Last Documented On 6 11:25AM ; [facility] Result: normal 02/10/2016 Last Documented On 6 11:25AM ; [facility] Vaginal delivery 02/10/2016 Last Documented On 6 11:25AM ; [facility] Contraception: none 02/10/2016 Last Documented On 6 11:25AM ; [facility] Last mammogram date: 02/01/2016 6 Last Documented On 6 11:25AM ; [facility] LMP: 201202/10/2016 Last Documented On 6 11:25AM ; [facility] Patient recently had a dexa scan couple of years ago 02/10/2016 Last Documented On 6 11:25AM ; [facility] Result: abnormal ASC-US 02/10/2016 Last Documented On 6 11:25AM ; [facility] Family History Includes: Family History addressed during this encounter Description Last Updated Family history of malignant female breast neoplasm pt had breast cancer April 2013 02/10/2016 Last Documented On 6 11:25AM ; [facility] Review of Systems [...] Active Last Documented On 8 3:39PM ; [facility] Levaquin Allergy 12/04/2013 Active Last Documented On 8 3:39PM ; [facility] Codeine Allergy 10/04/2009 Active Last Documented On 8 3:39PM ; [facility] Encounters Encounter Provider Location Date Check-In Time Check-Out Time Diagnosis 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
--- OUTSIDE RECORDS SUMMARY | 2025-01-29 02:25 | XMS_ITS ---
Author Organization [facility] Address [address] [place] [address] Phone Care Team Providers Care Rubber Press Tender Name Role Phone Unavailable Unavailable Unavailable Problems Includes: Active, inactive, and resolved Problems All Visits Onset Date Resolved Date Provider Condition S tatus Drug Toxicity Chemotherapeutics 12/04/2013 BEKA LUONG MD Active Last Documented On 4 11:15AM ; [facility] History of Ductal [id number] of the Breast 12/04/2013 BEKA LUONG MD Active Last Documented On 4 11:10AM ; [facility] Note: R Dr. Regine caceres oncologist Irregular Menstrual Bleeding 03/25/2013 BEKA LUONG MD Active Last Documented On 3 9:54AM ; [facility] HEARTBURN 11/17/2011 JEFRY SALAZAR M.D. A ctive Last Documented On 2 10:51AM ; [facility] DISORDER OF THYROID NOS 02/14/2011 JEFRY GARRETT M.D. Active Last Documented On 1 9:08AM ; [facility] Plan of Treatment Findings Encounter Date Ordered Clinical summary pro vided to patient [employer]IP[employer] SUPERVISOR EXAM with GISEL MORFIN RN [facility] 02/10/2016 Last Documented On 6 11:25AM ; [facility] Ordered a mammogram CONSULTATION with BEKA PALMA MD 03/25/2013 Last Documented On 3 10:32AM ; [facility] Ordered follow-up visit in 1 year or as needed MED CHECK with JEFRY SALAZAR M.D. 02/14/2011 Last Documented On 1 9:41AM ; [facility] Referrals To Diagnosis General Surgery ASHLEY ROSAS MD - [facility] - [address] [place] [id number] - [place] IN SITU BREAST Note: Pt has R ductal carcin sandra in situ. Please set up appt directly with her. She has no scheduling restrictions. Last Documented On 3 4:07PM ; [facility] Instructions to patient Instructions for patient : B reast Self Exam discussed Last Documented On 8 4:03PM ; [facility] Instructions for patient : B reast Self Exam discussed Last Documented On 7 3:51PM ; [facility] Instructions for patient : B reast Self Exam discussed Last Documented On 6 11:03AM ; [facility] Instructed to call if excess lindsay bleeding or abdominal/pelvic pain Last Documented On 6 11:12AM ; [facility] Recommend diet and exercise at least 30 min three times per week Last Documented On 6 11:12AM ; [facility] Instructions for patient : B reast Self Exam discussed Last Documented On 5 8:48AM ; [facility] Instructions for patient : B reast Self Exam discussed Last Documented On 4 11:17AM ; [facility] Instructions for patient : b reast self exam. Patient to come in for appointment if lump or other changes are felt Last Documented On 3 10:31AM ; [facility] Instructions for patient : B reast Self Exam discussed Last Documented On 3 3:16PM ; [facility] Instructions for patient : B reast Self Exam discussed. Reviewed monthly self breast examination and technique Last Documented On 2 11:08AM ; [facility] Recommend diet and exercise at least 30 min three times per week Last Documented On 2 11:08AM ; [facility] Discussed Gardasil vaccinati on and recommend vaccination for HPV prevention. Handout given. Patient understands sexual transmission of high-risk HPV and the association with abnormal pap smear and cervical cancer. Recommend to decrease high risk behaviors such as: number of sexual partners, smoking and contraception use Last Documented On 2 11:08AM ; [facility] Recommend preventative vacci nation including but not limited to influenza/flu vaccine, DTP, Rubella, Hepatitis B vaccination series Last Documented On 2 11:08AM ; [facility] Recommend annual pap smear e xamination or every three year if high risk hpv negative and 3 consecutive normal pap examination during preceding three years Last Documented On 2 11:08AM ; [facility] Recommend TSH, fasting gluco se, fasting lipid panel, CBC, BMP Last Documented On 2 11:08AM ; [facility] Recommend Calcium supplement ation and weight bearing exercise Last Documented On 2 11:08AM ; [facility] Instructions for patient : B reast Self Exam discussed and technique reviewed Last Documented On 1 9:26AM ; [facility] If patient is taking francine. Re commend annual K level. Pt understands risk of hyperkalemia and that if diagnosis of liver or kidney disease that the continuation of francine is not recommended Last Documented On 1 9:26AM ; [facility] Recommend diet and exercise at least 30 min three times per week Last Documented On 1 9:26AM ; [facility] Recommend CBC, TSH, fasting glucose, fasting lipid panel if patient aged 25 or older Last Documented On 1 9:26AM ; [facility] Discussed Gardasil vaccinati on and recommend vaccination for HPV prevention. Handout given. Patient understands sexual transmission of high-risk HPV and the association with abnormal pap smear and cervical cancer. Recommend to decrease high risk behaviors such as: number or sexual partners, smoking, and contraception use Last Documented On 1 9:26AM ; [facility] Recommend preventative vacci nation including but not limited to influenza/flu vaccine, DTP, Rubella, Hepatitis B vaccination series Last Documented On 1 9:26AM ; [facility] Education and Decision Aids were provided during visit for: Patient education : Last Documented On 8 4:03PM ; [facility] STD screening offered and de clined Last Documented On 8 4:03PM ; [facility] Patient education : Last Documented On 7 3:51PM ; [facility] STD screening offered and de clined Last Documented On 7 3:51PM ; [facility] Patient Education: Daily beth cium and vitamin D Last Documented On 6 11:12AM ; [facility] Patient education : Last Documented On 5 8:48AM ; [facility] STD screening offered and de clined Last Documented On 5 8:48AM ; [facility] Patient education : Last Documented On 4 11:17AM ; [facility] STD screening offered and de clined Last Documented On 4 11:17AM ; [facility] Patient education : Last Documented On 3 3:16PM ; [facility] STD screening offered and de clined Last Documented On 3 3:16PM ; [facility] Assessments Includes: Assessments for all patient encounters Findings Encounter Date Routine pelvic exam [employer] SUPERVISOR EXAM with BEKA LUONG MD 02/25/2018 Last Documented On 8 4:05PM ; [facility] Routine pelvic exam [employer]MENT SUPERVISOR EXAM with BEKA LUONG MD 02/19/2017 Last Documented On 7 4:11PM ; [facility] NORMAL FEMALE EXAM [employer]MENT SUPERVISOR EXAM with GISEL Chi YUSEF 02/10/2016 Last Documented On 6 11:25AM ; [facility] Routine pelvic exam HE[employer] E[employer]IPMENT SUPERVISOR EXAM with GISEL MORFIN RN [facility] 02/10/2016 Last Documented On 6 11:25AM ; [facility] Screen malignant neoplasm cervix [employer] E[employer]IPMENT SUPERVISOR EXAM with Sugey MORFIN RN [facility] 02/10/2016 Last Documented On 6 11:25AM ; [facility] Routine pelvic exam [employer]MENT SUPERVISOR EXAM with BEKA LUONG MD 12/10/2014 Last Documented On 5 9:12AM ; [facility] Symptomatic menopause [employer]IPMENT SUPERVISOR EXAM with BEKA Chi MD 12/10/2014 Last Documented On 5 9:12AM ; [facility] Routine pelvic exam [employer]IPMENT SUPERVISOR EXAM with BEKA LUONG MD 12/04/2013 Last Documented On 4 11:42AM ; [facility] Lump or mass in breast CONSULTATION with BEKA LUONG MD 03/25/2013 Last Documented On 3 10:32AM ; [facility] Lump or mass in the right breast CONSULTATION wi th BEKA LUONG MD 03/25/2013 Last Documented On 3 10:32AM ; [facility] Menometrorrhagia CONSULTATION with BEKA LUONG MD 03/25/2013 Last Documented On 3 10:32AM ; [facility] Routine pelvic exam NEW [employer]IPMENT SUPERVISOR EXAM with BEKA PALMA MD 11/26/2012 Last Documented On 3 3:37PM ; [facility] MAMMOGRAM SCREENING HE[employer]IPMENT SUPERVISOR EXAM with JEFRY APONET M.D. 11/17/2011 Last Documented On 2 11:30AM ; [facility] NORMAL FEMALE EXAM [employer]MENT SUPERVISOR EXAM with JEFRY QUINTANA M.D. 11/17/2011 Last Documented On 2 11:30AM ; [facility] Contraceptive surveillance MED CHECK with SANDRA SALAZAR M.D. 02/14/2011 Last Documented On 1 9:41AM ; [facility] Contraceptive management [employer]IPMENT SUPERVISOR EXAM with JEFRY SALAZAR M.D. 11/15/2010 Last Documented On 1 9:39AM ; [facility] NORMAL FEMALE EXAM [employer] E[employer]IPMENT SUPERVISOR EXAM with JEFRY QUINTANA M.D. 11/15/2010 Last Documented On 1 9:39AM ; [facility] Instructions Includes: Instructions for all patient encounters Instructions to patient Instructions for patient : B reast Self Exam discussed Last Documented On 8 4:03PM ; [facility] Instructions for patient : B reast Self Exam discussed Last Documented On 7 3:51PM ; [facility] Instructions for patient : B reast Self Exam discussed Last Documented On 6 11:03AM ; [facility] Instructed to call if excess lindsay bleeding or abdominal/pelvic pain Last Documented On 6 11:12AM ; [facility] Recommend diet and exercise at least 30 min three times per week Last Documented On 6 11:12AM ; [facility] Instructions for patient : B reast Self Exam discussed Last Documented On 5 8:48AM ; [facility] Instructions for patient : B reast Self Exam discussed Last Documented On 4 11:17AM ; [facility] Instructions for patient : b reast self exam. Patient to come in for appointment if lump or other changes are felt Last Documented On 3 10:31AM ; [facility] Instructions for patient : B reast Self Exam discussed Last Documented On 3 3:16PM ; [facility] Instructions for patient : B reast Self Exam discussed. Reviewed monthly self breast examination and technique Last Documented On 2 11:08AM ; [facility] Recommend diet and exercise at least 30 min three times per week Last Documented On 2 11:08AM ; [facility] Discussed Gardasil vaccinati on and recommend vaccination for HPV prevention. Handout given. Patient understands sexual transmission of high-risk HPV and the association with abnormal pap smear and cervical cancer. Recommend to decrease high risk behaviors such as: number of sexual partners, smoking and contraception use Last Documented On 2 11:08AM ; [facility] Recommend preventative vacci nation including but not limited to influenza/flu vaccine, DTP, Rubella, Hepatitis B vaccination series Last Documented On 2 11:08AM ; [facility] Recommend annual pap smear e xamination or every three year if high risk hpv negative and 3 consecutive normal pap examination during preceding three years Last Documented On 2 11:08AM ; [facility] Recommend TSH, fasting gluco se, fasting lipid panel, CBC, BMP Last Documented On 2 11:08AM ; [facility] Recommend Calcium supplement ation and weight bearing exercise Last Documented On 2 11:08AM ; [facility] Instructions for patient : B reast Self Exam discussed and technique reviewed Last Documented On 1 9:26AM ; [facility] If patient is taking francine. Re commend annual K level. Pt understands risk of hyperkalemia and that if diagnosis of liver or kidney disease that the continuation of francine is not recommended Last Documented On 1 9:26AM ; [facility] Recommend diet and exercise at least 30 min three times per week Last Documented On 1 9:26AM ; [facility] Recommend CBC, TSH, fasting glucose, fasting lipid panel if patient aged 25 or older Last Documented On 1 9:26AM ; [facility] Discussed Gardasil vaccinati on and recommend vaccination for HPV prevention. Handout given. Patient understands sexual transmission of high-risk HPV and the association with abnormal pap smear and cervical cancer. Recommend to decrease high risk behaviors such as: number or sexual partners, smoking, and contraception use Last Documented On 1 9:26AM ; [facility] Recommend preventative vacci nation including but not limited to influenza/flu vaccine, DTP, Rubella, Hepatitis B vaccination series Last Documented On 1 9:26AM ; [facility] Education and Decision Aids were provided during visit for: Patient education : Last Documented On 8 4:03PM ; [facility] STD screening offered and de clined Last Documented On 8 4:03PM ; [facility] Patient education : Last Documented On 7 3:51PM ; [facility] STD screening offered and de clined Last Documented On 7 3:51PM ; [facility] Patient Education: Daily beth cium and vitamin D Last Documented On 6 11:12AM ; [facility] Patient education : Last Documented On 5 8:48AM ; [facility] STD screening offered and de clined Last Documented On 5 8:48AM ; [facility] Patient education : Last Documented On 4 11:17AM ; [facility] STD screening offered and de clined Last Documented On 4 11:17AM ; [facility] Patient education : Last Documented On 3 3:16PM ; [facility] STD screening offered and de clined Last Documented On 3 3:16PM ; [facility] Medical Equipment - Implanted Devices Includes: Current and historical Devices No Medical Equipment Recorded Medications Includes: Current and historical Medications Current Medications (continue as prescribed) [facility] Melatonin 10MG Oral Capsule, conventional 02/26/20 18 Provider: Diagnosis: Last Documented On 8 3:39PM By NATIVIDAD COTA ; [facility] Pepcid 20MG Oral Tablet 02/19/2017 Provider: Diagnosis: Last Documented On 02/19/2017 3:48PM By ELIAS JARQUIN LPN ; [facility] Vitamin D3 1000UNIT Oral Tablet Chewable 7 Provider: Diagnosis: Last Documented On 02/19/2017 3:48PM By ELIAS JARQUIN LPN ; [facility] Vitamin C 1000MG Oral Tablet Chewable 02/19/2017 Provider: Diagnosis: Last Documented On 02/19/2017 3:48PM By ELIAS JARQUIN LPN ; [facility] Tamoxifen Citrate 10 MG OR TABS 12/04/2013 Provider: Diagnosis: Last Documented On 12/04/2013 11:10AM By ALAINA JOSHUA LPN ; [facility] Levothyroxine Sodium 75 MCG OR TABS 11/17/2011 Provi [email or web address]: Diagnosis: Last Documented On 2 11:10AM By DR. JEFRY SALAZAR ; [facility] Past Medications on file Mirtazapine 30 MG Tablet 02/10/2016 - 02/19/2017 Provi marylu: Diagnosis: Last Documented On 02/19/2017 3:47PM By ELIAS JARQUIN LPN ; [facility] Rinderer's testosterone cream 0.1% EX CREA 12/11/2014 - 02/10/2016 Provider: Diagnosis: Last Documented On 02/10/2016 10:57AM By DARWIN YEE CMA ; [facility] Ondansetron 8 MG OR TBDP 12/04/2013 - 12/10/2014 Provi marylu: Diagnosis: PRN Last Documented On 5 8:45AM By JOIE JAMIL LPN ; [facility] traMADol HCl 50 MG OR TABS 12/04/2013 - 12/10/2014 Pro vider: Diagnosis: PRN Last Documented On 5 8:45AM By JOIE JAMIL LPN ; [facility] oxyCODONE-Acetaminophen 5-325 MG OR TABS 12/04/2013 - 12/10/2014 Provider: Diagnosis: PRN Last Documented On 5 8:45AM By JOIE JAMIL LPN ; [facility] DocQLace 100 MG OR CAPS 12/04/2013 - 12/10/2014 Provid er: Diagnosis: PRN Last Documented On 5 8:44AM By JOIE JAMIL LPN ; [facility] dexAMETHasone 4 MG OR TABS 12/04/2013 - 12/04/2013 Pro vider: Diagnosis: one po on day of chemo tx + 2 days Last Documented On 12/04/2013 11:10AM By ALAINA JOSHUA LPN ; [facility] Fluconazole 200 MG OR TABS 12/04/2013 - 12/10/2014 Pro vider: Diagnosis: 1po for 3-7 days Last Documented On 5 8:45AM By JOIE JAMIL LPN ; [facility] Ortho Micronor 0.35 MG OR TABS 04/15/2013 - 12/04/2013 Provider: BEKA LUONG MD Diagnosis: Last Documented On 12/04/2013 11:04AM By COLETTE DUMONT ; [facility] Liothyronine Sodium 5 MCG OR TABS 03/25/2013 - 014 Provider: Diagnosis: Last Documented On 12/04/2013 11:04AM By COLETTE DUMONT ; [facility] Anusol-HC 2.5% RE CREA 11/17/2011 - 03/16/2012 Provide r: JEFRY SALAZAR M.D. Diagnosis: HEMORRHOIDS NOS apply PRN Last Documented On 2 11:15AM By DR. JEFRY SALAZAR ; [facility] Pantoprazole Sodium 40 MG OR TBEC 10/23/2011 - 02/19/2017 Provider: SALEEM DUMONT MD Diagnosis: Last Documented On 02/19/2017 3:47PM By ELIAS JARQUIN LPN ; [facility] LO-LOESTRIN FE 10/17/09 MG/MCG MT TABS 02/14/2011 - 11/17/2011 Provider: JEFRY SALAZAR M.D. Diagnosis: CONTRACEPT SURVE ILL NOS Last Documented On 2 11:10AM By DR. JEFRY SALAZAR ; [facility] LO-LOESTRIN FE 10/17/09 MG/MCG MT TABS 11/15/2010 - 03/15/2011 Provider: JEFRY SALAZAR M.D. Diagnosis: OTHER FAMILY TINY NNING ADVICE NEC Last Documented On 1 9:38AM By DR. JEFRY SALAZAR ; [facility] Levothyroxine 0.06 MCG MT TABS 10/28/2010 - 11/17/2011 Provider: Diagnosis: Last Documented On 2 11:10AM By DR. JEFRY SALAZAR ; [facility] Mircette 0.15-0.02/0.01 MG (25/02) OR TABS 10/22/2008 - 10/17/2009 Provider: Diagnosis: Last Documented On 9 11:44AM By DEENA MALLOY ; [facility] Medications Administered Includes: Administered Medications in patient's chart No Administered Medications Recorded Results Includes: Results from 01/30/2024 through 01/29/2025 No Results Recorded For Specified Dates History of Present Illness History of Present Illness not supported for this document type No History of Present Illness Recorded Social History Description Last Updated In monogamous relationship 02/25/2018 Last Documented On 8 4:05PM ; [facility] Alcohol use: 2 drinks or less per day ve ry little 02/25/2018 Last Documented On 8 4:05PM ; [facility] Non-smoker 02/25/2018 Last Documented On 8 4:05PM ; [facility] Not sexually active 02/25/2018 Last Documented On 8 4:05PM ; [facility] Smoking status : Never smoker 02/25/2018 Last Documented On 8 4:05PM ; [facility] Age of 1st intercourse was was 21 2015 Last Documented On 6 11:25AM ; [facility] control is being practiced 016 Last Documented On 6 11:25AM ; [facility] Denied sexual activity 02/10/2016 Last Documented On 6 11:25AM ; [facility] Education history 02/10/2016 Last Documented On 6 11:25AM ; [facility] Not using alcohol 02/10/2016 Last Documented On 6 11:25AM ; [facility] Personal history 02/10/2016 Last Documented On 6 11:25AM ; [facility] Sexually active with 1 partners in the l ast year 02/10/2016 Last Documented On 6 11:25AM ; [facility] Single 02/10/2016 Last Documented On 6 11:25AM ; [facility] Social history unchanged 02/10/2016 Last Documented On 6 11:25AM ; [facility] Procedures and Surgical History Surgical History Last Updated Surgical / procedural histor y Silverman catheter September 25, 1991 ~Lumpectomy April 21, 2013 ~Powerport placed May 19, 2013 12/10/2014 Last Documented On 5 9:12AM ; [facility] No Bilateral salpingo-oophorectomy 11/15 Last Documented On 1 9:39AM ; [facility] No Breast Biopsy 11/15/2010 Last Documented On 1 9:39AM ; [facility] No Dilation + Curettage 11/15/2010 Last Documented On 1 9:39AM ; [facility] No Ectopic surgery 11/15/2010 Last Documented On 1 9:39AM ; [facility] No Endometrial Ablation 11/15/2010 Last Documented On 1 9:39AM ; [facility] No history of appendectomy 11/15/2010 Last Documented On 1 9:39AM ; [facility] No history of cholecystectomy 11/15/2010 Last Documented On 1 9:39AM ; [facility] No history of Loop electrode excision of cervix (LEEP) 11/15/2010 Last Documented On 1 9:39AM ; [facility] No history of total abdominal hysterecto my 11/15/2010 Last Documented On 1 9:39AM ; [facility] No history of tubal ligation 11/15/2010 Last Documented On 1 9:39AM ; [facility] No history of vaginal hysterectomy 11/15 Last Documented On 1 9:39AM ; [facility] No Laparoscopic Hysterectomy 11/15/2010 Last Documented On 1 9:39AM ; [facility] No Ovarian Cystectomy 11/15/2010 Last Documented On 1 9:39AM ; [facility] No Tonsillectomy 11/15/2010 Last Documented On 1 9:39AM ; [facility] Medical History Includes: Medical History in patient's chart Description Last Updated A colonoscopy was performed 2011 018 Last Documented On 8 4:05PM ; [facility] Contraception: none 02/25/2018 Last Documented On 8 4:05PM ; [facility] Last mammogram date: 02/201702/25/2018 Last Documented On 8 4:05PM ; [facility] Patient recently had a dexa scan none Last Documented On 8 4:05PM ; [facility] Result: normal [facility] 02/06 Last Documented On 8 4:05PM ; [facility] 2 02/25/2018 Last Documented On 8 4:05PM ; [facility] Last pap smear date 02/10/2016 02/25/2018 Last Documented On 8 4:05PM ; [facility] LMP: 201202/25/2018 Last Documented On 8 4:05PM ; [facility] Para 2 02/25/2018 Last Documented On 8 4:05PM ; [facility] Result: normal 02/19/2017 Last Documented On 7 4:11PM ; [facility] hx of breast CA 02/10/2016 Last Documented On 6 11:25AM ; [facility] Leukemia AML ~Silverman Catheter 6 Last Documented On 6 11:25AM ; [facility] 2 living children 02/10/2016 Last Documented On 6 11:25AM ; [facility] A breast self-exam was performed 016 Last Documented On 6 11:25AM ; [facility] Condoms 02/10/2016 Last Documented On 6 11:25AM ; [facility] History of chronic reflux esophagitis Last Documented On 6 11:25AM ; [facility] History of hyperthyroidism 02/10/2016 Last Documented On 6 11:25AM ; [facility] History of leukemia 02/10/2016 Last Documented On 6 11:25AM ; [facility] History of thyroid disorder 02/10/2016 Last Documented On 6 11:25AM ; [facility] No recent change in medical history 02/2016 Last Documented On 6 11:25AM ; [facility] Oral contraceptives 02/10/2016 Last Documented On 6 11:25AM ; [facility] Result: abnormal ascus. neg hr hpv 02/09 Last Documented On 6 11:25AM ; [facility] Result: abnormal Bx performed, Ductal Ca rcinoma of R breast 02/10/2016 Last Documented On 6 11:25AM ; [facility] Vaginal delivery 02/10/2016 Last Documented On 6 11:25AM ; [facility] Family History Includes: Family History in patient's chart Description Last Updated Family history of malignant female breast neoplasm pt had breast cancer April 2013 02/10/2016 Last Documented On 6 11:25AM ; [facility] no family hx of breast CA ~DM--mother an d PGM 12/10/2014 Last Documented On 5 9:12AM ; [facility] Family history unchanged 12/10/2014 Last Documented On 5 9:12AM ; [facility] No family history of malignant neoplasm of the large intestine 12/10/2014 Last Documented On 5 9:12AM ; [facility] No family history of malignant neoplasm of the ovary 12/10/2014 Last Documented On 5 9:12AM ; [facility] Family history of diabetes m ellitus mother, maternal grandmother and paternal grandmother 03/25/2013 Last Documented On 3 10:32AM ; [facility] No family history of hypercholesterolemi a 11/15/2010 Last Documented On 1 9:39AM ; [facility] No family history of hypertension 2010 Last Documented On 1 9:39AM ; [facility] No family history of uterine cancer 05/2011 Last Documented On 1 9:39AM ; [facility] No heart disease 11/15/2010 Last Documented On 1 9:39AM ; [facility] Family history of Diabetes 10/04/2009 Last Documented On 9 11:48AM ; [facility] Family medical history of high blood pre ssure ~Hyperlipidemia 10/04/2009 Last Documented On 9 11:48AM ; [facility] Review of Systems Review of Systems not [...] Patient Last Documented On 2 11:09AM ; [facility] Td 1 Complete (Reported) Susanne ent Last Documented On 1 9:38AM ; [facility] Allergies Includes: Active, inactive, and resolved Allergies Substance Type Reaction Onset Date Resolved Date Statu s Zithromax Allergy 12/04/2013 Active Last Documented On 8 3:39PM ; [facility] Levaquin Allergy 12/04/2013 Active Last Documented On 8 3:39PM ; [facility] Codeine Allergy 10/04/2009 Active Last Documented On 8 3:39PM ; [facility] Clinical Notes Includes: Signed Clinical Notes starting from 10/27/2022 No Clinical Notes Recorded
--- OUTSIDE RECORDS SUMMARY | 2025-01-29 02:25 | XMS_ITS ---
Author Organization [facility] Address [address] [place] [address] Care Team Providers Care Squad Leader Name Role Phone Leslie Parker MD Unavailable [phone] Rima Peraza MD Unavailable [phone] Tata Bang MD Unavailable [phone] Messi Goff MD Unavailable Messi Saunders MD Primary Care Provider [phone] Active Problems Problem Noted Date Diagnosed Date [...]
--- OUTSIDE RECORDS SUMMARY | 2025-01-29 02:25 | XMS_ITS | Clinical Summary ---
Author Organization [facility] Address [address] [place] [address] Phone Care Team Providers Care Freight Rate Clerk Name Role Phone Unavailable Unavailable Unavailable Reason for Visit and Chief Complaint The Chief Complaint is: Annual Exam Problems Includes: Problems addressed during this encounter and other active Problems All Visits Onset Date Resolved Date Provider Condition S tatus Drug Toxicity Chemotherapeutics 12/04/2013 BEKA LUONG MD Active Last Documented On 4 11:15AM ; [facility] History of Ductal Ynftwweoy-ve-fvtw of the Breast 12/04/2013 BEKA LUONG MD Active Last Documented On 4 11:10AM ; [facility] Note: R breastDr. Weiner oncologist Irregular Menstrual Bleeding 03/25/2013 BEKA LUONG MD Active Last Documented On 3 9:54AM ; [facility] HEARTBURN 11/17/2011 JEFRY SALAZAR M.D. A ctive Last Documented On 2 10:51AM ; [facility] DISORDER OF THYROID NOS 02/14/2011 JEFRY GARRETT M.D. Active Last Documented On 1 9:08AM ; [facility] Plan of Treatment We reviewed current pap [...] - Last Documented On 02/19/2017 4:11PM ; [facility] Instructions to patient Instructions for patient : B reast Self Exam discussed Last Documented On 7 3:51PM ; [facility] Education and Decision Aids were provided during visit for: Patient education : Last Documented On 7 3:51PM ; [facility] STD screening offered and de clined Last Documented On 7 3:51PM ; [facility] Assessments Includes: Assessments from this encounter Findings - Routine pelvic exam - Last Documented On 02/19/2017 4:11PM ; [facility] Instructions Includes: Instructions from this encounter Instructions to patient Instructions for patient : B reast Self Exam discussed Last Documented On 7 3:51PM ; [facility] Education and Decision Aids were provided during visit for: Patient education : Last Documented On 7 3:51PM ; [facility] STD screening offered and de clined Last Documented On 7 3:51PM ; [facility] Medical Equipment - Implanted Devices Includes: Current Devices No Medical Equipment Recorded Medications Includes: Medications discussed during this encounter and other current Medications Discontinued / Stopped on this date on 02/10/2016 Mirtazapine 30 MG Tablet Provider: Diagnosis: Last Documented On 02/19/2017 3:47PM By ELIAS JARQUIN LPN ; [facility] Pantoprazole Sodium 40 MG OR TBEC Provide r: SALEEM DUMONT MD Diagnosis: Last Documented On 02/19/2017 3:47PM By ELIAS JARQUIN LPN ; [facility] Current Medications (continue as prescribed) [facility] Melatonin 10MG Oral Capsule, conventional 02/26/20 18 Provider: Diagnosis: Last Documented On 8 3:39PM By NATIVIDAD COTA ; [facility] Pepcid 20MG Oral Tablet 02/19/2017 Provider: Diagnosis: Last Documented On 02/19/2017 3:48PM By ELIAS JARQUIN LPN ; [facility] Vitamin D3 1000UNIT Oral Tablet Chewable 7 Provider: Diagnosis: Last Documented On 02/19/2017 3:48PM By ELIAS JARQUIN LPN ; [facility] Vitamin C 1000MG Oral Tablet Chewable 02/19/2017 Provider: Diagnosis: Last Documented On 02/19/2017 3:48PM By ELIAS JARQUIN LPN ; [facility] Tamoxifen Citrate 10 MG OR TABS 12/04/2013 Provider: Diagnosis: Last Documented On 12/04/2013 11:10AM By ALAINA JOSHUA LPN ; [facility] Levothyroxine Sodium 75 MCG OR TABS 11/17/2011 Provi marylu: Diagnosis: Last Documented On 2 11:10AM By DR. JEFRY SALAZAR ; [facility] Past Medications on file Anusol-HC 2.5% RE CREA 11/17/2011 - 03/16/2012 Provide r: JEFRY SALAZAR M.D. Diagnosis: HEMORRHOIDS NOS apply PRN Last Documented On 2 11:15AM By DR. JEFRY SALAZAR ; [facility] LO-LOESTRIN FE 10/17/ MG/MCG MT TABS 11/15/2010 - 03/15/2011 Provider: JEFRY SALAZAR M.D. Diagnosis: OTHER FAMILY TINY NNING ADVICE NEC Last Documented On 1 9:38AM By DR. JEFRY SALAZAR ; [facility] Mircette 0.15-0.02/0.01 MG (25/02) OR TABS 10/22/2008 - 10/17/2009 Provider: Diagnosis: Last Documented On 9 11:44AM By DEENA MALLOY ; [facility] Medications Administered Includes: Administered Medications from this encounter No Administered Medications Recorded Vital Signs Includes: Vital Signs from this encounter Vital Name 02/19/2017 03:44P Blood Pressure Sitting (mmHg) 130/68 Height (in) 58 Weight (lb) 126.8 Body Mass Index (kg/m2) 26.5 Body Surface Area (m2) 1.5 Last Documented: On 02/19/2017 3:46PM ; [facility] Results Includes: Results discussed during this encounter [...] 02/19/2017 Last Documented On 7 4:11PM ; [facility] Alcohol use: 2 drinks or less per day oc c 02/19/2017 Last Documented On 7 4:11PM ; [facility] Not sexually active 02/19/2017 Last Documented On 7 4:11PM ; [facility] Non-smoker 02/19/2017 Last Documented On 7 4:11PM ; [facility] Smoking Status Unknown Procedures and Surgical History Includes: Procedures from this encounter Procedures Code Diagnosis Performing Provider Service L ocation Service Date Clinical summary provided to patient Last Documented On 7 3:51PM ; [facility] Medical History Includes: Medical History addressed during this encounter Description Last Updated Contraception: none 02/19/2017 Last Documented On 7 4:11PM ; [facility] LMP: 201202/19/2017 Last Documented On 7 4:11PM ; [facility] 2 02/19/2017 Last Documented On 7 4:11PM ; [facility] Last mammogram date: 02/01/2016 7 Last Documented On 7 4:11PM ; [facility] Last pap smear date 02/10/2016 02/19/2017 Last Documented On 7 4:11PM ; [facility] Para 2 02/19/2017 Last Documented On 7 4:11PM ; [facility] Result: normal 02/19/2017 Last Documented On 7 4:11PM ; [facility] Family History Includes: Family History addressed during this encounter Description Last Updated Family history of malignant female breast neoplasm pt had breast cancer April 2013 02/10/2016 Last Documented On 7 3:40PM ; [facility] no family hx of breast CA ~DM--mother an d PGM 12/10/2014 Last Documented On 7 3:40PM ; [facility] Family history unchanged 12/10/2014 Last Documented On 7 3:40PM ; [facility] No family history of malignant neoplasm of the large intestine 12/10/2014 Last Documented On 7 3:40PM ; [facility] No family history of malignant neoplasm of the ovary 12/10/2014 Last Documented On 7 3:40PM ; [facility] Family history of diabetes m ellitus mother, maternal grandmother and paternal grandmother 03/25/2013 Last Documented On 7 3:40PM ; [facility] No family history of hypercholesterolemi a 11/15/2010 Last Documented On 7 3:40PM ; [facility] No family history of hypertension 2010 Last Documented On 7 3:40PM ; [facility] No family history of uterine cancer 05/2011 Last Documented On 7 3:40PM ; [facility] No heart disease 11/15/2010 Last Documented On 7 3:40PM ; [facility] Family history of Diabetes 10/04/2009 Last Documented On 7 3:40PM ; [facility] Family medical history of high blood pre ssure ~Hyperlipidemia 10/04/2009 Last Documented On 7 3:40PM ; [facility] Review of Systems Includes: Review of Systems [...] Last Documented On 8 3:39PM ; [facility] Levaquin Allergy 12/04/2013 Active Last Documented On 8 3:39PM ; [facility] Codeine Allergy 10/04/2009 Active Last Documented On 8 3:39PM ; [facility] Encounters Encounter Provider Location Date Check-In Time Check-Out Time Diagnosis ACID ETCH OPERATOR EXAM BEKA LUONG MD [facility] WIRE SPIRAL BINDER 7 3:39PM 4:10PM Routine Pelvic Exam Clinical Notes Includes: Clinical Notes from this encounter No Clinical Notes Recorded
--- OUTSIDE RECORDS SUMMARY | 2025-01-29 02:25 | XMS_ITS | Clinical Summary ---
Author Organization [facility] Address [address] [place] [address] Phone Care Team Providers Care Fibre Optics Jointer Name Role Phone Unavailable Unavailable Unavailable Reason for Visit and Chief Complaint BEN DAY ARTIST EXAM Problems Includes: Problems addressed during this encounter and other active Problems All Visits Onset Date Resolved Date Provider Condition S tatus Drug Toxicity Chemotherapeutics 12/04/2013 BEKA LUONG MD Active Last Documented On 4 11:15AM ; [facility] History of Ductal Agjbnyqkl-tg-fktf of the Breast 12/04/2013 BEKA LUONG MD Active Last Documented On 4 11:10AM ; [facility] Note: Dr. Regine Sethi oncologist Irregular Menstrual Bleeding 03/25/2013 BEKA LUONG MD Active Last Documented On 3 9:54AM ; [facility] HEARTBURN 11/17/2011 JEFRY SALAZAR [...] 02/19/2017 3:47PM By ELIAS JARQUIN LPN ; [facility] Pantoprazole Sodium 40 MG OR TBEC Provide r: SALEEM DUMONT MD Diagnosis: Last Documented On 02/19/2017 3:47PM By ELIAS JARQUIN LPN ; [facility] Current Medications (continue as prescribed) [facility] Melatonin 10MG Oral Capsule, conventional 02/26/20 18 Provider: Diagnosis: Last Documented On 8 3:39PM By NATIVIDAD COTA ; [facility] Pepcid 20MG Oral Tablet 02/19/2017 Provider: Diagnosis: Last Documented On 02/19/2017 3:48PM By ELIAS JARQUIN LPN ; [facility] Vitamin D3 1000UNIT Oral Tablet Chewable 7 Provider: Diagnosis: Last Documented On 02/19/2017 3:48PM By ELIAS JARQUIN LPN ; [facility] Vitamin C 1000MG Oral Tablet Chewable 02/19/2017 Provider: Diagnosis: Last Documented On 02/19/2017 3:48PM By ELIAS JARQUIN LPN ; [facility] Tamoxifen Citrate 10 MG OR TABS 12/04/2013 Provider: Diagnosis: Last Documented On 12/04/2013 11:10AM By ALAINA JOSHUA LPN ; [facility] Levothyroxine Sodium 75 MCG OR TABS 11/17/2011 Provi marylu: Diagnosis: Last Documented On 2 11:10AM By DR. JEFRY SALAZAR ; [facility] Medications [...] Active Last Documented On 8 3:39PM ; [facility] Levaquin Allergy 12/04/2013 Active Last Documented On 8 3:39PM ; [facility] Codeine Allergy 10/04/2009 Active Last Documented On 8 3:39PM ; [facility] Clinical Notes Includes: Clinical Notes from this encounter No Clinical Notes Recorded
--- OUTSIDE RECORDS SUMMARY | 2025-01-29 02:25 | XMS_ITS ---
Care Plan - [facility] Created on: January 29, 2025 ELSA ZAMORA : 1970 Sex: Female Author Organization [facility] Address [address] [place] [address] Phone Care Team Providers Care Fur Farmer Name Role Phone Unavailable Unavailable Unavailable
--- OUTSIDE RECORDS SUMMARY | 2025-01-29 02:25 | XMS_ITS | Clinical Summary ---
Author Organization [facility] Address [address] [place] [address] Care Team Providers Care Betting Agency Counter Clerk Name Role Phone Leslie Parker MD Unavailable [phone] Rima Peraza MD Unavailable [phone] Tata Bang MD Unavailable [phone] Messi Goff MD Unavailable Messi Saunders MD Primary Care Provider [phone] Source Comments [facility],non-owned Affiliates and Associated Physician Practices is amultiple site organization consisting of ambulatory clinics and hospital sitesin [place], [place], [place] and [place]. This disclosure is being madepursuant to the Care Everywhere program and may not contain all information available regarding this patient. Last updated 18.[facility] Allergies Active Allergy Reactions Criticality Noted Date [...] treated with chemo: 09/1991-- 02/1995 In remission Family History Medical History Relation Name Comments [...] AM CDT Legal Sex Female 1:26 PM MANUFACTURING STOREPERSON Gender Identity Female 12/19/2022 6:12 AM CDT Sexual Orientation Choose not to disclose 2022 6:12 AM CDT Last Filed Vital Signs Vital Sign Reading Time Taken Comments Blood Pressure 126/86 08/27/2024 10:07 AM MANUFACTURING STOREPERSON Pulse 79 08/27/2024 10:07 AM MANUFACTURING STOREPERSON Temperature 36.7 C (98 F) 04/03/2024 11:08 AM CDT Respiratory Rate 18 04/03/2024 11:08 AM CDT Oxygen Saturation 98% 08/27/2024 10:07 AM MANUFACTURING STOREPERSON Inhaled Oxygen Concentration - - Weight 62.1 kg (137 lb) 08/27/2024 10:07 AM MANUFACTURING STOREPERSON Height 149.9 cm (4' 11 ) 08/27/2024 10:07 AM MANUFACTURING STOREPERSON Body Mass Index 27.67 08/27/2024 10:07 AM MANUFACTURING STOREPERSON Plan of Treatment Upcoming Encounters Date Type Department Care Team (Late st Contact Info) Description 08/27/2025 10:00 AM MANUFACTURING STOREPERSON Office Visit [facility] - Endocrinology [id number] [place] [address], [address] [place] [id number] [place] [id number] [place] [address] [address] [place] [address] Health Maintenance Due Date Last Done Comments [...] Resulting Agency Comment Lab Testing performed at: [facility] [address] [facility] [id number] Arianna Wilcox INFORMATION TECHNOLOGY ASSISTANT-OUTPATIENT FACILITY PHYSICAL THERAPIST LAB - CHEMISTRY ORD ERABLES Final Result [facility] ACCOUNT BILL [address] [place] [address] from Last 3 Months or Most Recently Relevant to Health Maintenance Insurance [facility] Care Teams Betting Agency Counter Clerk Relationship Specialty [place] [address] [phone] PCP - General Internal Medicine 09/10/24 Leslie Parker MD Obstetrics and Gynecology 01/15/14 [place] [id number] [facility] [address] [place] [address] Endocrinology 01/25/15 [place] [address] [place] [address] Surgical Oncology 07/27/16 [place] [address] [place] [address] Gastroenterology 08/28/19
--- OUTSIDE RECORDS SUMMARY | 2025-01-29 02:25 | XMS_ITS | Encounter Summary ---
Author Organization [facility] Address [address] [place] [address] Care Team Providers Care Processing Clerk Name Role Phone Sharifa Sin Primary Care Provider [phone] Leslie Parker MD Unavailable [phone] Tata Bang MD Unavailable [phone] Rima Peraza MD Unavailable [phone] Gael Yanes MD Unavailable Kenny Ansari MD Unavailable [phone] Messi Goff MD Unavailable [phone] Messi Saunders MD Primary Care Provider Kenny Ansari MD Unavailable [phone] Encounter Details Date Type Department Care Team (Late st Contact Info) Description 06/30/2019 Documentation [facility]icians [address] [facility] [address] [place] [address] Lary Gant MD [facility] [address] [place] [address] Social History Tobacco Use Types Packs/Day Years Used Date Smoking Tobacco: Never Smokeless Tobacco: Never Alcohol Use Standard Drinks/Week Comments Not Currently 0 (1 standard drink = 0.6 oz pur e alcohol) rarely PHQ-2 Answer Date Recorded PHQ-2 Score 0 05/28/2019 Comments No Sex and Gender Information Value Date Recorded Sex Assigned at Not on file Legal Sex Female 10:29 AM ROUND BONER Gender Identity Female 10/19/2022 10:44 AM ROUND BONER Sexual Orientation Not on file documented as [...] COVID: Suspected 10/02/2023 10/02/2023 10/02/2023 8:50 AM ROUND BONER COVID: Suspected 07/15/2024 07/15/2024 07/15/2024 10:38 AM CDT documented as of this encounter Care Teams Processing Clerk Relationship Specialty Start Date End Date Merrick Sharifa DO Herminio PCP - General 05/27/19 12/14/22 [place] [id number] [address] PCP - General Internal Medicine 12/15/22 Leslie Parker MD Nurse Staff Obstetrics and Gynecology 07/07/19 Tata Bang MD Surgeon Surgical Oncology 07/07/19 [place] [address] [address] Referring Physician Endocrinology Diabetes & Metabolism 09/01/19 [place] [address] [place] [address] Consulting Physician Medical Oncology 11/07/19 02/09/20 [place] [address] [place] [address] Medical Oncologist/Hematologis t Hematology and Oncology 02/10/20 01/16/23 Messi Goff MD [address] [facility] [address] [place] [address] Consulting Physician Gastroenterology 11/17/21 [place] [id number] [address] Medical Oncologist/Hematologis t Hematology and Oncology 01/17/23 documented as of this encounter
--- OUTSIDE RECORDS SUMMARY | 2025-01-29 02:25 | XMS_ITS | Encounter Summary ---
Author Organization [facility] Address [address] [place] [address] Care Team Providers Care Aircraft Mechanic Name Role Phone Leslie Parker MD Unavailable [phone] Rima Peraza MD Unavailable Tata Bang MD Unavailable [phone] Messi Goff MD Unavailable Messi Saunders MD Primary Care Provider Encounter Details Date Type Department Care Team (Late st Contact Info) Description 03/13/2022 [facility] Outpatient Visit Infusion [facility] [id number] [place] [address] [address] [place] [address] [place] [address] [facility] [address] [place] [address] Social History Tobacco Use Types Packs/Day Years Used Date Smoking Tobacco: Never Smokeless Tobacco: Never Alcohol Use Standard Drinks/Week Comments No 0 (1 standard drink = 0.6 oz pur e alcohol) Comments No Sex and Gender Information Value Date Recorded Sex Assigned at Female 12/19/2022 6:12 AM CDT Legal Sex Female 1:26 PM SURGICAL SUPPLIES STERILIZER Gender Identity Female 12/19/2022 6:12 AM CDT Sexual Orientation Choose not to disclose 2022 6:12 AM CDT documented as of this encounter Plan of Treatment Upcoming Encounters Date Type Department Care Team (Late st Contact Info) Description 08/27/2025 10:00 AM SURGICAL SUPPLIES STERILIZER Office Visit [facility] - Endocrinology [address] [facility], [address] [phone] [place] [id number] [address] documented as of this encounter Visit Diagnoses Not on filedocumented in this encounter Care Teams Aircraft Mechanic Relationship Specialty [place] [address] [phone] PCP - General Internal Medicine 09/10/24 Leslie Parker MD Obstetrics and Gynecology 01/15/14 Rima [place] [id number] [place] [address] Endocrinology 01/25/15 [place] [address] [address] Surgical Oncology 07/27/16 Mess[place] Goff [place] [id number] [place] [address] Gastroenterology 08/28/19 documented as of this encounter
--- OUTSIDE RECORDS SUMMARY | 2025-01-29 02:25 | XMS_ITS | Clinical Summary ---
Author Organization [facility] Address [address] [place] [address] Phone Care Team Providers Care Senior Account Representative Name Role Phone Unavailable Unavailable Unavailable Reason for Visit and Chief Complaint The Chief Complaint is: Annual exam Problems Includes: Problems addressed during this encounter and other active Problems All Visits Onset Date Resolved Date Provider Condition S tatus Drug Toxicity Chemotherapeutics 12/04/2013 BEKA LUONG MD Active Last Documented On 4 11:15AM ; [facility] History of Ductal Nhaqtfjfq-sk-komw of the Breast 12/04/2013 BEKA LUONG MD Active Last Documented On 4 11:10AM ; [facility] Note: R breastDr. Weiner oncologist Irregular Menstrual Bleeding 03/25/2013 BEKA LUONG MD Active Last Documented On 3 9:54AM ; [facility] HEARTBURN 11/17/2011 JEFRY SALAZAR M.D. A ctive Last Documented On 2 10:51AM ; [facility] DISORDER OF THYROID NOS 02/14/2011 JEFRY GARRETT M.D. Active Last Documented On 1 9:08AM ; [facility] Plan of Treatment She is 5 years out from breast cancer and now has been recommended to take Tamoxifen for a total of 10 years - Last Documented On 02/25/2018 4:05PM ; [facility] Instructions to patient Instructions for patient : B reast Self Exam discussed Last Documented On 8 4:03PM ; [facility] Education and Decision Aids were provided during visit for: Patient education : Last Documented On 8 4:03PM ; [facility] STD screening offered and de clined Last Documented On 8 4:03PM ; [facility] Assessments Includes: Assessments from this encounter Findings - Routine pelvic exam - Last Documented On 02/25/2018 4:05PM ; [facility] Instructions Includes: Instructions from this encounter Instructions to patient Instructions for patient : B reast Self Exam discussed Last Documented On 8 4:03PM ; [facility] Education and Decision Aids were provided during visit for: Patient education : Last Documented On 8 4:03PM ; [facility] STD screening offered and de clined Last Documented On 8 4:03PM ; [facility] Medical Equipment - Implanted Devices Includes: Current Devices No Medical Equipment Recorded Medications Includes: Medications discussed during this encounter and other current Medications Current Medications (continue as prescribed) [facility] Melatonin 10MG Oral Capsule, conventional 02/26/20 18 Provider: Diagnosis: Last Documented On 8 3:39PM By NATIVIDAD COTA ; [facility] Pepcid 20MG Oral Tablet 02/19/2017 Provider: Diagnosis: Last Documented On 02/19/2017 3:48PM By ELIAS JARQUIN LPN ; [facility] Vitamin D3 1000UNIT Oral Tablet Chewable 7 Provider: Diagnosis: Last Documented On 02/19/2017 3:48PM By ELIAS JARQUIN LPN ; [facility] Vitamin C 1000MG Oral Tablet Chewable 02/19/2017 Provider: Diagnosis: Last Documented On 02/19/2017 3:48PM By ELIAS JARQUIN LPN ; [facility] Tamoxifen Citrate 10 MG OR TABS 12/04/2013 Provider: Diagnosis: Last Documented On 12/04/2013 11:10AM By ALAINA JOSHUA LPN ; [facility] Levothyroxine Sodium 75 MCG OR TABS 11/17/2011 Provi marylu: Diagnosis: Last Documented On 2 11:10AM By DR. JEFRY SALAZAR ; [facility] Past Medications on file Anusol-HC 2.5% RE CREA 11/17/2011 - 03/16/2012 Provide r: JEFRY SALAZAR M.D. Diagnosis: HEMORRHOIDS NOS apply PRN Last Documented On 2 11:15AM By DR. JEFRY SALAZAR ; [facility] LO-LOESTRIN FE 10/17/09 MG/MCG MT TABS 11/15/2010 - 03/15/2011 Provider: JEFRY SALAZAR M.D. Diagnosis: OTHER FAMILY TINY NNING ADVICE NEC Last Documented On 1 9:38AM By DR. JEFRY SALAZAR ; [facility] Mircette 0.15-0.02/0.01 MG (25/02) OR TABS 10/22/2008 - 10/17/2009 Provider: Diagnosis: Last Documented On 9 11:44AM By DEENA MALLOY ; [facility] Medications Administered Includes: Administered Medications from this encounter No Administered Medications Recorded Vital Signs Includes: Vital Signs from this encounter Vital Name 02/25/2018 03:35P Blood Pressure Sitting (mmHg) 104/76 Height (in) 58 Weight (lb) 139 Body Mass Index (kg/m2) 29.1 Body Surface Area (m2) 1.6 Last Documented: On 02/25/2018 3:40PM ; [facility] Results Includes: Results discussed during [...] to have kids. She is currently in [facility] with a brain aneurysm Social History Description Last Updated In monogamous relationship 02/25/2018 Last Documented On 8 4:05PM ; [facility] Alcohol use: 2 drinks or less per day ve ry little 02/25/2018 Last Documented On 8 4:05PM ; [facility] Non-smoker 02/25/2018 Last Documented On 8 4:05PM ; [facility] Not sexually active 02/25/2018 Last Documented On 8 4:05PM ; [facility] Smoking status : Never smoker 02/25/2018 Last Documented On 8 4:05PM ; [facility] Procedures and Surgical History Includes: Procedures from this encounter Procedures Code Diagnosis Performing Provider Service L ocation Service Date Clinical summary provided to patient Last Documented On 8 4:03PM ; [facility] cervical Pap smear 58580 Last Documented On 8 4:03PM ; [facility] Medical History Includes: Medical History addressed during this encounter Description Last Updated A colonoscopy was performed 2011 018 Last Documented On 8 4:05PM ; [facility] Contraception: none 02/25/2018 Last Documented On 8 4:05PM ; [facility] Last mammogram date: 02/201702/25/2018 Last Documented On 8 4:05PM ; [facility] Patient recently had a dexa scan none Last Documented On 8 4:05PM ; [facility] Result: normal Wash [facility] 02/06 Last Documented On 8 4:05PM ; [facility] 2 02/25/2018 Last Documented On 8 4:05PM ; [facility] Last pap smear date 02/10/2016 02/25/2018 Last Documented On 8 4:05PM ; [facility] LMP: 201202/25/2018 Last Documented On 8 4:05PM ; [facility] Para 2 02/25/2018 Last Documented On 8 4:05PM ; [facility] Family History Includes: Family History addressed during this encounter Description Last Updated Family history of malignant female breast neoplasm pt had breast cancer April 2013 02/10/2016 Last Documented On 8 3:34PM ; [facility] no family hx of breast CA ~DM--mother an d PGM 12/10/2014 Last Documented On 8 3:34PM ; [facility] Family history unchanged 12/10/2014 Last Documented On 8 3:34PM ; [facility] No family history of malignant neoplasm of the large intestine 12/10/2014 Last Documented On 8 3:34PM ; [facility] No family history of malignant neoplasm of the ovary 12/10/2014 Last Documented On 8 3:34PM ; [facility] Family history of diabetes m ellitus mother, maternal grandmother and paternal grandmother 03/25/2013 Last Documented On 8 3:34PM ; [facility] No family history of hypercholesterolemi a 11/15/2010 Last Documented On 8 3:34PM ; [facility] No family history of hypertension 2010 Last Documented On 8 3:34PM ; [facility] No family history of uterine cancer 05/2011 Last Documented On 8 3:34PM ; [facility] No heart disease 11/15/2010 Last Documented On 8 3:34PM ; [facility] Family history of Diabetes 10/04/2009 Last Documented On 8 3:34PM ; [facility] Family medical history of high blood pre ssure ~Hyperlipidemia 10/04/2009 Last Documented On 8 3:34PM ; [facility] Review of Systems Includes: Review of [...] Active Last Documented On 8 3:39PM ; [facility] Levaquin Allergy 12/04/2013 Active Last Documented On 8 3:39PM ; [facility] Codeine Allergy 10/04/2009 Active Last Documented On 8 3:39PM ; [facility] Encounters Encounter Provider Location Date Check-In Time Check-Out Time Diagnosis 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
--- NOTE | 2025-01-29 12:30 | PM.IMHP ---
H&P: HPI History of Present Illness Date/Time: 01/29/25 12:30 Chief Complaint: Thickened endometrium on pelvic US h/o tamoxifen use Narrative: 54-year-old female who presents for hysteroscopy D&C to evaluate endometrial thickness. Patient has a history of tamoxifen use. She denies any abnormal bleeding. Pelvic ultrasound showed a thickened and irregular endometrium. Review of Systems Cardiovascular: Cardiovascular: Denies chest pain, Denies leg edema, Denies palpitations, Denies dyspnea and Denies dyspnea on exertion Respiratory: Respiratory: Denies cough, Denies dyspnea and Denies dyspnea on exertion Gastrointestinal: Gastrointestinal: Denies abdominal pain, Denies constipation, Denies diarrhea, Denies nausea and Denies vomiting Genitourinary: Genitourinary: Denies hematuria, Denies urinary frequency, Denies dysuria, Denies pelvic pain, Denies urinary incontinence and Denies vaginal discharge Neurologic: Reports system reviewed and no additional complaints, except as documented Psychiatric: Psychiatric: Reports no additional psychiatric complaints Endocrine: Endocrine: Denies palpitations PMFSH Past Medical History Medical History Vaginal delivery x2 Hypothyroidism Breast cancer Stage 2, Right breast ALL (acute lymphoblastic leukemia) Anxiety Depression Acid reflux Surgical History Surgical History History of cholecystectomy History of lumpectomy 2012, right breast History of colposcopy Family History Family History Sibling Breast cancer Mother Diabetes mellitus Grandparent Acute myocardial infarction grandmother Father Hypertension Hypercholesteremia Cerebrovascular accident Social History Social History Smoking status: Never smoker Alcohol intake: never Substance use: former Substance use type: marijuana Other substance usage details: edibles Last use: quit a month ago. Do You Feel Safe in your Home?: Yes Lack of Transportation: No Lack of Food: Never True Current Housing: I Have Housing Concerned About Future Housing: No Difficulty Paying Gas/Electric Bills: No Difficulty Paying for Meds: No Currently Unemployed: No Education: Bachelor's Degree Difficulty w/ Childcare or Family Care: No Living arrangements: with family Additional living arrangements comments: children Occupation/Education: unemployed Gender identity (if verbalized by the patient): Female Sexual Orientation (if Verbalized by the Patient): Straight or Heterosexual Spiritual care concerns: No Meds Home Medications and Allergies Home Medications ?Medication ?Instructions ?Recorded ?Confirmed ?Type levothyroxine 75 mcg capsule 75 mcg PO DAILY 11/09/20 01/22/25 History melatonin 10 mg capsule See Rx Instructions PO .COMPLEX 11/09/20 01/22/25 History biotin 1 mg capsule 1 mg PO DAILY 11/15/21 01/22/25 History famotidine 20 mg tablet (Pepcid) 20 mg PO DAILY 11/15/21 01/22/25 History vit no.95-ferrous 1 tablet PO DAILY 01/22/25 01/22/25 History fumarate 28 mg-folic acid 800 mcg tablet () Allergies Allergy/AdvReac Type Severity Reaction Status Date / Time azithromycin (From Zithromax) Allergy Intermediate Hives Verified 01/22/25 08:50 codeine Allergy Intermediate Hives Verified 01/22/25 08:50 pantoprazole Allergy Mild Nausea Verified 01/22/25 08:50 levofloxacin (From Levaquin) AdvReac Intermediate Nausea Verified 01/22/25 08:50 Exam Const: General: no acute distress Eyes: EOM: EOMs intact bilaterally Neck: Neck: supple Thyroid: thyroid normal Chest: Breast/axilla inspection: normal inspection of the breasts Breast/axilla palpation: normal palpation of the breasts, normal palpation of the axillae and no axillary lymphadenopathy Resp: Effort & Inspection: normal respiratory effort Auscultation: clear to auscultation bilaterally Cardio: Rate: regular rate Rhythm: regular rhythm GI: Inspection: non-distended GI Palp: Yes Soft to palpation, No Tenderness to palpation present (GI) and No Guarding due to palpation present (GI) Auscultation: normal bowel sounds : General: No bladder normal to palpation External Female Exam: normal external appearance Speculum Exam - Vagina: normal vaginal discharge and No vaginal bleeding Speculum Exam - Cervix: nontender Bimanual exam- vagina & uterus: No bladder normal to palpation and No Cervical tenderness present OB/external & speculum: No vaginal bleeding Skin: General skin exam: normal color and no rashes or lesions noted Neuro: Cognition (Neuro): normal cognition Speech: normal speech Extrem: General: normal to inspection and no edema Psych: Mental Status: mental status grossly normal Affect: normal affect Assessment and Plan Assessment and plan (1) Endometrial thickening on ultrasound: Code(s): R93.89 - Abnormal findings on diagnostic imaging of other specified body structures Status: Acute Assessment and Plan: 54-year-old female who presents for hysteroscopy D&C to evaluate endometrium Patient has a history of breast cancer and tamoxifen use Patient denies any abnormal bleeding Pelvic ultrasound showed a thickened irregular endometrium at 10 mm Recommended endometrial sampling due to increased risk for uterine cancer with tamoxifen use Recommended hysteroscopy D&C Risks, benefits, alternatives reviewed Will plan for hysteroscopy, D&C for tissue sampling (2) Use of tamoxifen (Nolvadex): 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
--- NOTE | 2025-01-29 12:32 | WPDHPUPDATE1 ---
History and Physical Update Update Date/Time: 01/29/25 12:32 History and Physical has been reviewed, including an updated exam of the patient. There are NO changes in the patient's condition. Risks, benefits, and alternatives have been discussed and questions answered. Patient agrees to proceed with procedure.
--- NOTE | 2025-01-29 13:08 | WPDANESEPPF ---
Anes - Initial Pre Proc Eval Procedure: Operation Date: 01/29/25 14:00 Proposed Procedures p Hysteroscopy Dilation and Curettage - Aubrey Millan MD Date/Time: 01/29/25 13:08 Surgeon: Aubrey Millan MD Pre Op Diagnosis: Endometrial Hyperplasia Patient Data Age: 54 Gender: F Height: 1.49 m Weight: 63.6 kg Allergies Allergy/AdvReac Type Severity Reaction Status Date / Time azithromycin (From Zithromax) Allergy Intermediate Hives Verified 01/22/25 08:50 codeine Allergy Intermediate Hives Verified 01/22/25 08:50 pantoprazole Allergy Mild Nausea Verified 01/22/25 08:50 levofloxacin (From Levaquin) AdvReac Intermediate Nausea Verified 01/22/25 08:50 Home Medications ?Medication ?Instructions ?Recorded ?Confirmed ?Type levothyroxine 75 mcg capsule 75 mcg PO DAILY 11/09/20 01/22/25 History melatonin 10 mg capsule See Rx Instructions PO .COMPLEX 11/09/20 01/22/25 History biotin 1 mg capsule 1 mg PO DAILY 11/15/21 01/22/25 History famotidine 20 mg tablet (Pepcid) 20 mg PO DAILY 11/15/21 01/22/25 History vit no.95-ferrous 1 tablet PO DAILY 01/22/25 01/22/25 History fumarate 28 mg-folic acid 800 mcg tablet () Patient hx anesthesia problems: none Family hx anesthesia problems: none Results Review: All pre-operative results and documents have been reviewed as part of the pre-operative evaluation. [facility] Past Medical History Medical History Vaginal delivery x2 Hypothyroidism Breast cancer Stage 2, Right breast ALL (acute lymphoblastic leukemia) Anxiety Depression Acid reflux Surgical History Surgical History History of cholecystectomy History of lumpectomy 2012, right breast History of colposcopy Family History Family History Sibling Breast cancer Mother Diabetes mellitus Grandparent Acute myocardial infarction grandmother Father Hypertension Hypercholesteremia Cerebrovascular accident Social History Social History Smoking status: Never smoker Alcohol intake: never Substance use: former Substance use type: marijuana Other substance usage details: edibles Last use: quit a month ago. Do You Feel Safe in your Home?: Yes Lack of Transportation: No Lack of Food: Never True Current Housing: I Have Housing Concerned About Future Housing: No Difficulty Paying Gas/Electric Bills: No Difficulty Paying for Meds: No Currently Unemployed: No Education: Bachelor's Degree Difficulty w/ Childcare or Family Care: No Living arrangements: with family Additional living arrangements comments: children Occupation/Education: unemployed Gender identity (if verbalized by the patient): Female Sexual Orientation (if Verbalized by the Patient): Straight or Heterosexual Spiritual care concerns: No Anes - Eval Final PreProcedure Day of Procedure 01/29/25 13:08 Patient weight: obese Heart: regular rate and rhythm Lungs: clear to auscultation Airway: Mallampati scale class II Neurological: alert and oriented Last oral intake: >/= 8 hours ASA classification: III Emergent: no Anesthetic plan: proceed Anesthesia type and monitoring: general GIVS and standard monitoring Results Review: All pre-operative results and documents have been reviewed as part of the pre-operative evaluation. Informed Consent: The patient's anesthetic plan and its attendant risks and benefits were discussed with the patient/family/POA. Questions were solicited and answers provided to the satisfaction of the patient/family/POA.
[2025-01-29 13:18] VITALS: BP 143/84; PULSE 70; TEMP 36.1; O2SAT 98; BMI 29.0
[2025-01-29] MEDS: LACTATED RINGERS 1,000 ML 30 ML IV CONT (13:21)
[2025-01-29] MEDS: ACETAMINOPHEN 500 MG TABLET 1000 MG PO (13:21)
--- NOTE | 2025-01-29 13:56 | W.PM.PROC2 ---
Procedure Note - Detailed Date of Procedure 01/29/25 Pre-op Diagnosis thickened endometrium on US h/o Tamoxifen use Post-op Diagnosis Same Procedure Performed hysteroscopy dilation & curettage Surgeon Aubrey Millan MD Anesthesia General Indications abnormal uterine bleeding Findings stringy adhesion like tissues within the intrauterine cavity as well as some calcified lesions. Normal tubal ostia bilaterally Description of Procedure Edita Terry presents for the above procedure for thickened endometrium. She was counseled as to the indications, risks, benefits, and alternatives to surgery, with the risks including bleeding, infection, damage to surrounding organs, VTE, and complications of anesthesia. Her verbal and written consent was obtained. PROCEDURE: The patient was taken to the OR and general anesthesia induced. She was prepped and draped in Tyler stirrups with support of the back and bilateral lower extremities. I/O catheterization performed of the bladder. The above findings were noted. A single tooth tenaculum was placed on the anterior lip of the cervix. The cervix was dilated with sequential Yi dilators. Hysteroscopy, using a normal saline medium, was performed and showed the above findings. Sharp uterine curettage was then performed and tissue placed on Telfa. The tenaculum was removed and hemostasis was observed. The patient tolerated the procedure well. Sponge, lap, and needle counts were correct. The patient had SCD's on throughout the case for VTE prophylaxis. The patient was taken to the recovery room in stable condition. Estimated Blood Loss 5 Drains No Packing No Pathology Yes (endometrial curettings ) Complications No immediate complications Condition Stable Disposition PACU [facility] Billing Surgery - Charge Forward: Surgery Billing
[2025-01-29 13:57] VITALS: BP 112/48; PULSE 76; RESP 12; O2SAT 95
[2025-01-29 14:27] VITALS: BP 91/55; PULSE 69; RESP 12; O2SAT 95
[2025-01-29] MEDS: ONDANSETRON INJ 4 MG/2 ML VIAL IV PUSH (14:43)
[2025-01-29 14:45] VITALS: BP 115/63; PULSE 68; RESP 18
[2025-01-29 15:06] VITALS: BP 109/56; PULSE 73; RESP 16
== END 2025-01-29 15:20 | disposition home or self-care (01) ==
PROVIDERS: PCP Internal Medicine; Visit Provider Student in an Organized Health Care Education/Training Program
PROC: 0U5B8ZZ Destruction of Endometrium, Via Natural or Artificial Opening Endoscopic (ICD-10-PCS; CPT 58563; principal; 2025-01-29 14:00)
DX: N93.9 Abnormal uterine and vaginal bleeding, unspecified (principal); Z79.810 Long term (current) use of selective estrogen receptor modulators (SERMs); Z85.3 Personal history of malignant neoplasm of breast; E66.9 Obesity, unspecified; Z68.29 Body mass index [BMI] 29.0-29.9, adult
CPT/HCPCS: 58558; 88305; A9270; J0690; J1100; J2003; J2250; J2405; J2704; J3010; J7120

== ENCOUNTER 2025-03-17 01:09 | Day surgery (SDC) | payer BC, OTHER, SELFPAY ==
[2025-03-10 08:16] VITALS: BMI 29.0
--- NOTE | 2025-03-10 08:28 | PC.NURSE ---
Report to the Outpatient Waiting Room, entrance under the green pavilion located off [facility], at time __10:15am on date __03/17/25 . Planned Procedure Time: _12:15pm .? Time changes happen often and if your time is changed the preop area will call you the afternoon before. - You and your visitor will be asked to self-screen and do not enter if you have any COVID symptoms. Please call surgeon if you need to reschedule. - A mask is optional within the hospital at this time. Patients may have clear liquids (water, carbonated beverages, clear teas, apple juice) until 3 hours prior to surgery with a maximum of 20 ounces. - No food from midnight until time of surgery and no smoking, or chewing tobacco (or any form of nicotine). No chewing gum, candy or mints. ( 0915am) Take only the following medications with a SIP of water on the morning of surgery: Levothyroxine DO NOT STOP ANY OF YOUR OTHER PRESCRIPTION MEDICATIONS PRIOR TO SURGERY EXCEPT THE FOLLOWING Hold all vitamins and supplements for 3 days per anesthesiologist. Date to take last dose is 03/13/25 Medications to discontinue per physician NONE Date to take last dose NONE Please no make-up, nail liberian, hairspray, perfume, deodorant, or body powder the day of surgery.? No jewelry (including any body piercings) or valuables the day of surgery, leave them at home.? Please take a shower or bath the night before, or the morning of, surgery with an antibacterial soap.? Wear comfortable, loose fitting clothing.? - Jewelry must be removed prior to entering the operating room.? Rings and piercings that are not removed may be cut off. - The hospital will not accept responsibility for valuables.? - Please leave all valuables, including medications, at home the day of surgery. If you are going home after surgery, a licensed local delivery driver must drive you home.? - NO public transportation without another adult if you receive anesthesia. - We recommend that an adult stay with you for 24 hours following discharge. - We also recommend that you do not drive, make important decision, drink alcoholic beverages, or take any drugs that were not prescribed by your health care provider for at least 24 hours after your discharge time. Follow any additional instructions given to you from your surgeon. Telephone instructions given to ___Patient and asked if any additional questions and then verbalized understanding. Patient advised to call surgeon office or pre surgery nurse liaison [phone] if any additional questions.
--- NOTE | 2025-03-16 13:08 | P.HP_ITS ---
H&P: HPI History of Present Illness Date/Time: 03/16/25 13:08 Chief Complaint: thickened endometrium on US history of tamoxifen use Narrative: 54 yo female who present for hysteroscopy D&C for thickened endometrium in the setting of tamoxifen use. Patient had previously undergone hysteroscopy D&C for tissue sampling. Sample came back inadequate with no identifiable endometrial tissue. Patient presents today for repeat tissue sampling. Review of Systems Cardiovascular: Cardiovascular: Denies chest pain, Denies leg edema, Denies palpitations, Denies dyspnea and Denies dyspnea on exertion Respiratory: Respiratory: Denies cough, Denies dyspnea and Denies dyspnea on exertion Gastrointestinal: Gastrointestinal: Denies abdominal pain, Denies constipation, Denies diarrhea, Denies nausea and Denies vomiting Genitourinary: Genitourinary: Denies hematuria, Denies urinary frequency, Denies dysuria, Denies pelvic pain, Denies urinary incontinence and Denies vaginal discharge Neurologic: Reports system reviewed and no additional complaints, except as documented Psychiatric: Psychiatric: Reports no additional psychiatric complaints Endocrine: Endocrine: Denies palpitations PMFSH Past Medical History Medical History Vaginal delivery x2 Hypothyroidism Breast cancer Stage 2, Right breast ALL (acute lymphoblastic leukemia) Anxiety Depression Acid reflux Surgical History Surgical History (Updated 02/11/25 @ 08:34 by Aliza Rucker CMA) S/P dilation and curettage History of cholecystectomy History of lumpectomy 2012, right breast History of colposcopy Family History Family History Sibling Breast cancer Mother Diabetes mellitus Grandparent Acute myocardial infarction grandmother Father Hypertension Hypercholesteremia Cerebrovascular accident Social History Social History Smoking status: Never smoker Alcohol intake: never Substance use: current Substance use type: marijuana Other substance usage details: Edible Cookies to help sleep at night Last use: quit a month ago. Do You Feel Safe in your Home?: Yes Lack of Transportation: No Lack of Food: Never True Current Housing: I Have Housing Concerned About Future Housing: No Difficulty Paying Gas/Electric Bills: No Difficulty Paying for Meds: No Currently Unemployed: No Education: Bachelor's Degree Difficulty w/ Childcare or Family Care: No Living arrangements: alone Additional living arrangements comments: children Occupation/Education: unemployed Gender identity (if verbalized by the patient): Female Sexual Orientation (if Verbalized by the Patient): Straight or Heterosexual Spiritual care concerns: No Meds Home Medications and Allergies Home Medications ?Medication ?Instructions ?Recorded ?Confirmed ?Type levothyroxine 75 mcg capsule 75 mcg PO DAILY 11/09/20 03/10/25 History melatonin 10 mg capsule See Rx Instructions PO .COMPLEX 11/09/20 03/10/25 History biotin 1 mg capsule 1 mg PO DAILY 11/15/21 03/10/25 History famotidine 20 mg tablet (Pepcid) 20 mg PO DAILY 11/15/21 03/10/25 History vit no.95-ferrous 1 tablet PO DAILY 01/22/25 03/10/25 History fumarate 28 mg-folic acid 800 mcg tablet () acetaminophen 500 mg tablet 500 mg PO Q6H PRN pain #30 tabs 01/29/25 03/10/25 Rx ibuprofen 600 mg tablet 600 mg PO Q6H PRN pain #30 tabs 01/29/25 03/10/25 Rx Allergies Allergy/AdvReac Type Severity Reaction Status Date / Time azithromycin (From Zithromax) Allergy Intermediate Hives Verified 03/10/25 08:14 codeine Allergy Intermediate Hives Verified 03/10/25 08:14 pantoprazole Allergy Mild Nausea Verified 03/10/25 08:14 levofloxacin (From Levaquin) AdvReac Intermediate Nausea Verified 03/10/25 08:14 Exam Const: General: no acute distress Eyes: EOM: EOMs intact bilaterally Neck: Neck: supple Thyroid: thyroid normal Chest: Breast/axilla inspection: normal inspection of the breasts Breast/axilla palpation: normal palpation of the breasts, normal palpation of the axillae and no axillary lymphadenopathy Resp: Effort & Inspection: normal respiratory effort Auscultation: clear to auscultation bilaterally Cardio: Rate: regular rate Rhythm: regular rhythm GI: Inspection: non-distended GI Palp: Yes Soft to palpation, No Tenderness to palpation present (GI) and No Guarding due to palpation present (GI) Auscultation: normal bowel sounds : General: No bladder normal to palpation External Female Exam: normal external appearance Speculum Exam - Vagina: normal vaginal discharge and No vaginal bleeding Speculum Exam - Cervix: nontender Bimanual exam- vagina & uterus: No bladder normal to palpation and No Cervical tenderness present OB/external & speculum: No vaginal bleeding Skin: General skin exam: normal color and no rashes or lesions noted Neuro: Cognition (Neuro): normal cognition Speech: normal speech Extrem: General: normal to inspection and no edema Psych: Mental Status: mental status grossly normal Affect: normal affect Assessment and Plan Assessment and plan (1) Endometrial thickening on ultrasound: Code(s): R93.89 - Abnormal findings on diagnostic imaging of other specified body structures Status: Acute Assessment and Plan: 54-year-old female who presents for hysteroscopy D&C to evaluate endometrium Patient has a history of breast cancer and tamoxifen use Patient denies any abnormal bleeding Pelvic ultrasound showed a thickened irregular endometrium at 10 mm Recommended endometrial sampling due to increased risk for uterine cancer with tamoxifen use Recommended hysteroscopy D&C Risks, benefits, alternatives reviewed Will plan for hysteroscopy, D&C for tissue sampling (2) Use of tamoxifen (Nolvadex): Code(s): Z79.810 - [facility] (current) use of selective estrogen receptor modulators (SERMs) Status: Acute
--- OUTSIDE RECORDS SUMMARY | 2025-03-17 01:11 | XMS_ITS | Encounter Summary ---
Author Organization [facility] Healthcare Address [address] [place] [address] Care Team Providers Care Genetics Nurse Name Role Phone Sharifa Sin Herminio GALO Primary Care Provider [phone] Leslie Parker MD Unavailable [phone] Tata Bang MD Unavailable Rima Peraza MD Unavailable [phone] Kenny Ansari MD Unavailable [phone] Messi Goff MD Unavailable [phone] Messi Saunders MD Primary Care Provider [phone] Kenny Ansari MD Unavailable [phone] Encounter Details Date Type Department Care Team (Late st Contact Info) Description 05/20/2020 E-Visit [facility] HealthCare/ Physicians [address] [place] [address] Kimmy Villasenor, WASHERY BOSS [address] [facility] [address] [place] [address] RE: E-Visit Submission: COVID-19 Evaluation Social [...] on file Legal 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[employer] Gender Identity Female 10/19/2022 10:44 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 [employer] Sexual Orientation Not on file documented as [...] COVID: Suspected 10/02/2023 10/02/2023 10/02/2023 8:50 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 [employer]MENT COVID: Suspected 07/15/2024 07/15/2024 07/15/2024 10:38 AM CDT documented as of this encounter Care Teams Genetics Nurse Relationship Specialty Start Date End Date Merrick Sharifa DurhamDO PCP - General 05/27/19 12/14/22 [place] [id number] [address] PCP - General Internal Medicine 12/15/22 Leslie Parker MD Sales Support Advisor Obstetrics and Gynecology 07/07/19 Tata Bang MD Surgeon Surgical Oncology 07/07/19 [place] [address] [place] [address] Referring Physician Endocrinology Diabetes & Metabolism 09/01/19 [place] [address] [place] [address] Medical Oncologist/Hematologis t Hematology and Oncology 02/10/20 01/16/23 Messi Goff MD [address] [place] [address] Consulting Physician Gastroenterology 11/17/21 [place] [id number] [address] Medical Oncologist/Hematologis t Hematology and Oncology 01/17/23 documented as of this encounter
--- OUTSIDE RECORDS SUMMARY | 2025-03-17 01:11 | XMS_ITS | Clinical Summary ---
Author Organization [facility] Address [address] [place] [address] Care Team Providers Care Mortgage Loan Underwriter Name Role Phone Leslie Parker MD Unavailable [phone] Tata Bang MD Unavailable [phone] Rima Peraza MD Unavailable [phone] Messi Goff MD Unavailable [phone] Messi Saunders MD Primary Care Provider [phone] Kenny Ansari MD Unavailable [phone] Allergies Active Allergy Reactions Criticality Noted Date [...] (25 mg total) by mouth 04/07/2023 Active collagen-biotin- ascorbic acid (Collagen 1500 Plus C) 500 mg-800 mcg- 50 mg capsule 10/08/2024 Active famotidine (PEPCID AC MAXIMUM STRENGTH ORAL) 10/08/2024 Active ibuprofen (ADVIL,MOTRIN) 600 mg tablet Take by mouth every 6 (six) hours as needed 01/29/2025 Active Lactobacillus no.46/B.animalis (PROBIOTIC-10 ORAL) 01/06/2025 Active levocetirizine (XYZAL) 2.5 mg/5 mL solution 11/08/2024 Active 25/iron fum/folic/dha (-1 ORAL) 01/06/2025 Active pumpkin seed extract 500 mg capsule 12/06/2024 Active Active Problems Problem Noted Date Diagnosed Date Abnormal MRI, breast 07/02/2023 Odynophagia 02/13/2022 Overview (02/13/2022): Added automatically from request for surgery [id number] Screening for colon cancer 02/13/2022 Overview (02/13/2022): Added automatically from request for surgery [id number] Invasive ductal carcinoma of right breast in fem sania 12/18/2019 BMI 29.0-29.9,adult 07/07/2019 History of long-term treatment with high-risk me dication 07/07/2019 Vitamin D deficiency 08/14/2017 History of breast cancer 08/01/2017 Assessment & Plan (11/11/2020 3:12 PM GINSENG FARMER): Currently taking tamoxifen. Managed by Oncology. Hypothyroidism due to Boris's thyroiditis Assessment & Plan (11/11/2020 3:11 PM GINSENG FARMER): Stable. Cont. Current meds. Managed by endocrinology. Assessment & Plan (11/07/2019 6:39 PM GINSENG FARMER): Managed by endocrinology. Gastroesophageal reflux disease 06/15/2014 Overview (01/11/2017): Gastroesophageal reflux disease Assessment & Plan (02/13/2022 2:56 PM CDT): egd Assessment & Plan (11/07/2019 6:40 PM GINSENG FARMER): Managed by GI. Malignant neoplasm of breast 06/05/2013 Overview (01/12/2017): Breast cancer, right breast Assessment & Plan (11/07/2019 6:40 PM GINSENG FARMER): Managed by Heme/Onc. Chronic venous insufficiency 05/08/2013 Overview (01/12/2017): Venous insufficiency Carcinoma in situ of breast 05/07/2013 Resolved Problems Problem Noted Date Diagnosed Date Resolved Date Screening for thyroid disorder 11/11/2020 11/11/2020 Biliary dyskinesia 01/10/2019 9 Overview (01/10/2019): Added automatically from request for surgery [id number] Nausea 12/20/2018 11/07/2019 Assessment & Plan (12/20/2018 [...] (12/20/2018): Added automatically from request for surgery [id number] Abdominal pain 12/20/2018 11/07/2019 Overview (12/20/2018): Added automatically from request for surgery [id number] Assessment & Plan (03/10/2019 2:13 PM CDT): All sx resolved with nazario. Have pmd repeat LFTs to be sure of normalizzation and return prn Nausea and vomiting 12/20/2018 11/07/19 Overview (12/20/2018): Added automatically from request for surgery [id number] Calculus of gallbladder with out cholecystitis without obstruction 12/13/2018 02/19/2019 Assessment & Plan (12/13/2018 11:13 AM GINSENG FARMER): Patient main concern is of nausea, unrelated, [...] recap. Assessment & Plan (12/13/2018 11:12 AM GINSENG FARMER): Slow rise in lft's (ast and alt) [...] 02/21/2014 020 Overview (01/12/2017): ABNORMAL WEIGHT GAIN Acute lymphoblastic leukemia (ALL) 02/21/2014 02/05/2025 Overview (01/13/2017): Acute Lymphocytic Leukemia Assessment & Plan (11/07/2019 6:40 PM GINSENG FARMER): Managed by Heme/Onc. Anxiety 12/27/2012 11/11/2020 Overview (01/10/2017): Anxiety Encounters Date Type Department Care Team Description 02/12/2025 8:46 AM CDT - 02/12/2025 11:59 PM CDT Hospital Encounter [facility] [address] [place] [id number] History of breast cancer Discharge Disposition: Discharge to home or self care 02/12/2025 Results Follow-Up [facility] [address] [phone] Alise Enriquez NP MRI Breast Bilateral W WO Contrast 02/05/2025 11:30 AM CDT Office Visit [facility] [address] [place] [address] Medical Office [address] [place] [address] Ken Weston MD Invasive ductal carcinoma of right breast in female (HCC) (Primary Dx) 02/05/2025 11:00 AM CDT Lab [address] [place] [address] Invasive ductal carcinoma of right breast in female (HCC) 02/04/2025 Telephone [facility] [address] [place] [address] Medical Office [address] [place] [address] Linsey Thomas, CLT from Last 3 Months Immunizations Immunization Administration Dates Next Due Influenza, Quadrivalent, Mlily l Culture-based MDCK, Preservative Free, Antibiotic Free, Intramuscular 09/10/2023 Influenza, Quadrivalent, Hig h Dose, Preservative Free, Intrr 07/30/2022 Influenza, Quadrivalent, Spl it, Intramuscular 08/23/2016 Influenza, Quadrivalent, Spl it, Preservative Free, Intramuscular 08/07/2022,07/30/2021,07/11/2020 Influenza, Unspecified 09/11/2023,2019,07/11/2019,08/02 AlphaStripe (J&J) SARS-CoV-2 Vaccination 12/13/2020 Pneumococcal Conjugate Pcv20 [...] (acute lymphoblastic leukemia) (HCC) 1990 chemo from [id number] Family History Medical History Relation Name Comments [...] on file Legal Sex Female 10:29 AM GINSENG FARMER Gender Identity Female 10/19/2022 10:44 AM GINSENG FARMER Sexual Orientation Not on file Obstetrics History Last Filed Vital Signs Vital Sign Reading Time Taken Comments Blood Pressure 121/72 02/05/2025 11:17 AM CDT Pulse 66 02/05/2025 11:17 AM CDT Temperature 36.3 C (97.3 F) 02/05/2025 11:17 AM CDT Respiratory Rate 20 02/05/2025 11:17 AM CDT Oxygen Saturation 97% 02/05/2025 11:17 AM CDT Inhaled Oxygen Concentration - - Weight 64.4 kg (142 lb) 02/12/2025 9:07 AM CDT Height 149.9 cm (4' 11) 02/12/2025 9:07 AM CDT Body Mass Index 28.68 02/12/2025 9:07 AM CDT Plan of Treatment Health Maintenance Due Date Last Done Comments Hepatitis B Screening 1990 Cervical Cancer Screening 11/09/2021 11/09/2020 Depression Screening 11/17/2022 11/17/2021, 02/09/2021, 02/02/2021, Additional history exists Regular Well Visit/Exam 18-64 11/17/2022 11/17/2021, 11/11/2020, 11/07/2019 Breast Cancer Screening-Mammogram 08/13/2025 08/13/2024, 07/02/2023, 06/23/2022, Additional history exists DTaP/Tdap/Td Vaccine (2 - Td or Tdap) 11/17/2031 11/17/2021 Colon Cancer Screening-Colonoscopy 02/17/2032 02/16/2022, 05/05/2011 Hepatitis C Screening Completed 11/11/2020 , 07/23/2019, 12/24/2018 Pneumococcal vaccine <65 Aged Out 09/17/2023 No longer eligible based on patient's age to complete this topic Zoster Vaccine Completed 11/18/2023, 09/17/2023 Covid-19 Vaccine Completed 07/22/2024, 01/2023, 08/07/2022, Additional history exists Influenza Vaccine Completed 07/22/2024, , 09/10/2023, Additional history exists Medical Devices Implanted Type Area Bread Supervisor Device Identifier Shelf Expiration Date Model / Serial / Lot Breast Marker Clip Right: Breast Procedures Procedure Name Priority Date/Time Associated Diagnosis Comments MRI BREAST BILATERAL W WO CONTRAST Schedule Routine, Read Routine (OP Routine) 02/12/2025 9:43 AM CDT History of breast cancer EGFR Routine 02/05/2025 11:10 AM CDT Invasive ductal carcinoma of right breast in female (HCC) DIFFERENTIAL AUTO STAT 02/05/2025 11: 10 AM CDT CBC WITH AUTO DIFFERENTIAL STAT 02/05/2025 11:10 AM CDT COMPREHENSIVE METABOLIC PANEL Routine 02/05/2025 11:10 AM CDT Invasive ductal carcinoma of right breast in female (HCC) CEA Routine 02/05/2025 11:10 AM CDT Invasive ductal carcinoma of right breast in female (HCC) SCREENING MAMMOGRAM BILATERAL W BROCK Schedule Routine, Read Routine (OP Routine) 08/13/2024 11:29 AM GINSENG FARMER Breast cancer screening, high risk patient COLONOSCOPY 02/16/2022 11:50 AM CDT HEPATITIS C ANTIBODY Routine 11/11/2020 2:33 PM GINSENG FARMER Encounter for hepatitis C screening test for low risk patient HM PAP SMEAR WITH HPV Routine 11/09/2020 9:41 AM GINSENG FARMER from Last 3 Months or Most Recently Relevant to Health Maintenance Results * MRI Breast Bilateral W WO Contrast (02/12/2025 9:43 AM CDT) Anatomical Region Laterality Modality Breast Bilateral Magnetic Resonan ce 02/12/2025 10:3 7 AM CDT Impressions 02/12/2025 10:47 AM CDT Stable changes of breast conservation therapy in the right breast without suspicious abnormality in either breast. OVERALL FINAL ASSESSMENT: BI-RADS Category 2: Benign. RECOMMENDATION: Annual screening mammography, with screening breast MRI if clinically indicated, are recommended. Dictated by: Luis Enrique Dumont M.D. The radiology attending physician has personally reviewed this study, and had reviewed and/or edited this written report and agrees with it. Electronically signed by: Kelly Wallace M.D. Narrative 02/12/2025 10:47 AM CDT EXAMINATION: 1. MRI EXAMINATION OF THE BREASTS WITH AND WITHOUT CONTRAST 2. 3D POST PROCESSING ON A DEDICATED 3D WORKSTATION HISTORY: High-risk Screening. 54-year-old woman with history of right breast invasive ductal carcinoma treated with breast conservation therapy in 2012. TECHNIQUE: MRI examination of the breasts per breast tumor protocol with and without gadolinium contrast. A dedicated breast imaging coil was used. The images were transferred to a breast CAD system for 3D post processing and contrast kinetics analysis. CONTRAST: Gadoterate meglumine, 12 ml COMPARISON: Breast MRI dated 02/01/2024 BREAST COMPOSITION: Scattered fibroglandular tissue BACKGROUND PARENCHYMAL ENHANCEMENT: Minimal FINDINGS: There are changes of breast conservation therapy in the right breast. There is an unchanged thin rim of enhancement in the lumpectomy cavity. No suspicious mass or non-mass enhancement in either breast. No abnormally enlarged lymph nodes are identified in the visualized portions of either axilla. Procedure Note Kelly Wallace MD - 02/12/2025 EXAMINATION: 1. MRI EXAMINATION OF THE BREASTS WITH AND WITHOUT CONTRAST 2. 3D POST PROCESSING ON A DEDICATED 3D WORKSTATION HISTORY: High-risk Screening. 54-year-old woman with history of right breast invasive ductal carcinoma treated with breast conservation therapy in 2012. TECHNIQUE: MRI examination of the breasts per breast tumor protocol with and without gadolinium contrast. A dedicated breast imaging coil was used. The images were transferred to a breast CAD system for 3D post processing and contrast kinetics analysis. CONTRAST: Gadoterate meglumine, 12 ml COMPARISON: Breast MRI dated 02/01/2024 BREAST COMPOSITION: Scattered fibroglandular tissue BACKGROUND PARENCHYMAL ENHANCEMENT: Minimal FINDINGS: There are changes of breast conservation therapy in the right breast. There is an unchanged thin rim of enhancement in the lumpectomy cavity. No suspicious mass or non-mass enhancement in either breast. No abnormally enlarged lymph nodes are identified in the visualized portions of either axilla. IMPRESSION: Stable changes of breast conservation therapy in the right breast without suspicious abnormality in either breast. OVERALL FINAL ASSESSMENT: BI-RADS Category 2: Benign. RECOMMENDATION: Annual screening mammography, with screening breast MRI if clinically indicated, are recommended. Dictated by: Luis Enrique Dumont M.D. The radiology attending physician has personally reviewed this study, and had reviewed and/or edited this written report and agrees with it. Electronically signed by: Kelly Wallace M.D. Alise Enriquez NP IMG MRI PROCEDURES Final R esult * eGFR (02/05/2025 11:10 AM CDT) eGFR >90 >=60 mL/min/1. 73 m2 Comment: Interpretive Data Reference Interval Normal >/= 90 mL/min/1.73m2 Mildly decreased* 60 - 89 mL/min/1.73m2 Mildly to moderately decreased 45 - 59 mL/min/1.73m2 Moderately to severely decreased 30 - 44 mL/min/1.73m2 Severely decreased 15 - 29 mL/min/1.73m2 Kidney Failure < 15 mL/min/1.73m2 *Relative to young adult level Estimated glomerular filtration rate is determined by the 2020 CKD-EPI equation recommended by the National Kid[employer] (A Unifying Approach to GFR Estimation: Recommendations of the NKF-ASK Task Force on Reassessing the Inclusion of Race in Diagnosing Kidney Disease, JASN 2020). The CKD-EPI equation should not be used for patients with unstable renal function and has not been validated in children and those over 70. Current interpretive data was last reviewed 2021. Testing performed by: [facility], [place], [address] Blood 02/05/2025 11:1 0 AM CDT 02/05/2025 11:47 AM CDT Danielle Whittington Akbar PROMOTIONS ASSOCIATE LAB BLOOD ORDERABLES Final Result [facility] ([place]) [facility] Department [place] [address] * Differential, auto (02/05/2025 11:10 AM CDT) Neutrophil abs 4.04 1.50 - 6.50 K/cumm Comment:Testing performed by : [facility], [place], [address] Imm gran abs 0.05 0.00 - 0.10 K/cumm [facility] ([place]) Comment:Testing performed by : [place], [address] Lymphocyte abs 2.22 0.80 - 3.30 K/cumm [facility] ([place]) Comment:Testing performed by : [facility], [place], [address] Monocyte abs 0.49 0.20 - 0.80 K/cumm [facility] ([place]) Comment:Testing performed by : [facility], [place], [address] Eosinophil abs 0.18 0.00 - 0.50 K/cumm [facility] ([place]) Comment:Testing performed by : [facility], [place], [address] Basophil abs 0.05 0.00 - 0.10 K/cumm [facility] ([place]) Comment:Testing performed by : [place], [address] Neutrophil pct 57.4 % [facility] ([place]) Comment: Interpretive Data Percent cell count reference ranges are not reported, since discordance with absolute values may lead to misinterpretation of CBC data. Current Interpretive Data was last revised on 2018. Testing performed by: [place], [address] Imm gran pct 0.7 % [facility] ([place]) Comment: Interpretive Data Percent cell count reference ranges are not reported, since discordance with absolute values may lead to misinterpretation of CBC data. Current Interpretive Data was last revised on 2018. Testing performed by: [place], [address] Lymphocyte pct 31.6 % [facility] ([place]) Comment: Interpretive Data Percent cell count reference ranges are not reported, since discordance with absolute values may lead to misinterpretation of CBC data. Current Interpretive Data was last revised on 2018. Testing performed by: [place], [address] Monocyte pct 7.0 % [facility] ([place]) Comment: Interpretive Data Percent cell count reference ranges are not reported, since discordance with absolute values may lead to misinterpretation of CBC data. Current Interpretive Data was last revised on 2018. Testing performed by: [place], [address] Eosinophil pct 2.6 % [facility] ([place]) Comment: Interpretive Data Percent cell count reference ranges are not reported, since discordance with absolute values may lead to misinterpretation of CBC data. Current Interpretive Data was last revised on 2018. Testing performed by: [place], [address] Basophil pct 0.7 % [facility] ([place]) Comment: Interpretive Data Percent cell count reference ranges are not reported, since discordance with absolute values may lead to misinterpretation of CBC data. Current Interpretive Data was last revised on 2018. Testing performed by: [place], [address] Blood 02/05/2025 11:1 0 AM CDT 02/05/2025 11:51 AM CDT us Ken Weston MD LAB BLOOD ORDERABLES Ciarra erazo Result [facility] ([place]) 1 [facility] Department [place] [address] * CBC with auto differential (02/05/2025 11:10 AM CDT) WBC 7.03 3.80 - 9.90 K/cumm Comment:Testing performed by : [place], [address] Hgb 14.0 11.9 - 15.5 g/dL [facility] ([place]) Comment:Testing performed by : [facility], [place], [place], Hct 42.8 35.6 - 45.5 % [facility] ([place]) Comment:Testing performed by : [facility], [place], [place], Plt 251 150 - 400 K/cumm [facility] ([place]) Comment:Testing performed by : [place], [place], MPV 9.9 9.1 - 12.3 fL [facility] ([place]) Comment:Testing performed by : [place], RBC 4.83 3.90 - 5.20 M/cumm [facility] ([place]) Comment:Testing performed by : [place], MCV 88.6 81.3 - 96.4 fL [facility] ([place]) Comment:Testing performed by : [place], MCH 29.0 27.1 - 33.3 pg [facility] ([place]) Comment:Testing performed by : [place], MCHC 32.7 32.3 - 35.7 g/dL [facility] ([place]) Comment:Testing performed by : [place], [place], RDW CV 13.4 11.1 - 14.9 % [facility] ([place]) Comment:Testing performed by : [place], [address] RDW SD 43.7 35.7 - 48.1 fL [facility] ([place]) Comment:Testing performed by : [facility], [place], [place], NRBC abs 0.00 0.00 - 0.01 K/cumm [facility] ([place]) Comment:Testing performed by : [place], [address] Blood 02/05/2025 11:1 0 AM CDT 02/05/2025 11:51 AM CDT Ken Weston MD LAB BLOOD ORDERABLES Ciarra l Result Performing Organization Address [facility] Co de Phone Number [facility] ([place]) [address] [place] [address] Department [place] [address] * CEA (02/05/2025 11:10 AM CDT) CEA 1.8 0.1 - 5.0 ng/mL Comment: Interpretive Data The Nenita CEA assay procedure was used. Results from different manufacturers or methods may not be comparable. Serial testing should be performed using the same method. Testing performed by: [facility], [address] [place] [address]., [address] Blood 02/05/2025 11:1 0 AM CDT 02/05/2025 1:53 PM CDT Danielle Webber NP LAB BLOOD ORDERABLES Final Result Performing Organization Address [facility] Co de Phone Number [facility] ([place]) [address] [place] [address] Department [place] [address] * Comprehensive metabolic panel (02/05/2025 11:10 AM CDT) Sodium 138 135 - 145 mmol/L Comment:Testing performed by : [place], [address] Potassium, pl 4.3 3.3 - 4.9 mmol/L [facility] ([place]) Comment:Testing performed by : [place], [address] Chloride 104 97 - 110 mmol/L [facility] ([place]) Comment:Testing performed by : [place], [address] CO2 23 22 - 32 mmol/L [facility] ([place]) Comment:Testing performed by : [place], [address] Anion gap 11 2 - 15 mmol/L [facility] ([place]) Comment:Testing performed by : [facility], [place], [address] BUN 11 6 - 25 mg/dL [facility] ([place]) Comment:Testing performed by : [facility], [place], [address] Creatinine 0.71 0.60 - 1.10 mg/dL [facility] ([place]) Comment:Testing performed by : [facility], [place], [address] Glucose 89 70 - 199 mg/dL [facility] ([place]) Comment: Interpretive Data Fasting glucose >/= 126 mg/dl is diagnostic for diabetes. Fasting is defined as no caloric intake for at least 8 hours. Fasting glucose between 100 mg/dl to 125 mg/dl is diagnostic of prediabetes. In a patient with classic symptoms of hyperglycemia or hyperglycemic crisis, a random glucose >/= 200 mg/dl is diagnostic for diabetes. In the absence of unequivocal hyperglycemia, results should be confirmed by repeat testing. The classification and Diagnosis of Diabetes Diabetes Care 2021; 46: S19-S40. Current interpretive data was last revised 2022. Testing performed by: [facility], [place], [address] Calcium 9.4 8.5 - 10.3 mg/dL [facility] ([place]) Comment:Testing performed by : [facility], [place], [address] Bilirubin, total 0.4 0.1 - 1.2 mg/dL [facility] ([place]) Comment:Testing performed by : [place], [address] Protein, pl 7.5 6.5 - 8.5 g/dL [facility] ([place]) Comment:Testing performed by : [facility], [place], [address] Albumin 4.2 3.5 - 5.0 g/dL [facility] ([place]) Comment:Testing performed by : [facility], [place], [address] Alk phos 99 40 - 130 Units/L [facility] ([place]) Comment:Testing performed by : [facility], [place], [address] ALT 22 7 - 45 Units/L [facility] ([place]) Comment:Testing performed by : [facility], [facility], [place], [address] AST 29 10 - 45 Units/L RAIMUNDOFARIDEH SORIA ([place]) Comment:Testing performed by : [facility], [facility], [place], [address] Blood 02/05/2025 11:1 0 AM CDT 02/05/2025 11:47 AM CDT Danielle Webber PROMOTIONS ASSOCIATE LAB BLOOD ORDERABLES Final Result [facility] ([place]) 1 [facility] Department [place] [address] * Screening Mammogram Bilateral W Brock (08/13/2024 11:29 AM GINSENG FARMER) Anatomical Region Laterality Modality Breast Bilateral Mammography Narrative 08/13/2024 2:48 PM GINSENG FARMER Mammogram Technique: Bilateral Digital Breast Tomosynthesis, Bilateral C-view 2D Screening mammogram. Views obtained: bilateral craniocaudal and bilateral mediolateral oblique. Computer Aided Detection was performed. Mammogram Findings: The present examination has been compared to prior imaging studies performed at [facility] on 06/23/2022, 12/22/2022 and 07/02/2023. There are [...] compared to prior imaging studies performed at [facility] on 06/23/2022, 12/22/2022 and 07/02/2023. There are scattered areas of fibroglandular density. There are post breast conservation therapy changes in the right breast. There is no suspicious abnormality in either breast. Impression: There is no mammographic evidence of malignancy. Annual screening mammography is recommended. OVERALL FINAL ASSESSMENT: BI-RADS CATEGORY 2: Benign. us Alise Enriquez PROMOTIONS ASSOCIATE IMG MAMMO PROCEDURES Final Result * COLONOSCOPY (02/16/2022 11:50 AM CDT) Anatomical Region Laterality Modality Other Narrative Procedure Note Messi Goff MD - 02/16/2022 11:50 AM CDT [facility] Patient Name: Edita Walter Procedure Date: 02/16/2022 11:50 AM Date of : 1970 Admit Type: Outpatient Age: 51 Gender: Female Attending MD: Messi Goff M.D. [facility] 2 Note Status: Finalized [...] scope was passed under direct vision. TheColonoscope [id number] was introduced through the anus and advanced [...] malignant neoplasm of colon CPT copyright 2020 [employer]. All rights reserved. The codes documented in this report are preliminary and upon mr teacher reviewmay be revised to meet current compliance requirements. Recognized by the [employer] for promoting quality in endoscopy Messi Goff MD ENDOSCOPY PROCEDURES Final Re sult * Hepatitis C antibody (11/11/2020 2:33 PM GINSENG FARMER) Hep C Ab Nonreactive Nonreactive [facility] ([place]) Comment: Interpretive Data Nonreactive: Antibodies to HCV [...] last revised on 2019. Testing performed by: [facility], [address] [place] [address], [facility] Blood specimen (specimen) 11/11/2020 2:33 PM GINSENG FARMER 11/11/2020 6:47 PM GINSENG FARMER Sharifa Sin DO LAB MICROBIOLOGY - GENERAL ORDERABLES Final Result [facility] ([place]) 1 [facility] Department [place] [address] * HM PAP SMEAR WITH HPV (11/09/2020 9:41 AM GINSENG FARMER) Scribed Pap Smear w/HPV Normal 11/09/2020 9:41 AM GINSENG FARMER Historical Provider HEALTH MAINTENANCE Final Result from Last 3 Months or Most Recently Relevant to Health Maintenance Insurance [place] Advance Directives For more information, please contact: [phone] * Full Code (Latest Code Status on File) Date Activated Date Inactivated Comments 02/16/2022 11:58 AM 02/16/2022 6:22 PM * Full Code Date Activated Date Inactivated Comments 02/16/2022 11:57 AM 02/16/2022 11:58 AM * Full Code Date Activated Date Inactivated Comments 12/24/2018 11:54 AM 12/24/2018 5:39 PM * Full Code Date Activated Date Inactivated Comments 12/24/2018 11:54 AM 12/24/2018 11:54 AM Care Teams Mortgage Loan Underwriter Relationship Specialty [place] [address] [address] PCP - General Internal Medicine 12/15/22 Leslie Parker MD Special Projects Manager Obstetrics and Gynecology 07/07/19 Tata Bang MD Surgeon Surgical Oncology 07/07/19 [place] [address] [address] Referring Physician Endocrinology Diabetes & Metabolism 09/01/19 Messi Goff MD [address] [facility] [address] [place] [address] Consulting Physician Gastroenterology 11/17/21 [place] [address] [address] Medical Oncologist/Hematologis t Hematology and Oncology 01/17/23
--- OUTSIDE RECORDS SUMMARY | 2025-03-17 01:11 | XMS_ITS | Referral Summary ---
Author Organization [facility] Address [address] [place] [address] Care Team Providers Care Time Clock Mechanic Name Role Phone Leslie Parker MD Unavailable Tata Bang MD Unavailable [phone] Rima Peraza MD Unavailable Messi Goff MD Unavailable [phone] Messi Saunders MD Primary Care Provider [phone] Kenny Ansari MD Unavailable [phone] Encounters Date Type Department Care Team Description 02/12/2025 Results Follow-Up [facility] Surgery [facility]0 [facility] [address] [place] [id number] Alise Enriquez NP MRI Breast Bilateral W WO Contrast 02/12/2025 8:46 AM CDT - 02/12/2025 11:59 PM CDT Hospital Encounter [facility] [address] [place] [address] History of breast cancer Discharge Disposition: Discharge to home or self care 02/05/2025 11:00 AM CDT Lab [address] [place] [address] Invasive ductal carcinoma of right breast in female (HCC) 02/05/2025 11:30 AM CDT Office Visit [facility] [address] [place] [address] Medical [address] [facility] [address] [place] [address] Ken Weston MD Invasive ductal carcinoma of right breast in female (HCC) (Primary Dx) 02/04/2025 Telephone [facility] [address] [place] [address] Medical Office [facility] [address] [place] [address] Linsey Thomas, CLT from Last 3 Months Allergies Active Allergy Reactions Criticality Noted Date [...] (02/13/2022): Added automatically from request for surgery [id number] Screening for colon cancer 02/13/2022 Overview (02/13/2022): Added automatically from request for surgery [id number] Invasive ductal carcinoma of right breast in fem sania 12/18/2019 BMI 29.0-29.9,adult 07/07/2019 History of long-term treatment with high-risk me dication 07/07/2019 Vitamin D deficiency 08/14/2017 History of breast cancer 08/01/2017 Assessment & Plan (11/11/2020 3:12 PM JAPANESE INTERPRETER): Currently taking tamoxifen. Managed by Oncology. 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 Cont. Current meds. Managed by endocrinology. Assessment & Plan (11/07/2019 6:39 PM JAPANESE INTERPRETER): Managed by endocrinology. Gastroesophageal reflux disease 06/15/2014 Overview (01/11/2017): Gastroesophageal reflux disease Assessment & Plan (02/13/2022 2:56 PM CDT): egd Assessment & Plan (11/07/2019 6:40 PM JAPANESE INTERPRETER): Managed by GI. Malignant neoplasm of breast 06/05/2013 Overview (01/12/2017): Breast cancer, right breast Assessment & Plan (11/07/2019 6:40 PM JAPANESE INTERPRETER): Managed by Heme/Onc. Chronic venous insufficiency 05/08/2013 Overview (01/12/2017): Venous insufficiency Carcinoma in situ of breast 05/07/2013 Resolved Problems Problem Noted Date Diagnosed Date Resolved Date Screening for thyroid disorder 11/11/2020 11/11/2020 Biliary dyskinesia 01/10/2019 9 Overview (01/10/2019): Added automatically from request for surgery [id number] Nausea 12/20/2018 11/07/2019 Assessment & Plan (12/20/2018 [...] (12/20/2018): Added automatically from request for surgery [id number] Abdominal pain 12/20/2018 11/07/2019 Overview (12/20/2018): Added automatically from request for surgery [id number] Assessment & Plan (03/10/2019 2:13 PM CDT): All sx resolved with nazario. Have pmd repeat LFTs to be sure of normalizzation and return prn Nausea and vomiting 12/20/2018 11/07/19 20 Overview (12/20/2018): Added automatically from request for surgery [id number] Calculus of gallbladder with out cholecystitis without obstruction 12/13/2018 02/19/2019 Assessment & Plan (12/13/2018 11:13 AM JAPANESE INTERPRETER): Patient main concern is of nausea, unrelated, [...] recap. Assessment & Plan (12/13/2018 11:12 AM JAPANESE INTERPRETER): Slow rise in lft's (ast and alt) [...] Leukemia Assessment & Plan (11/07/2019 6:40 PM JAPANESE INTERPRETER): Managed by Heme/Onc. Anxiety 12/27/2012 11/11/2020 Overview (01/10/2017): Anxiety Immunizations Immunization Administration Dates Next Due Influenza, Quadrivalent, Milly l Culture-based MDCK, Preservative Free, Antibiotic Free, Intramuscular 09/10/2023 Influenza, Quadrivalent, Hig h Dose, Preservative Free, Intrr 07/30/2022 Influenza, Quadrivalent, Spl it, Intramuscular 08/23/2016 Influenza, Quadrivalent, Spl it, Preservative Free, Intramuscular 08/07/2022,07/30/2021,07/11/2020 Influenza, Unspecified 09/11/2023,2019,07/11/2019,08/02 Babelverse (J&J) SARS-CoV-2 Vaccination 12/13/2020 Pneumococcal Conjugate Pcv20 [...] on file Legal Sex Female 10:29 AM JAPANESE INTERPRETER Gender Identity Female 10/19/2022 10:44 AM JAPANESE INTERPRETER Sexual Orientation Not on file Last Filed [...] 02/12/2025 9:07 AM CDT Plan of Treatment Not on file Medical Devices Implanted Type Area Manager Hair Device Identifier Shelf Expiration Date Model / [...] Read Routine (OP Routine) 08/13/2024 11:29 AM JAPANESE INTERPRETER Breast cancer screening, high risk patient COLONOSCOPY 02/16/2022 11:50 AM CDT HEPATITIS C ANTIBODY Routine 11/11/2020 2:33 PM JAPANESE INTERPRETER Encounter for hepatitis C screening test for low risk patient HM PAP SMEAR WITH HPV Routine 11/09/2020 9:41 AM JAPANESE INTERPRETER from Last 3 Months or Most Recently [...] signed by: Kelly Wallace M.D. Alise Enriquez MANAGER DEVELOPMENT IMG MRI PROCEDURES Final R esult * [...] was last reviewed 2021. Testing performed by: [facility], [facility], [place], [address] Blood 02/05/2025 11:1 0 AM CDT 02/05/2025 11:47 AM CDT Danielle Whittington Akbar MANAGER DEVELOPMENT LAB BLOOD ORDERABLES Final Result [facility]LA SORIA ([place]) 1 [facility] [place] [address] * Differential, auto (02/05/2025 11:10 AM CDT) Neutrophil abs 4.04 1.50 - 6.50 K/cumm Comment:Testing performed by : [facility], [place], [address] Imm gran abs 0.05 0.00 - 0.10 K/cumm [facility] ([place]) Comment:Testing performed by : [place], [address] Lymphocyte abs 2.22 0.80 - 3.30 K/cumm [facility] ([place]) Comment:Testing performed by : [place], [address] Monocyte abs 0.49 0.20 - 0.80 K/cumm [facility] ([place]) Comment:Testing performed by : [place], [address] Eosinophil abs 0.18 0.00 - 0.50 K/cumm [facility] ([place]) Comment:Testing performed by : [place], [address] Basophil abs 0.05 0.00 - 0.10 K/cumm [facility] ([place]) Comment:Testing performed by : [place], [address] Neutrophil pct 57.4 % [facility] ([place]) Comment: Interpretive Data Percent cell count reference ranges are not reported, since discordance with absolute values may lead to misinterpretation of CBC data. Current Interpretive Data was last revised on 2018. Testing performed by: [place], [address] Imm gran pct 0.7 % [facility] ([place]) Comment: Interpretive Data Percent cell count reference ranges are not reported, since discordance with absolute values may lead to misinterpretation of CBC data. Current Interpretive Data was last revised on 2018. Testing performed by: [facility], [facility], [place], [address] Lymphocyte pct 31.6 % [facility] ([place]) Comment: Interpretive Data Percent cell count reference ranges are not reported, since discordance with absolute values may lead to misinterpretation of CBC data. Current Interpretive Data was last revised on 2018. Testing performed by: [place], [address] Monocyte pct 7.0 % [facility] ([place]) Comment: Interpretive Data Percent cell count reference ranges are not reported, since discordance with absolute values may lead to misinterpretation of CBC data. Current Interpretive Data was last revised on 2018. Testing performed by: [place], [address] Eosinophil pct 2.6 % [facility] ([place]) Comment: Interpretive Data Percent cell count reference ranges are not reported, since discordance with absolute values may lead to misinterpretation of CBC data. Current Interpretive Data was last revised on 2018. Testing performed by: [facility], [facility], [place], [address] Basophil pct 0.7 % [facility] ([place]) Comment: Interpretive Data Percent cell count reference ranges are not reported, since discordance with absolute values may lead to misinterpretation of CBC data. Current Interpretive Data was last revised on 2018. Testing performed by: [place], [address] Blood 02/05/2025 11:1 0 AM CDT 02/05/2025 11:51 AM CDT us Ken Weston MD LAB BLOOD ORDERABLES Ciarra erazo Result [facility] S[facility] ([place]) [address] [place] [address] Department [place] [address] * CBC with auto differential (02/05/2025 11:10 AM CDT) WBC 7.03 3.80 - 9.90 K/cumm Comment:Testing performed by : [place], Hgb 14.0 11.9 - 15.5 g/dL [facility] ([place]) Comment:Testing performed by : [facility], [place], Hct 42.8 35.6 - 45.5 % [facility] ([place]) Comment:Testing performed by : [facility], [place], Plt 251 150 - 400 K/cumm [facility] ([place]) Comment:Testing performed by : [place], MPV 9.9 9.1 - 12.3 fL [facility] ([place]) Comment:Testing performed by : [place], RBC 4.83 3.90 - 5.20 M/cumm [facility] ([place]) Comment:Testing performed by : [place], MCV 88.6 81.3 - 96.4 fL [facility] ([place]) Comment:Testing performed by : [place], MCH 29.0 27.1 - 33.3 pg [facility] ([place]) Comment:Testing performed by : [place], MCHC 32.7 32.3 - 35.7 g/dL [facility] ([place]) Comment:Testing performed by : [place], RDW CV 13.4 11.1 - 14.9 % [facility] ([place]) Comment:Testing performed by : [facility], [place], RDW SD 43.7 35.7 - 48.1 fL [facility] ([place]) Comment:Testing performed by : [place], NRBC abs 0.00 0.00 - 0.01 K/cumm [facility] ([place]) Comment:Testing performed by : [facility], [place], Blood 02/05/2025 11:1 0 AM CDT 02/05/2025 11:51 AM CDT us Ken Weston MD LAB BLOOD ORDERABLES Ciarra l Result [facility] SORIA ([place]) 1 [facility] Department [place] [address] * CEA (02/05/2025 11:10 AM CDT) Pathologist [facility] CEA 1.8 0.1 - 5.0 ng/mL Comment: Interpretive Data The Nenita CEA assay procedure was used. Results from different manufacturers or methods may not be comparable. Serial testing should be performed using the same method. Testing performed by: [facility], [address] [place] [address]., [address] Blood 02/05/2025 11:1 0 AM CDT 02/05/2025 1:53 PM CDT Danielle Webber NP LAB BLOOD ORDERABLES Final Result Performing Organization Address City/[facility]/ZIP Co de Phone Number [facility] S[facility] ([place]) 1 [facility] Department [place] [address] * Comprehensive metabolic panel (02/05/2025 11:10 AM CDT) [facility] Sodium 138 135 - 145 mmol/L Comment:Testing performed by : [place], [address] Potassium, pl 4.3 3.3 - 4.9 mmol/L [facility] ([place]) Comment:Testing performed by : [place], [address] Chloride 104 97 - 110 mmol/L [facility] ([place]) Comment:Testing performed by : [place], [address] CO2 23 22 - 32 mmol/L [facility] ([place]) Comment:Testing performed by : [place], [address] Anion gap 11 2 - 15 mmol/L [facility] Comment:Testing performed by : [place], [address] BUN 11 6 - 25 mg/dL [facility] ([place]) Comment:Testing performed by : [facility], [place], [address] Creatinine 0.71 0.60 - 1.10 mg/dL [facility] ([place]) Comment:Testing performed by : [facility], [place], [address] Glucose 89 70 - 199 mg/dL CERNER [...] was last revised 2022. Testing performed by: [facility], [place], [address] Calcium 9.4 8.5 - 10.3 mg/dL [facility] ([place]) Comment:Testing performed by : [facility], [place], [address] Bilirubin, total 0.4 0.1 - 1.2 mg/dL [facility] ([place]) Comment:Testing performed by : [place], [address] Protein, pl 7.5 6.5 - 8.5 g/dL [facility] ([place]) Comment:Testing performed by : [facility], [place], [address] Albumin 4.2 3.5 - 5.0 g/dL [facility] ([place]) Comment:Testing performed by : [place], [address] Alk phos 99 40 - 130 Units/L [facility] ([place]) Comment:Testing performed by : [facility], [place], [address] ALT 22 7 - 45 Units/L [facility] ([place]) Comment:Testing performed by : [facility], [place], [address] AST 29 10 - 45 Units/L [facility] ([place]) Comment:Testing performed by : [facility], [facility], [place], [address] Blood 02/05/2025 11:1 0 AM CDT 02/05/2025 11:47 AM CDT us Danielle Webber MANAGER DEVELOPMENT LAB BLOOD ORDERABLES Final Result KAYLA YANG ([place]) 1 [facility] Department [place] [address] * Screening Mammogram Bilateral W Brock (08/13/2024 11:29 AM JAPANESE INTERPRETER) Anatomical Region Laterality Modality Breast Bilateral Mammography Narrative 08/13/2024 2:48 PM JAPANESE INTERPRETER Mammogram Technique: Bilateral Digital Breast Tomosynthesis, Bilateral C-view 2D Screening mammogram. Views obtained: bilateral craniocaudal and bilateral mediolateral oblique. Computer Aided Detection was performed. Mammogram Findings: The present examination has been compared to prior imaging studies performed at [facility] on 06/23/2022, 12/22/2022 and 07/02/2023. There are [...] compared to prior imaging studies performed at [facility] on 06/23/2022, 12/22/2022 and 07/02/2023. There are scattered areas of fibroglandular density. There are post breast conservation therapy changes in the right breast. There is no suspicious abnormality in either breast. Impression: There is no mammographic evidence of malignancy. Annual screening mammography is recommended. OVERALL FINAL ASSESSMENT: BI-RADS CATEGORY 2: Benign. Alise Enriquez MANAGER DEVELOPMENT IM MAMMO PROCEDURES Final Result * COLONOSCOPY (02/16/2022 11:50 AM CDT) Anatomical Region Laterality Modality Other Narrative Procedure Note Messi Goff MD - 02/16/2022 11:50 AM CDT [facility] Patient Name: Edita Walter Procedure Date: 02/16/2022 11:50 AM Date of : 1970 Admit Type: Outpatient Age: 51 Gender: Female Attending MD: Messi Goff M.D. Room: [facility] ENDOSCOPY ROOM 2 Note Status: Finalized Patient Profile: Refer to note in patient chart for documentation of history and physical. Procedure: Colonoscopy Indications: Screening for colorectal malignant neoplasm, Last colonoscopy: April 2011 Referring MD: Sharifa Sni D.O. Providers: Messi Goff M.D. Impression: - [...] scope was passed under direct vision. TheColonoscope [id number] was introduced through the anus and advanced [...] malignant neoplasm of colon CPT copyright 2020 [employer]. All rights reserved. The codes documented in this report are preliminary and upon anodizer reviewmay be revised to meet current compliance requirements. Recognized by the [employer] for promoting quality in endoscopy us Messi Goff MD ENDOSCOPY PROCEDURES Final Re sult * Hepatitis C antibody (11/11/2020 2:33 PM JAPANESE INTERPRETER) Hep C Ab Nonreactive Nonreactive [facility]AYLA YANG ([place]) Comment: Interpretive Data Nonreactive: Antibodies to HCV [...] last revised on 2019. Testing performed by: [facility], [address] [place] [address]., [address] Blood specimen (specimen) 11/11/2020 2:33 PM JAPANESE INTERPRETER 11/11/2020 6:47 PM JAPANESE INTERPRETER us Sharifa Sin DO LAB MICROBIOLOGY - GENERAL ORDERABLES Final Result KAYLA SOIRA ([place]) 1 [facility] Department [place] [address] * HM PAP SMEAR WITH HPV (11/09/2020 9:41 AM JAPANESE INTERPRETER) Scribed Pap Smear w/HPV Normal 11/09/2020 9:41 AM JAPANESE INTERPRETER us Historical Provider HEALTH MAINTENANCE Final Result from Last 3 Months or Most Recently Relevant to Health Maintenance [place] [place] [address] ACCESS [place] CHO[place] Member Subscriber Plan / Payer (Ef fective 2024-Present) Name:Edita Walter Member ID:[id number] Relation to Subscriber:Self Name:Edita Walter Subscriber ID:[id number] Payer ID:[id number] Type:COMMERCIAL Address: [address] [place] [address] BL CHOICE [place] Advance Directives For more information, please contact: [phone] * Full Code (Latest Code Status on File) Date Activated Date Inactivated Comments 02/16/2022 11:58 AM 02/16/2022 6:22 PM * Full Code Date Activated Date Inactivated Comments 02/16/2022 11:57 AM 02/16/2022 11:58 AM * Full Code Date Activated Date Inactivated Comments 12/24/2018 11:54 AM 12/24/2018 5:39 PM * Full Code Date Activated Date Inactivated Comments 12/24/2018 11:54 AM 12/24/2018 11:54 AM Care Teams Time Clock Mechanic Relationship Specialty [place] [address] [address] PCP - General Internal Medicine 12/15/22 Leslie Parker MD Tripe Washer Obstetrics and Gynecology 07/07/19 Tata Bang MD Surgeon Surgical Oncology 07/07/19 [place] [address] [address] Referring Physician Endocrinology Diabetes & Metabolism 09/01/19 Messi Goff MD [address] [facility] [address] [facility] [place] [address] Consulting Physician Gastroenterology 11/17/21 [place] [address] [address] Medical Oncologist/Hematologis t Hematology and Oncology 01/17/23
--- OUTSIDE RECORDS SUMMARY | 2025-03-17 01:12 | XMS_ITS ---
Author Organization [facility] Address [address] [facility] [place] [address] Care Team Providers Care Sales And Marketing Representative Name Role Phone Leslie Parker MD Unavailable [phone] Rima Peraza MD Unavailable [phone] Tata Bang MD Unavailable [phone] Messi Goff MD Unavailable Messi Saunders MD Primary Care Provider [phone] Active Problems Problem Noted Date Diagnosed Date [...]
--- OUTSIDE RECORDS SUMMARY | 2025-03-17 01:12 | XMS_ITS | Encounter Summary ---
Author Organization [facility] Address [address] [facility] [address] [place] [address] Phone Care Team Providers Care Superintendent Tests Name Role Phone Leslie Parker MD Unavailable Tata Bang MD Unavailable Rima Peraza MD Unavailable [phone] Messi Goff MD Unavailable [phone] Messi Saunders MD Primary Care Provider [phone] Kenny Ansari MD Unavailable [phone] Encounter Details Date Type Department Care Team (Late st Contact Info) Description 02/12/2025 Results Follow-Up [facility] Surgery [address] [facility] Floor 8 [place] [address] Alise Enriquez NP [address] [facility] [id number] [place] [address] MRI Breast Bilateral W WO Contrast Social History Tobacco Use Types Packs/Day Years [...] on file Legal Sex Female 10:29 AM CABLE SPLICING TECHNICIAN Gender Identity Female 10/19/2022 10:44 AM CABLE SPLICING TECHNICIAN Sexual Orientation Not on file documented as of this encounter Plan of Treatment Not on file documented as of this encounter Visit Diagnoses Not on filedocumented in this encounter Care Teams Superintendent Tests Relationship Specialty Start [place] [address] [address] PCP - General Internal Medicine 12/15/22 Leslie Parker MD Guest Services Representative Obstetrics and Gynecology 07/07/19 Tata Bang MD Surgeon Surgical Oncology 07/07/19 [place] [address] [place] [address] Referring Physician Endocrinology Diabetes & Metabolism 09/01/19 Messi Goff MD [address] [facility] [address] [place] [address] Consulting Physician Gastroenterology 11/17/21 [place] [address] [address] Medical Oncologist/Hematologis t Hematology and Oncology 01/17/23 documented as of this encounter
--- OUTSIDE RECORDS SUMMARY | 2025-03-17 01:12 | XMS_ITS | Clinical Summary ---
Author Organization [facility] Address [address] [facility] [place] [address] Care Team Providers Care Rug Cutter Name Role Phone Leslie Parker MD Unavailable [phone] Rima Peraza MD Unavailable [phone] Tata Bang MD Unavailable [phone] Messi Goff MD Unavailable Messi Saunders MD Primary Care Provider [phone] Source Comments [facility],non-owned Affiliates and Associated Physician Practices is amultiple site organization consisting of ambulatory clinics and hospital sitesin [place], [place], [place] and [place]. This disclosure is being madepursuant to the Care Everywhere program and may not contain all information available regarding this patient. Last updated 18.[facility] Allergies Active Allergy Reactions Criticality Noted Date [...] 3 Active levothyroxine (Synthroid) 75 MCG tablet TAKE 1 TABLET BY MOUTH EVERY DAY 100 tablet 3 5 Active Active Problems Problem Noted Date Diagnosed [...] Encounters Date Type Department Care Team Description 01/30/2025 Refill [facility] - Endocrinology [address] [facility], [address] [address] Rima Peraza MD Refill Request from Last 3 Months Family History Medical [...] AM CDT Legal Sex Female 1:26 PM PRINTING PRESS MACHINIST Gender Identity Female 12/19/2022 6:12 AM CDT Sexual Orientation Choose not to disclose 2022 6:12 AM CDT Last Filed Vital Signs Vital Sign Reading Time Taken Comments Blood Pressure 126/86 08/27/2024 10:07 AM PRINTING PRESS MACHINIST Pulse 79 08/27/2024 10:07 AM PRINTING PRESS MACHINIST Temperature 36.7 C (98 F) 04/03/2024 11:08 AM CDT Respiratory Rate 18 04/03/2024 11:08 AM CDT Oxygen Saturation 98% 08/27/2024 10:07 AM PRINTING PRESS MACHINIST Inhaled Oxygen Concentration - - Weight 62.1 kg (137 lb) 08/27/2024 10:07 AM PRINTING PRESS MACHINIST Height 149.9 cm (4' 11) 08/27/2024 10:07 AM PRINTING PRESS MACHINIST Body Mass Index 27.67 08/27/2024 10:07 AM PRINTING PRESS MACHINIST Plan of Treatment Upcoming Encounters Date Type Department Care Team (Late st Contact Info) Description 08/27/2025 10:00 AM PRINTING PRESS MACHINIST Office Visit [facility] - Endocrinology [address] [facility], [address] [place] [address] Rima Peraza [place] [id number] [place] [address] [place] [address] Health Maintenance Due Date Last Done Comments COLOGUARD (AGES 45-75) - COLON CA SCREENING 1970 CT COLONOGRAPHY - COLON CA SCREENING [...] 08/07/2022, Additional history exists SCREENING FOR DIABETES 07/17/2026 , 07/17/2023, 03/19/2023, Additional history exists MAMMOGRAM 08/13/2026 08/13/2024, 03/2024, 07/02/2023, Additional history exists COLON MONITORING 02/17/2032 02/16/2022 COLONOSCOPY - COLON CA SCREENING 02/17/2032 02/16/2022 [...] Agency Comment Lab Testing performed at: [facility] [address] [facility] [phone] us Arianna Wilcox WATER TAXI DRIVER-HOUSEKEEPING MANAGER LAB - CHEMISTRY ORD ERABLES Final Result [facility] ACCOUNT BILL [address] [place] [address] from Last 3 Months or Most Recently Relevant to Health Maintenance Insurance [facility] [employer] SELF PAY NO INSURANCE Member Subscriber Plan / Payer (Ef fective for All Dates) Name:Edita Zamora Member ID:Not on file Relation to Subscriber:Not on file Name:EDITA ZAMORA Subscriber ID:Not on file (Home) Address: [address] [place] [id number] Payer ID:Not on file Group ID:Not on file Type:Self Pay Address: [place], [place] Care Teams Rug Cutter Relationship Specialty [place] [address] [address] PCP - General Internal Medicine 09/10/24 Leslie Parker MD Obstetrics and Gynecology 01/15/14 [place] [address] [facility] [address] [place] [address] Endocrinology 01/25/15 [place] [address] [facility] [address] [place] [address] Surgical Oncology 07/27/16 [place] [address] [facility] [address] [place] [address] Gastroenterology 08/28/19
--- OUTSIDE RECORDS SUMMARY | 2025-03-17 01:12 | XMS_ITS | Continuity of Care Document ---
Author Organization [facility] Address [address] [place] [address] Phone Care Team Providers Care Physical Therapist Center Manager Name Role Phone Messi Saunders MD Unavailable [...] Diagnoses Date Provider Providers Copied on Encounter [facility], [address], [place], [place], [address] , tel: [phone] [facility] No Information 5 Chip Swenson. [address] [place] [address], [address] , [place], [place], [address] , . tel: [phone] Referring Provider: Messi Saunders, [address] [place] [address] [address] , [place], [address] . tel:[phone] PREVENTATIVE -EST: [facility], [address], [place], [place], [address] , tel: [phone] [facility] Chronic Conditions (chief complaint)c hronic conditions (chief complaint) Encounter for annual health examinationAcquired hypothyroidismOAB (overactive bladder)Body mass index [BMI] 26.0-26.9, adult 4 Chip Swenson. [address] [place] [address], [facility] [address] , [place], [place], [address] , . tel: [phone] Referring Provider: Messi Saunders, [address] [place] [address] , [place], [place], [address] [place] [address] . tel:[phone] [facility], [address], [place], [place], [address] , tel: [phone] [facility] No Information 3 Chip Swenson. [address] [place] [address], [address] [place], [place], [address] , . tel: [phone] PREVENTATIVE -NEW: [facility], [address], [place], [place], [id number] , tel: [phone] [facility] preventive exam (chief complaint)C hronic Conditions (chief complaint)c hronic conditions (chief complaint) Encounter for general adult medical examination without abnormal findingsMalignant neoplasm of right female breast, unspecified estrogen receptor status, unspecified site of breastAcquired hypothyroidismHearin g loss of left ear, unspecified hearing loss typeSeasonal allergiesAnxiety and depressionPrimary insomniaUrinary urgencyMicroscopic hematuriaHistory of acute lymphoid leukemiaBody mass index [BMI] 28.0-28.9, adult 3 Elo Winter[address] [place] [address], [address], [place], [place], [address] , . tel: [phone] Referring Provider: Messi Saunders, [address] [place] [address] [address], [place], [address] . tel:[phone] Family History Family Member Type Diagnosis Age [...] Source: Source Unspe cified J&J COVID/Adenovirus Vaccine [id number] viral particles/0.5mL administered Source: Terrie rce Unspecified Payers Payer name Insurance type Covered democrat ID Authoriza tion(s) No Information Social History [...] February 2022. She is going to see finish patcher for well woman exam soon. She sees Dr Peraza for endocrinology, Dr Gresham [facility] for breast cancer (Yessi Rodriguez), She notes she will be seeing Dr Pollard at [place] next month after breast MRI/mammogram. She had [...] February 2022. She is going to see finish patcher for well woman exam soon. She sees Dr Peraza for endocrinology, Dr Gresham 's [facility] for breast cancer (Yessi Rodriguez), She notes she will be seeing Dr Pollard at [place] next month after breast MRI/mammogram. She had [...] care, has mamm and MRI scheduled at [facility] next month and will see specialists as [...]
--- OUTSIDE RECORDS SUMMARY | 2025-03-17 01:12 | XMS_ITS | Encounter Summary ---
Author Organization [facility] Address [address] [place] [address] Care Team Providers Care Inspector Balance Wheel Motion Name Role Phone Sharifa Sin DO Primary Care Provider [phone] Leslie Parker MD Unavailable [phone] Tata Bang MD Unavailable [phone] Rima Peraza MD Unavailable [phone] Gael Yanes MD Unavailable [phone] Kenny Ansari MD Unavailable [phone] Messi Goff MD Unavailable [phone] Messi Saunders MD Primary Care Provider Kenny Ansari MD Unavailable [phone] Encounter Details Date Type Department Care Team (Late st Contact Info) Description 06/30/2019 Documentation [facility] Physicians [address] [facility] [address] [place] [address] Lary Gant MD [address] [facility] [address] [place] [address] Social History Tobacco Use Types Packs/Day Years Used Date Smoking Tobacco: Never Smokeless Tobacco: Never Alcohol Use Standard Drinks/Week Comments Not Currently 0 (1 standard drink = 0.6 oz pur e alcohol) rarely PHQ-2 Answer Date Recorded PHQ-2 Score 0 05/28/2019 Comments No Sex and Gender Information Value Date Recorded Sex Assigned at Not on file Legal Sex Female 10:29 AM [employer]IDENT [employer]UST [employer] Gender Identity Female 10/19/2022 10:44 AM [employer] Sexual Orientation Not on file documented as [...] COVID: Suspected 10/02/2023 10/02/2023 10/02/2023 8:50 AM [employer]IDENT [employer] COVID: Suspected 07/15/2024 07/15/2024 07/15/2024 10:38 AM CDT documented as of this encounter Care Teams Inspector Balance Wheel Motion Relationship Specialty Start Date End Date Merrick Sharifa DO Herminio PCP - General 05/27/19 12/14/22 [place] [address] [address] PCP - General Internal Medicine 12/15/22 Leslie Parker MD Wind Tunnel Engineer Obstetrics and Gynecology 07/07/19 Tata Bang MD Surgeon Surgical Oncology 07/07/19 [place] [address] GW[place] [address] [place] [address] Referring Physician Endocrinology Diabetes & Metabolism 09/01/19 [place] [address] [place] [address] Consulting Physician Medical Oncology 11/07/19 02/09/20 [place] [address] [place] [address] Medical Oncologist/Hematologis t Hematology and Oncology 02/10/20 01/16/23 Messi Goff MD [address] [facility] [address] [place] [address] Consulting Physician Gastroenterology 11/17/21 [place] [address] [address] Medical Oncologist/Hematologis t Hematology and Oncology 01/17/23 documented as of this encounter
--- OUTSIDE RECORDS SUMMARY | 2025-03-17 01:12 | XMS_ITS | Encounter Summary ---
Author Organization [facility] Address [address] [facility] [place] [address] Care Team Providers Care Territory Manager Name Role Phone Leslie Parker MD Unavailable [phone] Rima Peraza MD Unavailable Tata Bang MD Unavailable [phone] Messi Goff MD Unavailable Messi Saunders MD Primary Care Provider [phone] Encounter Details Date Type Department Care Team (Late st Contact Info) Description 03/13/2022 [facility] Outpatient Visit Infusion Services at [facility], [facility] [address] [place] [address] [address] [place], [place] [id number] [place] [address] [facility] [address] [place], [place] [id number] Social History Tobacco Use Types Packs/Day Years Used Date Smoking Tobacco: Never Smokeless Tobacco: Never Alcohol Use Standard Drinks/Week Comments No 0 (1 standard drink = 0.6 oz pur e alcohol) Comments No Sex and Gender Information Value Date Recorded Sex Assigned at Female 12/19/2022 6:12 AM CDT Legal Sex Female 1:26 PM CYLINDER HANDLER Gender Identity Female 12/19/2022 6:12 AM CDT Sexual Orientation Choose not to disclose 2022 6:12 AM CDT documented as of this encounter Plan of Treatment Upcoming Encounters Date Type Department Care Team (Late st Contact Info) Description 08/27/2025 10:00 AM CYLINDER HANDLER Office Visit [facility] - Endocrinology [address] [facility], [address] [address] [place] [address] [address] documented as of this encounter Visit Diagnoses Not on filedocumented in this encounter Care Teams Territory Manager Relationship Specialty [place] [address] [place] [address] [phone] PCP - General Internal Medicine 09/10/24 Leslie Parker MD Obstetrics and Gynecology 01/15/14 Rima Peraza MD [address] [place] [address] Endocrinology 01/25/15 [place] [address] [address] Surgical Oncology 07/27/16 [place] [address] [address] Gastroenterology 08/28/19 documented as of this encounter
[2025-03-17 10:43] VITALS: BP 137/77; PULSE 80; RESP 16; TEMP 37.4; O2SAT 98
[2025-03-17] MEDS: ACETAMINOPHEN 500 MG TABLET 1000 MG PO (10:45)
--- NOTE | 2025-03-17 10:49 | WPDHPUPDATE1 ---
History and Physical Update Update Date/Time: 03/17/25 10:49 History and Physical has been reviewed, including an updated exam of the patient. There are NO changes in the patient's condition. Risks, benefits, and alternatives have been discussed and questions answered. Patient agrees to proceed with procedure.
[2025-03-17] MEDS: LACTATED RINGERS 1,000 ML 30 ML IV CONT (10:50)
--- NOTE | 2025-03-17 10:56 | WPDHPUPDATE1 ---
History and Physical Update Update Date/Time: 03/17/25 10:56 History and Physical has been reviewed, including an updated exam of the patient. There are NO changes in the patient's condition. Risks, benefits, and alternatives have been discussed and questions answered. Patient agrees to proceed with procedure.
--- NOTE | 2025-03-17 11:16 | P.PNAN_ITS ---
Anes - Initial Pre Proc Eval Procedure: Operation Date: 03/17/25 12:30 Proposed Procedures p Hysteroscopy Dilation and Curettage - Aubrey Millan MD Date/Time: 03/17/25 11:16 Surgeon: Aubrey Millan MD Pre Op Diagnosis: Endometrial Hyperplasia Patient Data Age: 54 Gender: F Height: 1.47 m Weight: 64 kg Last Vital Signs Temp 37.4 C 03/17/25 10:43 Pulse 80 03/17/25 10:43 Resp 16 03/17/25 10:43 BP 137/77 03/17/25 10:43 Pulse Ox 98 03/17/25 10:43 O2 Del Method Room Air 03/17/25 10:43 Allergies Allergy/AdvReac Type Severity Reaction Status Date / Time azithromycin (From Zithromax) Allergy Intermediate Hives Verified 03/17/25 10:53 codeine Allergy Intermediate Hives Verified 03/17/25 10:53 pantoprazole Allergy Mild Nausea Verified 03/17/25 10:53 levofloxacin (From Levaquin) AdvReac Intermediate Nausea Verified 03/17/25 10:53 Home Medications ?Medication ?Instructions ?Recorded ?Confirmed ?Type levothyroxine 75 mcg capsule 75 mcg PO DAILY 11/09/20 03/17/25 History melatonin 10 mg capsule See Rx Instructions PO .COMPLEX 11/09/20 03/17/25 History biotin 1 mg capsule 1 mg PO DAILY 11/15/21 03/17/25 History famotidine 20 mg tablet (Pepcid) 20 mg PO DAILY 11/15/21 03/17/25 History vit no.95-ferrous 1 tablet PO DAILY 01/22/25 03/17/25 History fumarate 28 mg-folic acid 800 mcg tablet () acetaminophen 500 mg tablet 500 mg PO Q6H PRN pain #30 tabs 01/29/25 03/10/25 Rx ibuprofen 600 mg tablet 600 mg PO Q6H PRN pain #30 tabs 01/29/25 03/10/25 Rx Patient hx anesthesia problems: none Family hx anesthesia problems: none Results Review: All pre-operative results and documents have been reviewed as part of the pre- operative evaluation. [facility] Past Medical History Medical History Vaginal delivery x2 Hypothyroidism Breast cancer Stage 2, Right breast ALL (acute lymphoblastic leukemia) Anxiety Depression Acid reflux Surgical History Surgical History S/P dilation and curettage History of cholecystectomy History of lumpectomy 2012, right breast History of colposcopy Family History Family History Sibling Breast cancer Mother Diabetes mellitus Grandparent Acute myocardial infarction grandmother Father Hypertension Hypercholesteremia Cerebrovascular accident Social History Social History Smoking status: Never smoker Alcohol intake: never Substance use: current Substance use type: marijuana Other substance usage details: Edible Cookies to help sleep at night Last use: quit a month ago. Do You Feel Safe in your Home?: Yes Lack of Transportation: No Lack of Food: Never True Current Housing: I Have Housing Concerned About Future Housing: No Difficulty Paying Gas/Electric Bills: No Difficulty Paying for Meds: No Currently Unemployed: No Education: Bachelor's Degree Difficulty w/ Childcare or Family Care: No Living arrangements: alone Additional living arrangements comments: children Occupation/Education: unemployed Gender identity (if verbalized by the patient): Female Sexual Orientation (if Verbalized by the Patient): Straight or Heterosexual Spiritual care concerns: No Anes - Eval Final PreProcedure Day of Procedure 03/17/25 11:16 Patient weight: overweight Heart: regular rate and rhythm Lungs: clear to auscultation Airway: Mallampati scale class II Neurological: alert and oriented Last oral intake: >/= 8 hours ASA classification: III Emergent: no Anesthetic plan: proceed Anesthesia type and monitoring: general GIVS and standard monitoring Results Review: All pre-operative results and documents have been reviewed as part of the pre- operative evaluation. Informed Consent: The patient's anesthetic plan and its attendant risks and benefits were discussed with the patient/family/POA. Questions were solicited and answers provided to the satisfaction of the patient/family/POA.
--- NOTE | 2025-03-17 12:10 | S_PTH ---
PATIENT: Edita Walter LOC: [facility] U#:[id number] AGE/SX: 54/F ROOM: RE03/17/[address]: Aubrey Millan MD : 1970 BED: DIS: 03/17/2025 SPEC #: [id number] RECD: 03/17/25 12:29 STATUS: YVROSE REQ #: [id number] JOSE: 03/17/25 12:[address]: Aubrey Millan DEPT: [facility] Surgical RECD BY: Mary Cisneros ENTERED: 03/17/25 12:29 SP TYPE: Surgical OTHR DR: Messi Saunders, Tissues: A - Endometrial Curettings Procedures: Hematoxylin and Eosin Stain Gross and Microscopic Level 4
--- NOTE | 2025-03-17 12:13 | W.PM.PROC2 ---
Procedure Note - Detailed Date of Procedure 03/17/25 Pre-op Diagnosis thickened endometrium on US history of tamoxifen use Post-op Diagnosis Same Procedure Performed hysteroscopy dilation & curettage Surgeon Aubrey Millan MD Anesthesia General Indications abnormal uterine bleeding Findings normal appearing intrauterine cavity. Normal tubal ostia bilaterally Description of Procedure Edita Walter presents for the above procedure. She was counseled as to the indications, risks, benefits, and alternatives to surgery, with the risks including bleeding, infection, damage to surrounding organs, VTE, and complications of anesthesia. Her verbal and written consent was obtained. PROCEDURE: The patient was taken to the OR and general anesthesia induced. She was prepped and draped in Tyler stirrups with support of the back and bilateral lower extremities. A single tooth tenaculum was placed on the anterior lip of the cervix. The cervix was dilated with sequential Yi dilators. Hysteroscopy, using a normal saline medium, was performed and showed the above findings. Operative hysteroscopy was performed and tissue sampling was performed under direct visualization with hysteroscopic resection blade. Sharp uterine curettage was then performed and tissue placed on Telfa. The tenaculum was removed and hemostasis was observed. The patient tolerated the procedure well. Sponge, lap, and needle counts were correct. The patient had SCD's on throughout the case for VTE prophylaxis. The patient was taken to the recovery room in stable condition. Estimated Blood Loss 5 Drains No Packing No Pathology Yes (endometrial curettings ) Complications No immediate complications Condition Stable Disposition PACU [facility] Billing Surgery - Charge Forward: Surgery Billing
[2025-03-17 12:21] VITALS: BP 111/59; PULSE 91; RESP 18; O2SAT 95
[2025-03-17] MEDS: ONDANSETRON INJ 4 MG/2 ML VIAL IV PUSH (12:45)
[2025-03-17 12:50] VITALS: BP 105/65; PULSE 49; RESP 16; O2SAT 96
[2025-03-17 13:30] VITALS: BP 111/59; PULSE 72; RESP 17
== END 2025-03-17 13:52 | disposition home or self-care (01) ==
PROVIDERS: PCP Internal Medicine; Visit Provider Student in an Organized Health Care Education/Training Program
PROC: 0U5B8ZZ Destruction of Endometrium, Via Natural or Artificial Opening Endoscopic (ICD-10-PCS; CPT 58563; principal; 2025-03-17 12:30)
DX: N93.9 Abnormal uterine and vaginal bleeding, unspecified (principal); N85.8 Other specified noninflammatory disorders of uterus; Z85.3 Personal history of malignant neoplasm of breast; F12.90 Cannabis use, unspecified, uncomplicated
CPT/HCPCS: 58558; 88305; A9270; J2003; J2250; J2405; J2704; J3010; J7120